=== PATIENT | female | born 1940 | race Caucasian/White ===

== ENCOUNTER 2023-06-03 16:01 | Outpatient (CLI) | payer MEDICARE, OTHER, SELFPAY ==
--- NOTE | ~2023-06-03 | XR_ITS ---
EXAMINATION: XR abdomen/kub 1V DATE: 06/03/2023 16:23 INDICATION: Acute right flank pain. TECHNIQUE: A supine view of the abdomen on 2 radiographs was obtained. COMPARISON: CT abdomen and pelvis 12/06/2017 FINDINGS: There are no dilated loops of bowel. There is a small volume of stool in the colon. Surgica l clips in the right upper quadrant are likely from cholecystectomy. There are phleboliths in the pel vis. There is a small right pleural effusion. A surgical clip overlies left hip. IMPRESSION: 1. Normal bowel gas pattern. 2. Small right pleural effusion. Reviewed, dictated and finalized at location E.
--- NOTE | ~2023-06-03 | CT_ITS ---
EXAMINATION: CT abdomen pelvis wo con DATE: 06/03/2023 16:28 INDICATION: Acute right flank pain TECHNIQUE: Computed tomography (CT) of the abdomen and pelvis was performed without intravenous contr ast. Automated exposure control and iterative reconstruction technique were employed. Exam dose: 364 .14 mGy-cm total exam DLP. COMPARISON: 06/03/2023 KUB 12/06/2017 CT abdomen pelvis FINDINGS: Mild chronic discoid atelectasis or scarring at the base of the left lower lobe. Peripheral 4 mm nodule, left lower lobe There is compressive atelectasis in the base of the right lower lobe due to mild right pleural effusi on. There is some prominent discoid atelectasis in the lower aspect of the middle lobe. Cardiomegaly. Coronary artery calcification. Status post cholecystectomy. The liver, spleen, pancreas, and adrenal glands are unremarkable on this limited noncontrast examination. Small nonobstructing upper pole left renal calculus is suggested. Left parapelvic cysts are suggested . No ureteral calculus or hydroureteronephrosis. The urinary bladder, uterus and adnexal areas are un remarkable. There is extensive abdominal aortic calcification but no aneurysm. No intraperitoneal or retroperiton eal or pelvic mass lesion or adenopathy or ascites is detected. Small sliding hiatal hernia. Normal appendix. No bowel obstruction, bowel wall thickening, pneumatosis or intraperitoneal free air . Small fat-containing umbilical hernia. No suspicious osteolytic or osteoblastic lesions are noted. IMPRESSION: No ureteral calculus or hydroureteronephrosis Mild right pleural effusion and right lower lobe compressive atelectasis, discoid atelectasis, right middle lobe 4 mm nonspecific peripheral left lower lobe pulmonary nodule Status post cholecystectomy Normal appendix Small sliding hiatal hernia Reviewed, dictated and finalized at Location A. Reviewed, dictated and finalized at location B. IMPRESSION: No ureteral calculus or hydroureteronephrosis Mild right pleural effusion and right lower lobe compressive atelectasis, disco id atelectasis, right middle lobe 4 mm nonspecific peripheral left lower lobe pulmonary nodule Status post cholecystectomy Normal appendix Small sliding hiatal hernia
== END 2023-06-03 16:02 | disposition home or self-care (01) ==
PROVIDERS: PCP Internal Medicine; Visit Provider Nurse Practitioner Adult Health
DX: R10.9 Unspecified abdominal pain (principal); K44.9 Diaphragmatic hernia without obstruction or gangrene; J90 Pleural effusion, not elsewhere classified; Z90.49 Acquired absence of other specified parts of digestive tract
CPT/HCPCS: 74018; 74176

== ENCOUNTER 2024-09-01 14:31 | Outpatient (CLI) | payer MEDICARE, OTHER, SELFPAY ==
[2024-09-03 15:52] LABS: H pylori, Urea Breath NOT DETECTED (NOT DETECTED)
== END 2024-09-01 14:32 | disposition home or self-care (01) ==
PROVIDERS: PCP Internal Medicine; Visit Provider Nurse Practitioner Family
DX: R10.12 Left upper quadrant pain (principal)
CPT/HCPCS: 83013

== ENCOUNTER 2024-09-29 00:57 | Day surgery (SDC) | payer MEDICARE, OTHER, SELFPAY ==
[2024-09-23 10:22] VITALS: BMI 22.0
--- OUTSIDE RECORDS SUMMARY | 2024-09-29 01:00 | XMS_ITS | Continuity of Care Document ---
Author Organization [facility] Address [address] [place] [id number] Phone Care Team Providers Care Stereotyper Name Role Phone Le Sincerelilibeth Unavailable Unavailable Procedures Procedure Date Visual Field Examination-Professional Au Visual Field Examination(s) Office/outpatient Visit, Est Optic Nerve Head Eval IPO Reduced 15% Eye Exam & Treatment Ophthalmoscopy, Subsequent Optic Nerve Topography Office/outpatient Visit, Est Optic Nerve Head Eval IPO Reduced 15% Office/outpatient Visit, Est Optic Nerve Head Eval IPO Reduced 15% Office/outpatient Visit, Est Optic Nerve Head Eval IPO Reduced 15% No Script Office/outpatient Visit, Est Optic Nerve Head Eval IPO Reduced 15% No Script Post-op Follow-up Visit Post-op Follow-up Visit Refraction Post-op Follow-up Visit Remove Cataract, Insert Lens PreOp Assessment Performed IOLMaster Office/outpatient Visit, Est Optic Nerve Head Eval IPO Reduced 15% Visual Field Examination-Professional De c-2008 Visual Field Examination(s) Eye Exam & Treatment Optic Nerve Head Eval Office/outpatient Visit, Est Optic Nerve Head Eval Visual Field Examination-Professional Oc Visual Field Examination(s) Office/outpatient Visit, Est Office/outpatient Visit, Est Advance Directives Directive Yes / No Effective Date File Name No Information Encounters Encounter Description Practice Location Reason(s) For Visit Diagnoses Date Provider Providers Copied on Encounter [facility], [address] [place] [address] [address], [place], [place], [id number], tel:[phone] [facility] [place] No Information 0 Le Lee. [facility] , [address], [place], [place], [facility], . tel:[phone] Referring Provider: Jesus Junior [facility] [address], [place], [facility]. tel:[phone] [facility], [address] [place] [address] [address], [place], [place], [id number], tel:[phone] [facility] [place] No Information 0 Le Lee. [facility] hospital[facility] [address], [address], [place], [facility], . tel:[phone] Referring Provider: [facility] [address], [place], [facility]. tel:[phone] Office/outpat ient Visit, Est [facility], [address] [place] [address] [address], [place], [place], [id number], tel:[phone] [facility] [place] No Information 0 Le Lee. [facility] hospital[facility] [address], [address], [place], [facility], . tel:[phone] [facility], [address], [place], [place], [address], [place] tel:[phone] [facility] [place][note 2] No Information Apr-2 2-201 0 Mandy Gastelum. [facility], [place], [facility], [place]. tel:[phone] Referring Provider: Андрей tirado, [address] [place] [address] [address], [place], [facility]. tel:[phone] [facility]pat [facility], [facility], [address] [place] [address] [address], [place], [place], [address], [place] tel:[phone] [facility] [place][note 2] No Information Mar-2 3-201 0 Kassy Chiang. [address] [place] [address], [place], [facility], [place]. tel:[phone] Office/outpat ient Visit, [facility], [address], [place], [place], [id number], [place] tel:[phone] [facility] [place][note 2] No Information Mar-0 8-201 0 Le Lee. [address] [place] [address] , [address], [place], [facility], [place]. tel:[phone] Office/outpat ient Visit, [facility], [address], [place], [place], [address], [place] tel:[phone] [facility] [place][note 2] No Information Nov-0 9-200 9 Le Lee. [address] [place] [address] , [address], [place], [facility], . tel:[phone] Office/outpat ient Visit, [facility], [address], [place], [place], [address], [place] tel:[phone] [facility] [place] [facility] No Information Jarrod-2 4-200 9 Suresh OD Rex. [address] , [address], [place], [facility], [place]. tel:[phone] [facility], [address], [place], [place], [address], [place] tel:[phone] [facility] [place] No Information Oct-2 5-200 9 Doisy Edward. [address] , [address], [place], [facility], [place]. tel:[phone] [facility], [address] [place] [address] [address], [place], [place], [address], [place] tel:[phone] [facility] [place] No Information b-1 8-200 9 Suresh OD Rex. [address] , [address], [place], [facility], [place]. tel:[phone] [facility], [address] [place] [address] [address], [place], [place], [id number], [place] tel:[phone] [facility] [place][note 2] No Information Feb-0 6-200 9 Doisy Edward. [address] , [address], [place], [facility], [place]. tel:[phone] [facility], [address], [place], [place], [address], [place] tel:[phone] [facility] No Information Feb-0 5-200 9 Doisy Edward. [address] , [address], [place], [facility], [place]. tel:[phone] Referring Provider: Nirav Valadez, [address] [place], [place], [facility]. tel:[phone] [facility], [address] [place] [address] [address], [place], [place], [id number], [place] tel:[phone] [facility] No Information 200 9 Le Lee. [facility] , [address], [place], [address], [place]. tel:[phone] Referring Provider: Jesus Junior, [facility] [address], [place], [facility]. tel:[phone] Office/outpat ient Visit, Est [facility], [address] [place] [address] [address], [place], [place], [address], [place] tel:[phone] [facility] No Information 200 9 Le Lee. [facility] , [address], [place], [facility], [place]. tel:[phone] [facility], [address] [place] [address] [address], [place], [place], [id number], [place] tel:[phone] [facility] [place] No Information 200 8 Le Lee. [facility] , [address], [place], [facility], [place]. tel:[phone] Referring Provider: [facility] [address], [place], [facility]. tel:[phone] [facility], [address] [place] [address] [address], [place], [place], [address], [place] tel:[phone] SEC [facility] No Information 200 8 Le Lee. [facility] , [address], [place], [address], [place]. tel:[phone] Referring Provider: [facility] [address], [place], [facility]. tel:[phone] [facility], [address] [place] [address] [address], [place], [place], [address], [place] tel:[phone] [facility] [place] [facility] No Information Jarrod-2 0-200 8 Le Lee. [facility] , [address], [place], [facility], [place]. tel:[phone] Office/outpat ient Visit, [facility], [address] [place] [address] [address], [place], [place], [id number], tel:[phone] [facility] [place] No Information 1 5-200 8 Doidenilson Lee. [address] [place], [place] [address]ate Center , [address], [place], [facility], [place]. tel:[phone] [facility], [address] [place] [address] [address], [place], [place], [address], tel:[phone] [facility] [place] No Information May-1 0-200 7 Le Lee. [address] [place], [place] [address]ate Center , [address], [place], [facility], [place]. tel:[phone] Referring Provider: Jesus Junior Critical [facility] [address], [place], [facility]. tel:[phone] [facility], [address] [place] [address] [address], [place], [place], [address], tel:[phone] [facility] [place] No Information May-0 3-200 7 Le Lee. [facility] [address], [address], [place], [facility], [place]. tel:[phone] Referring Provider: Jesus Junior Critical [facility] [address], [place], [facility]. tel:[phone] Office/outpat ient Visit, [facility], [address] [place] [address] [address], [place], [place], [address], tel:[phone] [facility] [place] No Information Jarrod-0 4-200 7 Le Lee. [facility] [address], [address], [place], [address], [place]. tel:[phone] Office/outpat ient Visit, [facility], [address], [place], [place], [address], [place] tel:[phone] [facility] No Information 5-200 7 Le Lee. [address] [facility] , [address], [place], [address], [place]. tel:[phone] Family History Family Member Type Diagnosis Age At Onset No Information Payers Payer name Insurance type Covered alliance party ID Authoriza tion(s) Medicare [facility] [id number] Social History Type Description Quantity Date Captured Comments Sex Female Smoking Status No Information Chief Complaint And Reason For Visit No Information Reason For Referral Reason For Referral No Information History Of Present Illness Encounter Date Complaint History Of Prese nt Illness No Information Functional Status Date Functional Assessmen t No Information Instructions Date Instruction Additional Infor mation No Information Assessments Type Assessment Date No Information Patient Care Teams Name Effective Dates (start - stop) Status Members No Information
--- OUTSIDE RECORDS SUMMARY | 2024-09-29 01:00 | XMS_ITS | Clinical Summary ---
Author Organization [facility] Medical [facility] Building B Address [address] [place] [address] Care Team Providers Care Esol Teacher Name Role Phone Jackson Blank MD Primary Care Provider Allergies Active Allergy Reactions Criticality Noted Date Comments Sulfa Hives,Swelling Medium 11/11/2023 Medications potassium chloride ER 10 mEq CR tablet Take 1 tablet/capsule (10 mEq total) by mouth 2 (two) times a day 3 Active atorvastatin (LIPITOR) 40 mg tablet Take 1 tablet (40 mg total) by mouth daily Active meclizine (ANTIVERT) 25 mg tablet Take 1 tablet (25 mg total) by mouth 2 (two) times a day 3 Active methenamine (HIPREX) 1 gram tablet Take 1 tablet (1 g total) by mouth 2 (two) times a day 4 Active montelukast (SINGULAIR) 10 mg tablet Take 1 tablet (10 mg total) by mouth nightly Active brinzolamide (AZOPT) 1 % ophthalmic suspension Administer 1 drop into both eyes 3 (three) times a day Active diazePAM (VALIUM) 5 mg tablet Take 1 tablet (5 mg total) by mouth every 12 (twelve) hours as needed for sleep Active lisinopril-hyd roCHLOROthiazi de (ZESTORETIC) 20-12.5 mg per tablet Take 1 tablet by mouth daily Active pantoprazole DR (PROTONIX) 40 mg EC tablet TAKE 1 TABLET BY MOUTH TWICE DAILY FOR 8 WEEKS 5 Active hydroCHLOROthi azide (MICROZIDE) 12.5 mg capsule Take 1 capsule (12.5 mg total) by mouth daily 3 09/14/19 25 Discontinu ed(Alterna te therapy) losartan (COZAAR) 50 mg tablet Take 1 tablet (50 mg total) by mouth 2 (two) times a day 09/14/19 25 Discontinu ed(Alterna te therapy) Active Problems Problem Noted Date Diagnosed Date Pleural effusion 12/25/2023 Assessment & Plan (05/26/2024 3:19 PM CDT): Thoracentesis was completed in October 2023 with 300ml removed Fluid revealed likely transudative effusion This presented after an upper respiratory illness Since she has begun to feel poorly again with fatigue, dry cough and mild dyspnea, we will re-check a chest X-ray and offer therapeutic thoracentesis if indicated. Assessment & Plan (12/25/2023 3:44 PM CDT): She is status post thoracentesis October 2023 Fluid revealed likely transudative effusion She has had no recurrence of symptoms and this presented after an upper respiratory illness We have discussed signs and symptoms that will require further evaluation but at this time I think it is reasonable to monitor her clinically SHAHID positive 12/25/2023 Assessment & Plan (05/26/2024 3:19 PM CDT): Other autoimmune serologies were negative ESR and CRP were mildly elevated We have discussed that SHAHID can be positive especially in females as they age She reports no sicca symptoms, no joint pains, no rashes or skin changes Pending imaging results, I would consider repeat AI serologies. Assessment & Plan (12/25/2023 3:46 PM CDT): Other autoimmune serologies were negative ESR and CRP were mildly elevated We have discussed that SHAHID can be positive especially in females as they age She reports no sicca symptoms, no joint pains, no rashes or skin changes Encounters Date Type Department Care Team Description 09/14/2024 11:25 AM PAYMENT REP Lab [address] Pleural effusion; Restrictive ventilatory defect 09/14/2024 11:00 AM PAYMENT REP Office Visit [facility] Pulmonary at [address] [place] [address] Rob Lisa MD Restrictive ventilatory defect (Primary Dx); Pleural effusion; Dyspnea on exertion 09/11/2024 1:54 PM PAYMENT REP - 09/11/2024 11:59 PM PAYMENT REP Hospital Encounter [facility] Respiratory [address] [place] [address] Dyspnea on exertion Discharge Disposition: Discharge to home or self care 09/04/2024 Orders Only [facility] Pulmonary at [address] [phone] Rob Lisa MD Dyspnea on exertion (Primary Dx) 09/04/2024 Telephone [facility] Pulmonary at [address] [phone] Yue Trujillo LPN chest x-ray 09/03/2024 3:59 PM PAYMENT REP - 09/03/2024 11:59 PM PAYMENT REP Hospital Encounter [facility] [address] [place] [address] Shortness of breath Discharge Disposition: Discharge to home or self care 09/03/2024 2:00 PM PAYMENT REP - 09/03/2024 11:59 PM PAYMENT REP Hospital Encounter [facility] Respiratory [address] [place] [address] Dyspnea on exertion Discharge Disposition: Discharge to home or self care 09/03/2024 2:00 PM PAYMENT REP - 09/03/2024 11:59 PM PAYMENT REP Hospital Encounter [facility] Cardiology [address] [place] [address] Dyspnea on exertion Discharge Disposition: Discharge to home or self care 09/03/2024 Orders Only [facility] Pulmonary at [address] [phone] Stuart French DO Shortness of breath (Primary Dx) 08/05/2024 10:55 AM PAYMENT REP Lab [address] Dyspnea on exertion 08/05/2024 10:15 AM PAYMENT REP Office Visit [facility] Pulmonary at [address] [phone] Rob Lisa MD Dyspnea on exertion (Primary Dx); Pleural effusion 07/14/2024 1:15 PM PAYMENT REP Ancillary Procedure [facility] Imaging at [address] [address] Dyspnea on exertion 07/13/2024 Orders Only [facility] Pulmonary at [address] [place] [phone] Rob Lisa MD Dyspnea on exertion (Primary Dx) 07/13/2024 Telephone [facility] Pulmonary at [address] [place] [phone] Asia Anderson LPN Shortness of Breath 06/29/2024 Telephone [facility] Pulmonary at [address] [place] [phone] Yue Trujillo LPN from Last 3 Months Surgical History Surgery Date Site/Laterality Comments CHOLECYSTECTOMY KNEE SURGERY Right US GUIDED THORACENTESIS 11/14/2023 N/A Medical History Medical History Date Comments High cholesterol SHAHID positive 12/25/2023 Pleural effusion Family History Medical History Relation Name Comments Colon cancer Father Heart disease Mother Relation Name Status Comments Father Mother Social History Tobacco Use Types Packs/Day Years Used Date Smoking Tobacco: Never Smokeless Tobacco: Never Tobacco Cessation:Counseling Given: Not Answered Personal Safety Answer Date Recorded Have you ever been in or are you currently in a harmful physical or emotional relationship or is someone making you feel afraid or unsafe? Denies 11/14/2023 Comments Unknown Sex and Gender Information Value Date Recorded Sex Assigned at Not on file Legal Sex Female 6:30 AM PAYMENT REP Gender Identity Not on file Sexual Orientation Not on file Obstetrics History Last Filed Vital Signs Vital Sign Reading Time Taken Comments Blood Pressure 182/70 09/14/2024 10:45 AM PAYMENT REP Pulse 90 09/14/2024 10:45 AM PAYMENT REP Temperature 35.4 C (95.7 F) 09/14/2024 10:45 AM PAYMENT REP Respiratory Rate 16 06/11/2024 12:58 PM CDT Oxygen Saturation 95% 09/14/2024 10:45 AM PAYMENT REP Inhaled Oxygen Concentration - - Weight 50.6 kg (111 lb 9.6 oz) 09/14/2024 10:45 AM PAYMENT REP Height 152.4 cm (5') 09/14/2024 10:45 AM PAYMENT REP Body Mass Index 21.8 09/14/2024 10:45 AM PAYMENT REP Plan of Treatment Health Maintenance Due Date Last Done Comments Depression Screening 1940 Osteoporosis Screening-Bone Density Scan 1940 DTaP/Tdap/Td Vaccine (1 - Tdap) 1950 Hepatitis B Screening 1957 Zoster Vaccine (1 of 2) 1989 Well Visit 65+ 2004 Pneumococcal vaccine 65+ (2 of 2 - PCV) 05/10/2015 05/10/2014, 05/28/2002 Covid-19 Vaccine (3 - 2023-2 5 season) 2024 11/08/2020, 10/11/2020 Influenza Vaccine (#1) 2024 , 06/13/2021, 05/21/2021, Additional history exists Fall Risk Assessment 11/13/2024 11/14/2023 Procedures Procedure Name Priority Date/Time Associated Diagnosis Comments CLINICAL PATHOLOGY REPORT Routine 09/14/2024 11:22 AM PAYMENT REP SHAHID QUALITATIVE WITH REFLEX TO SHAHID QUANTITATIVE Routine 09/14/2024 11:22 AM PAYMENT REP Restrictive ventilatory defect SONI ANTIBODY EVALUATION WITH REFLEX Routine 09/14/2024 11:22 AM PAYMENT REP Restrictive ventilatory defect CYCLIC CITRUL PEPTIDE ANTIBODY, IGG Routine 09/14/2024 11:22 AM PAYMENT REP Restrictive ventilatory defect RHEUMATOID FACTOR Routine 09/14/2024 11: 22 AM PAYMENT REP Restrictive ventilatory defect ERYTHROCYTE SEDIMENTATION RATE Routine 09/14/2024 11:22 AM PAYMENT REP Restrictive ventilatory defect CRP (ACUTE PHASE) Routine 09/14/2024 11: 22 AM PAYMENT REP Restrictive ventilatory defect PROTEIN ELECTROPHORESIS, WITH REFLEX, SERUM Routine 09/14/2024 11:22 AM PAYMENT REP Pleural effusion PRO B-TYPE NATRIURETIC PEPTIDE Routine 09/14/2024 11:22 AM PAYMENT REP Pleural effusion PULMONARY FUNCTION TEST (PFT) Routine 09/11/2024 3:25 PM PAYMENT REP Dyspnea on exertion PULMONARY FUNCTION TEST (PFT) Routine 09/03/2024 4:30 PM PAYMENT REP Dyspnea on exertion XR CHEST PA LATERAL 2 VIEWS Schedule Routine, Read Routine (OP Routine) 09/03/2024 4:07 PM PAYMENT REP Shortness of breath TRANSTHORACIC ECHO (TTE) COMPLETE W DOPPLER/CF WO CONTRAST Routine 09/03/2024 3:07 PM PAYMENT REP Dyspnea on exertion DIFFERENTIAL AUTO Routine 08/05/2024 10: 52 AM PAYMENT REP Dyspnea on exertion CBC WITH AUTO DIFFERENTIAL Routine 08/05/2024 10:52 AM PAYMENT REP Dyspnea on exertion TSH Routine 08/05/2024 10:52 AM PAYMENT REP Dyspnea on exertion XR CHEST PA LATERAL 2 VIEWS Schedule Routine, Read Routine (OP Routine) 07/14/2024 1:11 PM PAYMENT REP Dyspnea on exertion from Last 3 Months Results * (ABNORMAL) SHAHID ab ql w/rflx to SHAHID qn (09/14/2024 11:22 AM PAYMENT REP) SHAHID Positive 1:320 Comment: Interpretive Data Normal range for SHAHID Qualitative Antibody = Negative. 1. SHAHID is performed using indirect immunofluorescence against HEp-2 cells 2. SHAHID titers are performed on all positive qualitative results. 3. A significantly positive SHAHID result is defined as a positive nuclear fluorescence at a titer of 1:80 or greater. 4. 15% of normal people above age 65 have significantly positive SHAHID results. 5% or less of normal people age 65 or under have significantly positive SHAHID results. Current interpretive data was last revised on 2020. Testing performed by: [facility], [address] [place] [address] SHAHID, quant 1:320 titer LEOBARDO BROWN H (EH) Comment:Testing performed by : [facility], [address] [facility], [address] SHAHID, interp Homogeneous (A) LEOBARDO ANDERSON (EH) Comment:Testing performed by : [facility], [address] [facility], [address] Blood 09/14/2024 11:2 2 AM PAYMENT REP 09/14/2024 4:15 PM PAYMENT REP us Rob Lisa MD LAB BLOOD ORDERABLES Final Resul t LEOBARDO ANDERSON ([place]) [address] [place] [address] [place] [address] * Clinical pathology report (09/14/2024 11:22 AM PAYMENT REP) Miscellaneous 09/14/2024 11: 22 AM PAYMENT REP 09/15/2024 8:06 AM PAYMENT REP Narrative 09/17/2024 2:52 PM PAYMENT REP EPIC results best viewed via link to PDF [facility] Department of Pathology [address] [place] [id number] Final Report Note to Patients: This report may contain a detailed description of human tissue sent by a health care provider to the laboratory for pathologic evaluation. The content of this report is essential for diagnosis and may provide important critical findings. This information may be unfamiliar to patients to review without a medical professional present. It is advised that the patient review this report in the presence of a health care provider who can answer questions and explain the details. Patient Name: GABRIELA RICO Address: [address] [place] [address] Gender: F : 1940 (Age: 84) Service: Location: [facility] #: [id number] Patient Type: [facility] EP ANCILLARY Taken: 09/14/2024 Received: 09/15/2024 Accessioned: 09/15/2024 Physician(s): Rob Lisa M.D. [facility] Specimen(s) Received A: Blood (serum) Serum Protein ElectrophoresisReported:09/17/2024 Interpretation: Serum Protein Electrophoresis: Mild hypoalbuminemia. Comment: Serum Protein Electrophoresis: Electrophoresis shows a mild hypoalbuminemia. See Epic and/or separate report for protein fraction table. Domo Whalen MD PhDReport Electronically Reviewed and Signed Out By Domo Whalen MD PhD 09/17/2024 14:51:39 The performance characteristics of some immunohistochemical stains, fluorescence in-situ hybridization tests and immunophenotyping by flow cytometry cited in this report (if any) were determined by the Surgical Pathology Department at [facility] as part of an ongoing supplier quality engineer program and in compliance with federally mandated regulations drawn from the Clinical Laboratory Improvement Act of 1988 (CLIA '88). Some of these tests rely on the use of analyte specific reagents and are subject to specific labeling requirements by the US Food and Drug Administration. Such diagnostic tests may only be performed in a facility that is certified by the Department of Health and Human Services as a high complexity laboratory under CLIA '88. The FDA has determined that such clearance or approval is not necessary. This test is used for clinical purposes. It should not be regarded as investigational or for research. Nevertheless, federal rules concerning the medical use of analyte specific reagents require that the following disclaimer be attached to the report: This test was developed and its performance characteristics determined by the Surgical Pathology Department [facility]. It has not been cleared or approved by the U. S. Food and Drug Administration. REPORT IMAGES AND SCANNED DOCUMENTS, IF INCLUDED, ONLY VIEWABLE IN PDF VERSION OF REPORTe o Rob Lisa MD LAB PATHOLOGY ORDERABLES Final R esult * SONI ab eval w/reflex (09/14/2024 11:22 AM PAYMENT REP) SONI ab Negative Negative Comment: Interpretive Data Positive Screens will be reflexed to specific testing for Antibodies against the following antigens: Abena-1 Ab, PSYCHOLOGICAL AIDE Ab, Scl-70 Ab, Quevedo Ab, SS-A/Ro Ab, and SS- B/La Ab. Further testing for dsDNA, Centromere, or Ribosomal P antibodies is suggested in patient with a positive screen and negative specific antibodies. Current interpretive data was last revised on 2023. Testing performed by: [facility], 1 [facility], [place]., [address] Blood 09/14/2024 11:2 2 AM PAYMENT REP 09/14/2024 4:15 PM PAYMENT REP us Rob Lisa MD LAB BLOOD ORDERABLES Final Resul t LEOBARDO ANDERSON ([place]) [address] [facility] [place] [address] * Pro B-type natriuretic peptide (09/14/2024 11:22 AM PAYMENT REP) NT-proBNP 324 <=450 pg/mL Comment: Interpretive Comments: A. Dyspnea in Acute Care Setting All Ages: < 300 pg/ml, acute heart failure unlikely. < 50 yrs: 300 - 450 pg/ml, further investigation warranted. > 450 pg/ml, acute heart failure likely. 50 - 74 yrs: 300 - 900 pg/ml, further investigation warranted. > 900 pg/ml, acute heart failure likely . > or = 75 yrs: 450 - 1800 pg/ml, further investigation warranted. > 1800 pg/ml, acute heart failure likely. B. Non-acute Setting < 75 yrs < 125 pg/ml, rules out heart failure. > or = 125 pg/ml, further investigation warranted. > or = 75 yrs < 450 pg/ml, rules out heart failure. > or = 450 pg/ml, further investigation warranted. - Knowledge of each individual patient's NT-proBNP range may be more useful than using similar cut-points for every patient. Please note that marked elevations in NT-proBNP levels may be observed in state other than Left Ventricular Congestive Failure, including: acute coronary syndromes, right heart strain/failure (including pulmonary embolism and cor pulmonale), critical illness, renal failure, as well as advanced age. - References: 1. Kay ACEVEDO et.al. Eur Heart J. 2006:27:330-337. 2. Erick RW, Kelly AM. J. AM Alexx Cardiol: Cardiovasc Imag. 2009;2: 216- 225. Interpretive Data Last Revised Date: 2018. Blood 09/14/2024 11:2 2 AM PAYMENT REP 09/14/2024 1:31 PM PAYMENT REP Rob Lisa MD LAB BLOOD ORDERABLES Final Resul t LEOBARDO ANDERSON ([place]) [address] [facility] [place] [address] * Cyclic citrul peptide antibody, IgG (09/14/2024 11:22 AM PAYMENT REP) CCP Ab <0.5 <=2.9 units/mL Comment: Interpretive data Negative: <3 units/mL Positive: > or equal to 3 units/mL Current interpretive data was last revised on 2016. Testing performed by: [facility], [address] [place]., [address] Blood 09/14/2024 11:2 2 AM PAYMENT REP 09/14/2024 4:16 PM PAYMENT REP Rob Lisa MD LAB BLOOD ORDERABLES Final Resul t Performing Organization Address [facility]/ZIP Co de Phone Number LEOBARDO ANDERSON ([place]) [address] [facility] [place] [address] * (ABNORMAL) Erythrocyte sedimentation rate (09/14/2024 11:22 AM PAYMENT REP) Erythrocyte sedimentation rate 134(H) 1 - 30 mm/hr Blood 09/14/2024 11:2 2 AM PAYMENT REP 09/14/2024 1:31 PM PAYMENT REP Rob Lisa MD LAB BLOOD ORDERABLES Final Resul t LEOBARDO ANDERSON ([place]) [address] [facility] [place] [address] * Rheumatoid factor (09/14/2024 11:22 AM PAYMENT REP) Rheumatoid factor, quant 15 <=15 IUnits/mL Comment:Testing performed by : [facility], [address] [place] [address]., [id number] Blood 09/14/2024 11:2 2 AM PAYMENT REP 09/14/2024 4:33 PM PAYMENT REP Rob Lisa MD LAB BLOOD ORDERABLES Final Resul t LEOBARDO ANDERSON (EH) [address] [facility] [place] [address] * (ABNORMAL) CRP (acute phase) (09/14/2024 11:22 AM PAYMENT REP) [facility] CRP 135.6(H) <=10.0 mg/L Blood 09/14/2024 11:2 2 AM PAYMENT REP 09/14/2024 1:31 PM PAYMENT REP Rob Lisa MD LAB BLOOD ORDERABLES Final Resul t Performing Organization Address City/[facility] Co de Phone Number LEOBARDO ANDERSON (EH) [address] [facility] [place] [address] * (ABNORMAL) Protein electrophoresis with reflex, serum (09/14/2024 11:22 AM PAYMENT REP) Pathologist [facility] Protein, sr 7.2 6.2 - 8.2 g/dL Comment:Testing performed by : [facility], [address] [place] [address]., [id number] Albumin 2.8(L) 3.2 - 5.0 g/dL [facility] (EH) Comment:Testing performed by : [facility], [address] [place] [address]., [id number] Alpha-1 globulin 0.7(H) 0.2 - 0.4 g/dL [facility] (EH) Comment:Testing performed by : [facility], [address] [place] [address]., [address] Alpha-2 globulin 1.1(H) 0.5 - 1.0 g/dL [facility] (EH) Comment:Testing performed by : [facility], [address] [place] [address]., [id number] Beta-1 globulin 0.5 0.3 - 0.6 g/dL LEOBARDO ANDERSON (EH) Comment:Testing performed by : [facility], [address] [place] [address]., [id number] Beta-2 globulin 0.7(H) 0.2 - 0.6 g/dL LEOBARDO ANDERSON (EH) Comment:Testing performed by : [facility], [address] [place] [address]., [id number] Gamma globulin 1.4 0.5 - 1.7 g/dL LEOBARDO ANDERSON (EH) Comment:Testing performed by : [facility], [address] [place] [address]., [id number] SPEP interp See Cl Path Rpt LEOBARDO ANDERSON (EH) Comment:Testing performed by : [facility], [address] [place] [address], [id number] Blood 09/14/2024 11:2 2 AM PAYMENT REP 09/14/2024 4:33 PM PAYMENT REP us Rob Lisa MD LAB BLOOD ORDERABLES Final Resul t LEOBARDO MONICA ([place]) [address] [facility] Department [place] [address] * Pulmonary Function Test - (09/11/2024 3:25 PM PAYMENT REP) Anatomical Region Laterality Modality PFT 09/11/2024 2:05 PM PAYMENT REP Impressions 09/15/2024 5:05 PM PAYMENT REP 1. Severe restrictive ventilatory limitation 2. Severe diffusion impairment Electronically signed by Rob Lisa MD Pulmonary & Critical Care Narrative 09/15/2024 5:05 PM PAYMENT REP PULMONARY FUNCTION TESTS Gabriela Rico 84 y.o. 09/15/2024 INTERPRETATION Please see technologist's comments mentioned in attached results report. SPIROMETRY: Pre bronchodilator FEV1 is 49 % predicted, FVC is 43 % predicted, FEV1/FVC is 0.88 Bronchodilator response: No Inspection of the patient's flow-volume loops shows: Normal configuration of the inspiratory and expiratory limbs. LUNG VOLUMES: Lung volumes by body plethysmography: TLC is 43 % predicted, RV is 42 % predicted DLCO: Unadjusted for hemoglobin and carboxyhemoglobin DLCO is 38 % predicted Rob Lisa MD PFT ORDERABLES Final Result * Pulmonary Function Test -[facility]; Complete PFT with 6 Minute Walk (09/03/2024 4:30 PM PAYMENT REP) Anatomical Region Laterality Modality PFT Impressions 09/07/2024 8:42 AM PAYMENT REP 1. Total 6 minute walk distance is 350 feet. At this level exertion the patient did not have any exercise-induced hypoxemia requiring supplemental oxygen. While she did not require supplemental oxygen she did have significant desaturation to 89% from a resting oxygen saturation of 98%. Significant hypertension at rest and with activity was noted Rob Lisa MD Pulmonary and Critical Care Narrative 09/07/2024 8:42 AM PAYMENT REP SIX MINUTE WALK TEST Gabriela Rico 09/07/2024 Interpretation: The patient walked for 6 minutes on level ground and covered total distance of 350 feet. On the Ariadna scale at baseline, reported dyspnea was 0. At the end of the study, reported dyspnea on the Ariadna scale was 3. Oxygen saturation remained above 89% throughout the study. Rob Lisa MD PFT ORDERABLES Final Result * X-ray chest 2 views (09/03/2024 4:07 PM PAYMENT REP) Anatomical Region Laterality Modality Body, Chest N/A Computed Radiogr aphy 09/06/2024 5:41 AM PAYMENT REP Narrative 09/06/2024 5:52 AM PAYMENT REP EXAM DESCRIPTION: XR CHEST PA LATERAL 2 VIEWS REASON FOR STUDY: Shortness of breath SOB mostly with exertion x 1 month HX of fluid on Right side lung. HX of thoracentesis. HTN: controlled with meds. Non smoker TECHNIQUE: 2 radiographic view(s) of the chest. COMPARISON: CT 06/09/2024. Chest radiograph 07/14/2024 and 05/26/2024.. FINDINGS: LUNGS: Right paratracheal opacity is redemonstrated. This in part corresponds to prominent paratracheal vessels. There was likely a component of partial right upper lobe atelectasis on CT of 06/09/2024. Consider follow-up with chest CT. Unchanged small right pleural effusion. Right mid to lower lung opacities are similar to 07/14/2024.. No pneumothorax is seen. HEART/MEDIASTINUM: The heart size and cardiomediastinal contours are unchanged. There is thoracic aortic atherosclerosis. LINES/TUBES: Cholecystectomy clips are noted. BONES: No gross evidence of acute displaced fracture or aggressive bone lesion is seen. Visualized upper abdomen is grossly unremarkable. IMPRESSION: Unchanged small right pleural effusion. Right paratracheal opacity, in part corresponding to prominent paratracheal vessels. Enhancing medial right upper lobe tissue on CT of 06/09/2024, which may have represented a component of atelectasis. Chest CT follow-up may be helpful for further evaluation. Right mid to lower lung opacities are similar to 07/14/2024. THIS IS AN ELECTRONICALLY VERIFIED FINAL REPORT 09/06/2024 5:52 AM - Electronically signed by Gee García M.D. MZ: LACEY Report ID: [id number] Reading Location: [place] [address] Procedure Note Gee García MD - 09/06/2024 EXAM DESCRIPTION: XR CHEST PA LATERAL 2 VIEWS REASON FOR STUDY: Shortness of breath SOB mostly with exertion x 1 month HX of fluid on Right side lung. HXof thoracentesis. HTN: controlled with meds. Non smoker TECHNIQUE: 2 radiographic view(s) of the chest. COMPARISON: CT 06/09/2024. Chest radiograph 07/14/2024 and 05/26/2024.. FINDINGS: LUNGS: Right paratracheal opacity is redemonstrated. This in part corresponds to prominent paratracheal vessels. There was likely acomponent of partial right upper lobe atelectasis on CT of 06/09/2024. Consider follow-up with chest CT. Unchanged small right pleural effusion. Rightmid to lower lung opacities are similar to 07/14/2024.. No pneumothorax isseen. HEART/MEDIASTINUM: The heart size and cardiomediastinal contours are unchanged. There is thoracic aortic atherosclerosis. LINES/TUBES: Cholecystectomy clips are noted. BONES: No gross evidence of acute displaced fracture or aggressive bone lesion is seen. Visualized upper abdomen is grossly unremarkable. IMPRESSION: Unchanged small right pleural effusion. Right paratracheal opacity, in part corresponding to prominentparatracheal vessels. Enhancing medial right upper lobe tissue on CT of 06/09/2024,which may have represented a component of atelectasis. Chest CT follow-up maybe helpful for further evaluation. Right mid to lower lung opacities are similar to 07/14/2024. THIS IS AN ELECTRONICALLY VERIFIED FINAL REPORT 09/06/2024 5:52 AM - Electronically signed by Gee García M.D. MZ: MZ Report ID: [id number] Reading Location: [place] [address] us Stuart French DO IMG XR PROCEDURES Final R esult * TRANSTHORACIC ECHO (TTE) COMPLETE W DOPPLER/CF WO CONTRAST (09/03/2024 3:07 PM PAYMENT REP) LV EF 60 % CONS SCIMAGE Anatomical Region Laterality Modality Ultrasound 09/03/2024 2:32 PM PAYMENT REP Narrative 09/03/2024 4:47 PM PAYMENT REP [address] [address] Echocardiogram Report Patient Name: GABRIELA RICO L : 1940 Study Date: 09/03/2024 2:32:35 PM Gender: F Tech: ESTUARDO Location: Echo Lab 2 Ref Provider: ROB LISA Height(Cm): BSA: Weight(Kg): Quality: Adequate Order Provider: ROB LISA PROCEDURES: Echocardiographic Report: Transthoracic echocardiogram with complete 2D, M-Mode, and color Doppler examination. INDICATIONS: Dyspnea on exertion R06.09 Other forms of dyspnea. MEASUREMENTS: 2D/MM Value Range Doppler Value Range EF Teich MM 60.0 % [ 54.0 - 74.0 ] ESTIVEN Vmax 2.13 cm2 Estimated EF 60 to 65 % AV Mean PG 3 mmHg LVIDd MM 4.20 cm [ 3.80 - 5.20 ] AV Peak Angel 1.21 m/s [ 1.00 - 1.70 ] LVIDs MM 2.90 cm [ 2.20 - 3.50 ] AV VTI 21.88 cm LVPWd MM 1.30 cm [ 0.60 - 0.90 ] LVOT Diam 2.15 cm IVSd MM 1.20 cm [ 0.60 - 0.90 ] LVOT Peak Angel 0.71 m/s [ 0.70 - 1.10 ] LA Dimension MM 2.65 cm [ 2.70 - 3.80 ] LVOT VTI 12.48 cm AoR Diam MM 2.51 cm [ 2.70 - 3.70 ] MV E Peak Angel 0.74 m/s [ 0.60 - 1.30 ] MV A Peak Angel 0.90 m/s [ 1.00 - 1.20 ] MV Mean PG 2 mmHg MV PHT 38 msec [ 20 - 100 ] MVA 5.80 MV Decel Time 132 msec [ 104 - 258 ] PV Peak Angel 1.11 m/s [ 0.40 - 0.80 ] TR Peak Angel 1.78 m/s [ 1.00 - 2.80 ] TR Peak PG 13 mmHg RVSP 21.00 mmHg [ 10.00 - 36.00 ] E` 0.07 m/s E/E` 10.97 [ <= 10.00 ] PA Pressure 21.00 mmHg [ 10.00 - 36.00 ] 2D/MM Value Range Doppler Value Range - FINDINGS: Atrial Septum: Normal atrial septum. Left Ventricle: Mild concentric left ventricular hypertrophy. Normal global left ventricular systolic function. Diastolic dysfunction is present. Ejection Fraction is estimated to be 60 to 65 %. Left Atrium: There is mild enlargement of left atrium. Right Ventricle: Normal right ventricular size. Normal right ventricular systolic function. Right Atrium: The right atrium is normal in size. Aortic Valve: Aortic cusps appear mildly sclerotic. Trace aortic valve regurgitation. Mitral Valve: Normal structure of the mitral valve. Trivial regurgitation of the mitral valve. Pulmonic Valve: Normal structure of the pulmonic valve. Trivial regurgitation in the pulmonic valve. Tricuspid Valve: Normal structure of the tricuspid valve. Trivial regurgitation in the tricuspid valve. Pericardium: There is an anterior echo free space consistent with epicardial fat pad. Aorta: Normal aortic root. IVC: Normal size and normal respiratory collapse consistent with normal right atrial pressure (<5 mmHg). CONCLUSIONS: Mild concentric left ventricular hypertrophy. Normal global left ventricular systolic function. Diastolic dysfunction is present. Ejection Fraction is estimated to be 60 to 65 %. There is mild enlargement of left atrium. Normal structure of the mitral valve. Trivial regurgitation of the mitral valve. Aortic cusps appear mildly sclerotic. Trace aortic valve regurgitation. Normal structure of the tricuspid valve. Trivial regurgitation in the tricuspid valve. Technically difficult study with limited views. Electronically Signed By: Dr Gianluca Mcgee 09/03/2024 4:47:15 PM PAYMENT REP Procedure Note Gianluca Mcgee MD - 09/03/[address] [address] Echocardiogram Report Patient Name: GABRIELA RICO L : 1940 Study Date: 09/03/2024 2:32:35 PM Gender: F Tech: ESTUARDO Location: Echo Lab 2 Ref Provider: ROB LISA Height(Cm): BSA: Weight(Kg): Quality: Adequate Order Provider: ROB LISA PROCEDURES: Echocardiographic Report: Transthoracic echocardiogram with complete 2D, M-Mode, and color Dopplerexamination. INDICATIONS: Dyspnea on exertion R06.09 Other forms of dyspnea. MEASUREMENTS: 2D/MM Value Range Doppler ValueRange EF Teich MM 60.0 % [ 54.0 - 74.0 ] ESTIVEN Vmax 2.13cm2 Estimated EF 60 to 65 % AV Mean PG 3mmHg LVIDd MM 4.20 cm [ 3.80 - 5.20 ] AV Peak Angel 1.21m/s [ 1.00 - 1.70 ] LVIDs MM 2.90 cm [ 2.20 - 3.50 ] AV VTI 21.88cm LVPWd MM 1.30 cm [ 0.60 - 0.90 ] LVOT Diam 2.15cm IVSd MM 1.20 cm [ 0.60 - 0.90 ] LVOT Peak Angel 0.71m/s [ 0.70 - 1.10 ] LA Dimension MM 2.65 cm [ 2.70 - 3.80 ] LVOT VTI 12.48cm AoR Diam MM 2.51 cm [ 2.70 - 3.70 ] MV E Peak Angel 0.74m/s [ 0.60 - 1.30 ] MV A Peak Angel 0.90 m/s [ 1.00 - 1.20 ] MV Mean PG 2 mmHg MV PHT 38 msec [ 20 - 100 ] MVA 5.80 MV Decel Time 132 msec [ 104 - 258 ] PV Peak Angel 1.11 m/s [ 0.40 - 0.80 ] TR Peak Angel 1.78 m/s [ 1.00 - 2.80 ] TR Peak PG 13 mmHg RVSP 21.00 mmHg [ 10.00 - 36.00 ] E` 0.07 m/s E/E` 10.97 [ <= 10.00 ] PA Pressure 21.00 mmHg [ 10.00 - 36.00 ] 2D/MM Value Range Doppler ValueRange - FINDINGS: Atrial Septum: Normal atrial septum. Left Ventricle: Mild concentric left ventricular hypertrophy. Normal global leftventricular systolic function. Diastolic dysfunction is present. Ejection Fraction is estimatedto be 60 to 65 %. Left Atrium: There is mild enlargement of left atrium. Right Ventricle: Normal right ventricular size. Normal right ventricular systolicfunction. Right Atrium: The right atrium is normal in size. Aortic Valve: Aortic cusps appear mildly sclerotic. Trace aortic valve regurgitation. Mitral Valve: Normal structure of the mitral valve. Trivial regurgitation of the mitralvalve. Pulmonic Valve: Normal structure of the pulmonic valve. Trivial regurgitation in thepulmonic valve. Tricuspid Valve: Normal structure of the tricuspid valve. Trivial regurgitation in thetricuspid valve. Pericardium: There is an anterior echo free space consistent with epicardial fat pad. Aorta: Normal aortic root. IVC: Normal size and normal respiratory collapse consistent with normal rightatrial pressure (<5 mmHg). CONCLUSIONS: Mild concentric left ventricular hypertrophy. Normal global leftventricular systolic function. Diastolic dysfunction is present. Ejection Fraction is estimatedto be 60 to 65 %. There is mild enlargement of left atrium. Normal structure of the mitral valve. Trivial regurgitation of the mitralvalve. Aortic cusps appear mildly sclerotic. Trace aortic valve regurgitation. Normal structure of the tricuspid valve. Trivial regurgitation in thetricuspid valve. Technically difficult study with limited views. Electronically Signed By: Dr Gianluca Mcgee 09/03/2024 4:47:15 PM PAYMENT REP Rob Lisa MD CV ECHO PROCEDURES Final Result * (ABNORMAL) Differential, auto (08/05/2024 10:52 AM PAYMENT REP) Neutrophil abs 6.7(H) 1.5 - 6.5 K/cumm Imm gran abs 0.1 0.0 - 0.1 K/cumm [facility] ([facility]) Lymphocyte abs 1.1 0.8 - 3.3 K/cumm [facility] ([facility]) Monocyte abs 0.9(H) 0.2 - 0.8 K/cumm [facility] ([facility]) Eosinophil abs 0.1 0.0 - 0.5 K/cumm [facility] ([facility]) Basophil abs 0.0 0.0 - 0.1 K/cumm [facility] ([facility]) Neutrophil pct 75.7 % [facility] ([facility]) Comment: Interpretive Data Percent cell count reference ranges are not reported, since discordance with absolute values may lead to misinterpretation of CBC data. Current Interpretive Data was last revised on 2017. Imm gran pct 0.6 % [facility] ([facility]) Comment: Interpretive Data Percent cell count reference ranges are not reported, since discordance with absolute values may lead to misinterpretation of CBC data. Current Interpretive Data was last revised on 2017. Lymphocyte pct 12.0 % [facility] ([facility]) Comment: Interpretive Data Percent cell count reference ranges are not reported, since discordance with absolute values may lead to misinterpretation of CBC data. Current Interpretive Data was last revised on 2017. Monocyte pct 10.4 % [facility] ([facility]) Comment: Interpretive Data Percent cell count reference ranges are not reported, since discordance with absolute values may lead to misinterpretation of CBC data. Current Interpretive Data was last revised on 2017. Eosinophil pct 0.8 % [facility] ([facility]) Comment: Interpretive Data Percent cell count reference ranges are not reported, since discordance with absolute values may lead to misinterpretation of CBC data. Current Interpretive Data was last revised on 2017. Basophil pct 0.5 % [facility] ([facility]) Comment: Interpretive Data Percent cell count reference ranges are not reported, since discordance with absolute values may lead to misinterpretation of CBC data. Current Interpretive Data was last revised on 2017. Blood 08/05/2024 10:5 2 AM PAYMENT REP 08/05/2024 1:43 PM PAYMENT REP us Rob Lisa MD LAB BLOOD ORDERABLES Final Resul t [facility] ([facility]) [address] [facility] [place] [address] * (ABNORMAL) CBC with auto differential (08/05/2024 10:52 AM PAYMENT REP) WBC 8.9 3.8 - 9.9 K/cumm Hgb 11.0(L) 11.9 - 15.5 g/dL [facility] ([facility]) Hct 35.7 35.6 - 45.5 % [facility] ([facility]) Plt 436(H) 150 - 400 K/cumm [facility] ([facility]) MPV 9.0(L) 9.1 - 12.3 fL [facility] ([facility]) RBC 4.19 3.90 - 5.20 M/cumm [facility] ([facility] MCV 85.2 81.3 - 96.4 fL [facility] ([facility]) MCH 26.3(L) 27.1 - 33.3 pg [facility] ([facility]) MCHC 30.8(L) 32.3 - 35.7 g/dL [facility] ([facility]) RDW CV 14.5 11.1 - 14.9 % [facility] ([facility]) RDW SD 45.0 35.7 - 48.1 fL [facility] ([facility] NRBC abs 0.00 0.00 - 0.01 K/cumm [facility] ([facility] Blood 08/05/2024 10:5 2 AM PAYMENT REP 08/05/2024 1:43 PM PAYMENT REP Rob Lisa MD LAB BLOOD ORDERABLES Final Resul t Performing Organization Address City/[facility]/ZIP Co de Phone Number [facility] ([place]) [address] [facility] [place] [address] * TSH (08/05/2024 10:52 AM PAYMENT REP) Thyroid Stimulating Hormone 1.59 0.30 - 4.20 mcIUnit/mL Blood 08/05/2024 10:5 2 AM PAYMENT REP 08/05/2024 1:43 PM PAYMENT REP Rob Lisa MD LAB BLOOD ORDERABLES Final Resul t Performing Organization Address City/[facility] Co de Phone Number [facility] ([place]) [address] [facility] [place] [address] * X-ray chest 2 views (07/14/2024 1:11 PM PAYMENT REP) Anatomical Region Laterality Modality Body, Chest N/A Digital Radiogra phy 07/14/2024 1:26 PM PAYMENT REP Narrative 07/14/2024 1:28 PM PAYMENT REP EXAM DESCRIPTION: XR CHEST PA LATERAL 2 VIEWS REASON FOR STUDY: Pt complains of SOB and cough x 1 month. No asthma,copd,cancer,heart disease. No chest surgery. No smoking hx TECHNIQUE: Two views COMPARISON: 05/26/2024 FINDINGS: Heart size and vascularity appear normal. Aortic arch well-defined on the left. Right paratracheal soft tissue density persists. Please correlate with recent chest CT of 06/09/2024 demonstrating tortuosity of brachiocephalic vessels as well as a band like density in the upper lung field. Right-sided moderate effusion blunts the costophrenic angle with the adjacent atelectasis and or infiltrate similar to 05/26/2024 chest radiograph. No left-sided effusion. No pneumothorax. IMPRESSION: Moderate right-sided effusion with adjacent atelectasis and or infiltrate similar to 05/26/2024 chest radiograph. THIS IS AN ELECTRONICALLY VERIFIED FINAL REPORT 07/14/2024 1:28 PM - Electronically signed by Gianluca LUCAS T: Report ID: [id number] Reading Location: [place] [address] Procedure Note Gianluca Casey MD - 07/14/2024 EXAM DESCRIPTION: XR CHEST PA LATERAL 2 VIEWS REASON FOR STUDY: Pt complains of SOB and cough x 1 month. No asthma,copd,cancer,heartdisease. No chest surgery. No smoking hx TECHNIQUE: Two views COMPARISON: 05/26/2024 FINDINGS: Heart size and vascularity appear normal. Aortic arch well-defined on the left. Right paratracheal soft tissue density persists. Please correlate withrecent chest CT of 06/09/2024 demonstrating tortuosity of brachiocephalic vesselsas well as a band like density in the upper lung field. Right-sided moderate effusion blunts the costophrenic angle with theadjacent atelectasis and or infiltrate similar to 05/26/2024 chest radiograph. No left-sided effusion. No pneumothorax. IMPRESSION: Moderate right-sided effusion with adjacent atelectasis and or infiltrate similar to 05/26/2024 chest radiograph. THIS IS AN ELECTRONICALLY VERIFIED FINAL REPORT 07/14/2024 1:28 PM - Electronically signed by Gianluca LUCAS T: Report ID: [id number] Reading Location: [place] [address] Rob Lisa MD IMG XR PROCEDURES Final Result from Last 3 Months Insurance MEDICARE [facility] Advance Directives For more information, please contact: [phone] Documents on File Type Date Recorded Patient Ironer Expl anation ADVANCE DIRECTIVE 04/07/2013 12:00 AM JEN SKELTON WILL Care Teams Esol Teacher Relationship Specialty Start Date End Date Jackson Blank MD PCP - General Internal Medicine 11/08/23
--- OUTSIDE RECORDS SUMMARY | 2024-09-29 01:00 | XMS_ITS | Referral Summary ---
Author Organization [facility] Address [address] [place] [address] Care Team Providers Care Motion Picture Equipment Machinist Name Role Phone Jackson Blank MD Primary Care Provider [phone] Source Comments [facility],non-owned Affiliates and Associated Physician Practices is amultiple site organization consisting of ambulatory clinics and hospital sitesin [place], [place], [place] and [place]. This disclosure is being madepursuant to the Care Everywhere program and may not contain all information available regarding this patient. Last updated 18.[facility] Allergies Active Allergy Reactions Criticality Noted Date Comments Sulfa Drugs 01/07/2010 Medications * Be aware that medications may not be up to date on this document. Alwaysverify current medications with the patient. Medication Sig Dispensed Refills Start Date End Date Status hydrocodone-acetaminop hen (VICODIN) 5-500 MG tablet Take 1-2 Tabs by mouth 4 times daily as needed for Pain. 20 0 01/07/2010 Active ondansetron (disintegrating) (ZOFRAN ODT) 8 MG tablet Take 1 Tab by mouth every 4 hours as needed for Nausea/Vomiting. 20 0 01/07/2010 Active Active Problems Problem Noted Date Diagnosed Date Kidney stone 01/07/2010 Social History Tobacco Use Types Packs/Day Years Used Date Smoking Tobacco: Never Assessed Sex and Gender Information Value Date Recorded Sex Assigned at Not on file Gender Identity Not on file Sexual Orientation Not on file Last Filed Vital Signs Vital Sign Reading Time Taken Comments Blood Pressure 132/59 01/07/2010 8:00 PM CDT Pulse 81 01/07/2010 12:57 PM CDT Temperature 36.7 C (98 F) 01/07/2010 12:57 PM CDT Respiratory Rate 19 01/07/2010 12:57 PM CDT Oxygen Saturation 94% 01/07/2010 8:00 PM CDT Inhaled Oxygen Concentration - - Weight 59 kg (130 lb) 01/07/2010 12:57 PM CDT Height 152.4 cm (5') 01/07/2010 12:57 PM CDT Body Mass Index 25.39 01/07/2010 12:57 PM CDT Plan of Treatment Not on file Care Teams Motion Picture Equipment Machinist Relationship Specialty Start Date End Date Jackson Blank MD [address] [place] [address] PCP - General 01/07/10
--- OUTSIDE RECORDS SUMMARY | 2024-09-29 01:00 | XMS_ITS | Data Portability ---
Author Organization [place] [facility], Main Office Address [address] [place] [address] Care Team Providers Care Rigging Up Worker Name Role Phone JACKSON BLANK Primary Care Provider [phone] JACKSON BLANK Referring Provider Assessment Encounter Date Assessment Date Assessment LastModified by Organization Details LastModified Time 07/04/2023 07/04/2023 Agreeable to starting slow and going up on the statin we talked everything from seeing a specialist to injectable medicines to get her cholesterol down follow-up for [email or web address] Not available 07/08/2023 22:00:56 08/15/2023 08/15/2023 HPI: Patient returns. She is here wanting another cortisone injection into the left knee. Last shot was in December of this year. It worked well up until about a month ago. Shots have always worked well for her and she wished to have another 1 today. Physical exam: 83-year-old female very alert pleasant. She appears younger than his stated age. She walks very well without limp or assistance. She has a mild effusion in the left knee. Ycxx-dh-kjumlkmy pain with patellofemoral grind. Mild medial joint line tenderness. No lateral joint line tenderness. No swelling in either lower extremity. After ChloraPrep was used on skin 20 mg Kenalog and 3 cc of 0.5% ropivacaine was injected into the left knee. 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 She got give her good relief from time to time. She will call when she feels she needs additional injection. 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 This is in the left knee. We talked about treatment options today we talked about gel shots versus cortisone she wanted to proceed with cortisone therefore under sterile conditions I injected the patient's left knee joint in the office today with 4 cc 0.5% Marcaine and 20 mg of Kenalog. Patient tolerated the procedure well. I have advised her we can do this again in 3 months if necessary we will see how she does she voiced understanding and agrees with the above plan she will call for any further problems difficulties or questions. [email or web address] Not available 03/17/2024 16:09:35 Plan of Treatment Reminders Order Date Submit Date Provider Last Modified By Organization Details Last Modified Time Details Appointments None recorded. Lab None recorded. Referral speech therapy referral 2022 023 [facility], [address] [place], [address], 4 16:07:39 Procedures injection/a spiration joint/bursa (PROC) - in office procedure, administere d by provider 2022 023 In-Office Order, Internal Use Only DO Not Attach Compendium DO Not Attach Compendium, Do Not Delete/merge, [id number] 3 12:20:04 injection/a spiration joint/bursa (PROC) 2023 024 [email or web address] In-Office Order, Internal Use Only DO Not Attach Compendium DO Not Attach Compendium, Do Not Delete/merge, [id number] 4 15:35:35 Surgeries None recorded. Imaging XR, knee 2022 023 [email or web address] [facility], [facility], [place], [address], 3 17:17:14 Medication Orders Kenalog 10 mg/mL suspension for injection 2022 023 [id number] [facility] #[id number], [address], [place], [place], [id number], 4 12:57:36 ropivacaine (PF) 5 mg/mL (0.5 %) injection solution 2022 023 [email or web address] [facility] #[id number], [address], [place], [place], [id number], 3 17:17:14 Marcaine (PF) 0.5 % (5 mg/mL) injection solution 2023 024 [email or web address] [facility] #[id number], [address], [id number], 4 16:10:57 Kenalog 10 mg/mL suspension for injection 2023 024 [email or web address] [facility] #61193, [address] [place], [id number], 4 16:10:57 Medrol (Jesse) 4 mg tablets in a dose pack 2023 024 HARSHIL [facility] #35278, [address], [place], [place], [id number], 4 14:59:18 Patient TargetsNo targets recorded. 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 The infection is associated with numerous neurologic sequela Not available 08/15/2023 16:49:14 04/09/2024 [id number] The previous chest CT was normal. She has been to speech therapy. Not available 04/09/2024 14:58:32 Reason for Referral Referring Physician: Mohit schuster, Otolaryngology, Encounter Date: 08/15/2023 Results Created Date Observation Date Name Description Value Unit Range Abnormal Flag Note LastModifiedBy Organization Detail LastModifiedTime 06/12/2006/12/2023 CBC/C OMPLE TE BLD COUNT W/DIF F white blood cells 6.8 x10'3 /uL 4.2-10 .8 Not Available [facility] (Lab) [address] [place], [address], 06/12/2023 16:18:52 06/12/2006/12/2023 CBC/C OMPLE TE BLD COUNT W/DIF F red blood cells 4.69 x10'6 /uL 3.80-5 .20 Not Available [facility] (Lab) [address] [place], [address], 06/12/2023 16:18:52 06/12/2006/12/2023 CBC/C OMPLE TE BLD COUNT W/DIF F hemoglobin 14.6 g/dL 12.0-1 5.6 Not Available [facility] (Lab) [address] [place], [address], 06/12/2023 16:18:52 06/12/2006/12/2023 CBC/C OMPLE TE BLD COUNT W/DIF F hematocrit 45.0 % 35.7-4 5.7 Not Available [facility] (Lab) [address] [place], [address], 06/12/2023 16:18:52 06/12/2006/12/2023 CBC/C OMPLE TE BLD COUNT W/DIF F mean red cell volume 95.9 fL 82.0-9 9.0 Not Available [facility] (Lab) [address] [place], [address], 06/12/2023 16:18:52 06/12/2006/12/2023 CBC/C OMPLE TE BLD COUNT W/DIF F mean red cell hemoglobin 31.1 pg 27.0-3 3.0 Not Available [facility] (Lab) [address] [place], [address], 06/12/2023 16:18:52 06/12/2006/12/2023 CBC/C OMPLE TE BLD COUNT W/DIF F mean RBC HGB concentratio n 32.4 g/dL 31.0-3 6.0 Not Available [facility] (Lab) [address] [place], [address], 06/12/2023 16:18:52 06/12/2006/12/2023 CBC/C OMPLE TE BLD COUNT W/DIF F red cell distribution width 12.6 % 11.8-1 5.5 Not Available [facility] (Lab) [address] [place], [address], 06/12/2023 16:18:52 06/12/2006/12/2023 CBC/C OMPLE TE BLD COUNT W/DIF F platelets 285 x10'3 /uL 150-40 0 Not Available [facility] (Lab) [address] [place], [address], 06/12/2023 16:18:52 06/12/2006/12/2023 CBC/C OMPLE TE BLD COUNT W/DIF F mean platelet volume 10.5 fL 9.0-12 .4 Not Available [facility] (Lab) [address] [place], [address], 06/12/2023 16:18:52 06/12/2006/12/2023 CBC/C OMPLE TE BLD COUNT W/DIF F neutrophils 66.8 % 39.0-7 2.0 Not Available [facility] (Lab) [address] [place], [address], 06/12/2023 16:18:52 06/12/2006/12/2023 CBC/C OMPLE TE BLD COUNT W/DIF F lymphocytes 22.2 % 16.0-4 7.0 Not Available [facility] (Lab) [address] [place], [address], 06/12/2023 16:18:52 06/12/2006/12/2023 CBC/C OMPLE TE BLD COUNT W/DIF F monocytes 7.4 % 5.0-12 .0 Not Available [facility] (Lab) [address] [place], [address], 06/12/2023 16:18:52 06/12/2006/12/2023 CBC/C OMPLE TE BLD COUNT W/DIF F eosinophils 2.4 % 1.0-7. 0 Not Available [facility] (Lab) [address] [place], [address], 06/12/2023 16:18:52 06/12/2006/12/2023 CBC/C OMPLE TE BLD COUNT W/DIF F basophils 0.9 % 0.0-2. 0 Not Available [facility] (Lab) [address] [place], [address], 06/12/2023 16:18:52 06/12/2006/12/2023 CBC/C OMPLE TE BLD COUNT W/DIF F immature granulocytes 0.3 % 0.00-0 .50 Not Available [facility] (Lab) [address] [place], [address], 06/12/2023 16:18:52 06/12/2006/12/2023 CBC/C OMPLE TE BLD COUNT W/DIF F neutrophils, absolute count 4.54 x10'3 /uL 1.5-8. 0 Not Available [facility] (Lab) [address] [place], [address], 06/12/2023 16:18:52 06/12/20 23 06/12/2023 CBC/C OMPLE TE BLD COUNT W/DIF F lymphocytes, absolute count 1.51 x10'3 /uL 1.07-3 .43 Not Available [facility] (Lab) [address] [place], [address], 06/12/2023 16:18:52 06/12/2006/12/2023 CBC/C OMPLE TE BLD COUNT W/DIF F monocytes, absolute count 0.50 x10'3 /uL 0.29-0 .99 Not Available [facility] (Lab) [address] [place], [address], 06/12/2023 16:18:52 06/12/2006/12/2023 CBC/C OMPLE TE BLD COUNT W/DIF F eosinophils, absolute count 0.16 x10'3 /uL 0.02-0 .53 Not Available [facility] (Lab) [address] [place], [address], 06/12/2023 16:18:52 06/12/2006/12/2023 CBC/C OMPLE TE BLD COUNT W/DIF F basophils, absolute count 0.06 x10'3 /uL 0.01-0 .08 Not Available [facility] (Lab) [address] [place], [address], 06/12/2023 16:18:52 06/12/2006/12/2023 CBC/C OMPLE TE BLD COUNT W/DIF F immature granulocytes ,absolute 0.02 x10'3 /uL 0.00-0 .05 Not Available [facility] (Lab) [address] [place], [address], 06/12/2023 16:18:52 06/12/20 23 06/12/2023 CBC/C OMPLE TE BLD COUNT W/DIF F nucleated red blood cells 0.0 % -0 Not Available [facility] (Lab) [address] [place], [address], 06/12/2023 16:18:52 06/12/2006/12/2023 CBC/C OMPLE TE BLD COUNT W/DIF F NRBC# 0.00 x10'3 /uL Not Available [facility] (Lab) [address] [place], [address], 06/12/2023 16:18:52 06/12/2006/12/2023 COMPR EHENS MARU METAB OLIC PANEL sodium 137 mmol/ L 137-14 5 Not Available [facility] (Lab) [address] [place], [address], 06/12/2023 16:55:57 06/12/2006/12/2023 COMPR EHENS MARU METAB OLIC PANEL potassium 4.1 mmol/ L 3.5-5. 1 Not Available [facility] (Lab) [address] [place], [address], 06/12/2023 16:55:57 06/12/2006/12/2023 COMPR EHENS MARU METAB OLIC PANEL chloride 103 mmol/ L 98-107 Not Available [facility] (Lab) [address] [place], [address], 06/12/2023 16:55:57 06/12/2006/12/2023 COMPR EHENS MARU METAB OLIC PANEL carbon dioxide 28 mmol/ L 22-30 Not Available [facility] (Lab) [address] [place], [address], 06/12/2023 16:55:57 06/12/2006/12/2023 COMPR EHENS MARU METAB OLIC PANEL anion gap 10.1 mmol/ L 14-22 low Not Available [facility] (Lab) [address] [place], [address], 06/12/2023 16:55:57 06/12/2006/12/2023 COMPR EHENS MARU METAB OLIC PANEL glucose 95 mg/dL 70-99 Not Available [facility] (Lab) [address] [place], [address], 06/12/2023 16:55:57 06/12/2006/12/2023 COMPR EHENS MARU METAB OLIC PANEL BUN 13 mg/dL 8-19 Not Available [facility] (Lab) [address] [place], [address], 06/12/2023 16:55:57 06/12/2006/12/2023 COMPR EHENS MARU METAB OLIC PANEL creatinine 0.77 mg/dL 0.66-1 .25 Not Available [facility] (Lab) [address] [place], [address], 06/12/2023 16:55:57 06/12/2006/12/2023 COMPR EHENS MARU METAB OLIC PANEL GFR >60 Refer ence Range : [place] GFR Healt hy Adult : >60 mL/mi n/1.7 3 m2 Chron ic Kidne y Disea se: 15-60 mL/mi n/1.7 3 m2 Kidne y Failu re: <15/m L/min /1.73 m2 www.n iddk. nih.g ov The MDRD study equat ion has not been valid ated in child yarelis <18 years of age; pregn ant women ; the elder ly >85 years of age; or in some racia l or ethni c subgr oups, such as Hispa nics. Outsi de the valid ated gus eters , estim ated GFR is less accur ate, requi ring clini ricardo judgm ent on a case- by-ca se basis . Clini ricardo inter preta tion for other races and ages must be made by the clini noemi. The MDRD study equat ion has not been valid ated for the evalu ation of serum creat inine relat ed to nutri yohan l statu s or medic ation usage . For perso ns <18 years of age, a pedia tric GFR calcu lator is avail able on the [facility] websi te: [email or web address] :[email or web address] [email or web address] qi/gf r_cal culat or Not Available [facility] (Lab) [address] [place], [address], 06/12/2023 16:55:57 06/12/2006/12/2023 COMPR EHENS MARU METAB OLIC PANEL alkaline phosphatase 39 U/L 38-126 Not Available [facility] (Lab) [address] [place], [address], 06/12/2023 16:55:57 06/12/2006/12/2023 COMPR EHENS MARU METAB OLIC PANEL alanine aminotransfe rase 24 U/L 0-35 Not Available [facility] (Lab) [address] [place], [address], 06/12/2023 16:55:57 06/12/2006/12/2023 COMPR EHENS MARU METAB OLIC PANEL aspartate aminotransfe rase 35 U/L 15-37 Not Available [facility] (Lab) [address] [place], [address], 06/12/2023 16:55:57 06/12/2006/12/2023 COMPR EHENS MARU METAB OLIC PANEL bilirubin, total 0.50 mg/dL 0.20-1 .30 Not Available [facility] (Lab) [address] [place], [address], 06/12/2023 16:55:57 06/12/2006/12/2023 COMPR EHENS MARU METAB OLIC PANEL calcium 9.8 mg/dL 8.4-10 .2 Not Available [facility] (Lab) [address] [place], [address], 06/12/2023 16:55:57 06/12/2006/12/2023 COMPR EHENS MARU METAB OLIC PANEL total protein 7.5 g/dL 6.3-8. 2 Not Available [facility] (Lab) [address] [place], [address], 06/12/2023 16:55:57 06/12/20 23 06/12/2023 COMPR EHENS MARU METAB OLIC PANEL albumin 4.1 g/dL 3.0-4. 4 Not Available [facility] (Lab) [address] [place], [address], 06/12/2023 16:55:57 06/12/2006/12/2023 COMPR EHENS MARU METAB OLIC PANEL globulin 3.4 g/dL 2.6-4. 2 Not Available [facility] (Lab) [address] [place], [address], 06/12/2023 16:55:57 06/12/2006/12/2023 COMPR EHENS MARU METAB OLIC PANEL A/G ratio 1.2 ratio 1.0-2. 0 Not Available [facility] (Lab) [address] [place], [address], 06/12/2023 16:55:57 06/12/2006/12/2023 LIPID PANEL cholesterol 340 mg/dL 140-19 9 high NIH WARD NSUS RECOM MENDA TION FOR SAMMI STERO L: ADULT CHILD LOW RISK: <200 <170 BORDE RLINE : <200- 239 ----- HIGH RISK: >240 >200 Not Available [facility] (Lab) [address] [place], [address], 06/12/2023 16:57:08 06/12/2006/12/2023 LIPID PANEL triglyceride s 161 mg/dL 0-150 high NIH WARD NSUS REPOR T RECOM MENDA TION FOR TRIGL YCERI ALKSHMI: ADULT CHILD LOW RISK: <150 ----- BODER LINE: 150-1 99 ----- HIGH RISK: >200 ----- Not Available [facility] (Lab) [address] [place], [address], 06/12/2023 16:57:08 06/12/2006/12/2023 LIPID PANEL HDL cholesterol 89 mg/dL 40- Not Available [facility] (Lab) [address] [place], [address], 06/12/2023 16:57:08 06/12/2006/12/2023 LIPID PANEL LDL cholesterol, calculated 219 mg/dL 0-130 high NIH WARD NSUS REPOR T RECOM MENDA TIONS FOR LDL: ADULT CHILD LOW RISK <130 <110 (OPTI MAL LDL) <100 ----- TIMMYDE RLINE : 130-1 59 ----- HIGH RISK: >160 >130 A TRIGL YCERI DE RESUL T >400 INVAL IDATE S THE CALCU LATIO N FOR LDL FRACT IONAT ION - THE LDL RESUL T WILL NOT BE REPOR PIERRE. Not Available [facility] (Lab) [address] [place], [address], 06/12/2023 16:57:08 06/12/2006/12/2023 BNP/B -NATR IURET IC PEPTI DE BNP 104 pg/mL 4-125 Not Available [facility] (Lab) [address] [place], [address], 06/12/2023 17:25:06 06/03/2006/03/2023 XR, abdom en No observ ation record ed. [email or web address] [address], [address], 06/17/2023 15:48:12 06/03/2006/03/2023 CT, abdom en + pelvi s, w/o contr ast No observ ation record ed. [email or web address] [address], [address], 06/17/2023 15:48:38 06/25/20 23 06/25/2023 MAMMO , scree rosmery, digit al, bilat eral [facility] [address] [facility] [address], [place] [address] Patien t Name: DAKSHA MATA Access ion #: [id number] Sex: F : 1939 6 Dictat ed By: Luiza Maynard Attend ing Physic denis: LOBITO BLANK Orderi ng Physic denis: LOBITO BLANK Exam Date: 2022 14:04 PM Exam Name: MG SCRN BREAST CLAUDIA BILAT Admitt ing Diagno sis(es ): SCREEN ING MAMMOG JAYLIN WITH TOMOSY NTHESI S: REASON FOR EXAM: routin e mammog jaylin COMPAR TORIE: None TECHNI QUE: Bilate ral CC and MLO views obtain ed. Images were obtain ed using a Digita l Tomosy nthesi s Unit. Standa rd 2D and 3D Tomosy nthesi s images were review ed. FINDIN GS: BREAST COMPOS ITION: The bilate ral breast s are hetero geneou sly dense, which may obscur e small masses . In the right breast , no asymme trical parenc hymal patter n, obdulia ectura l distor tion, pleomo rphic microc alcifi cation s or masses . In the left breast , no asymme trical parenc hymal patter n, obdulia ectura l distor tion, pleomo rphic microc alcifi cation s or masses . There is a postsu rgical scar in the left breast . IMPRES ROSITA: No findin gs of malign amada. Recomm end annual mammog jaylin. BIRADS : 2 - Benign Electr onical ly Signed by: Luiza Maynard at 2022 15:42: 33 PM Page 1 [facility] (Imaging) [address], [place], [address], 08/14/2023 14:34:01 08/15/20 23 XR, knee No observ ation record ed. [email or web address] [facility] [address], [place], [address], 08/15/2023 13:47:11 10/17/19 24 10/17/2023 XR, chest , 2 view [facility] [address] [place] [address] [phone] Patien t Name: DAKSHA MATA Access ion #: [id number] Sex: F : 1939 6 Dictat ed By: Guero Finn Attend ing Physic denis: LOBITO BLANK Orderi Physic denis: LOBITO BLANK Exam Date: 2023 10:54 AM Exam Name: XR CHEST 2V Admitt ing Diagno sis(es ): XR CHEST 2V CLINIC AL HISTOR Y: pneum onia COMPAR TORIE: 4 TECHNI QUE: Fronta l and latera l view of the chest was obtain ed FINDIN GS: Lines and Tubes: None Lungs: Rt base consol idatio n. Pleura : Modera te rt effusi on.. No pneumo thorax . Cardio medias tinal contou rs: Unrema rkable Bones: No acute osseou s abnorm ality. IMPRES ROSITA: Rt base infilt rate and effusi on has improv ed Electr onical ly Signed by: Guero Finn at 2023 11:24: 44 AM Page 1 [email or web address] [facility] ([facility]) [address] [place], [address], 11/28/2023 14:00:26 03/09/20 24 03/09/2024 US, abdom en, compl ete [facility] [address] [place] [address] [phone] Patien t Name: DAKSHA MATA Access ion #: [id number] Sex: F : 1939 8 Dictat ed By: Luiza Maynard Attend ing Physic denis: LOBITO BLANK Orderi Physic denis: LOBITO BLANK Exam Date: 2023 09:32 AM Exam Name: US ABDOME N MULTIP LE ORGANS Admitt ing Diagno sis(es ): INDICA TION: Pain. TECHNI QUE: Multip le real-t tyrel sonogr aphic images of the abdome n were obtain ed. COMPAR TORIE: US ABDOME N MULTIP LE ORGANS on 2021 FINDIN GS: The liver is homoge nous in echoge nicity . The liver measur es 13 cm. No intrah epatic biliar y ductal dilata tion is noted. The gallbl adder is surgic ally absent . The right kidney measur es 8.8cm. There is a right parape lvic cyst measur ing 2.4 cm. No hydron ephros is. The left kidney measur es 9.2cm. No hydron ephros is. The spleen measur es 9.9cm, within normal limits . The echoge nicity is within normal limits . The pancre as is not well visual ized due to obscur ation from bowel gas. The visual ized portio ns of the IVC and aorta are grossl y unrema rkable . IMPRES ROSITA: 1. Status post cholec ystect francesca. Right parape lvic cyst measur ing 2.4 cm. Electr onical ly Signed by: Luiza Maynard at 2023 10:43: 03 AM Page 1 [email or web address] [facility] (Imaging) [address] [place], [address], 03/25/2024 09:45:34 06/09/20 24 06/09/2024 CT, chest + abdom en + pelvi s, w/ contr ast [facility] [address] [place] [address] [phone] Patien t Name: DAKSHA MATA Access ion #: [id number] Sex: F : 1939 2 Dictat ed By: Lobito linares Attend ing Physic denis: LOBITO BLANK Orderi ng Physic denis: LOBITO BLANK Exam Date: 2023 08:27 AM Exam Name: CT CHEST ABDOME N PELVIS W Admitt ing Diagno sis(es ): CLINIC AL INFORM ATION: 84 years old, Female ; pleura l effusi on. TECHNI QUE: Axial CT images of the chest, abdome n, and pelvis were obtain ed after the uneven tful admini strati on of 100 mL of isovue [address] Patien t also ingest ed oral contra st prior to the examin ation. Rosa l and sagitt al reform atted images were obtain ed, review ed, and stored . All CT scans at this medica l facili ty are perfor med using dose modula tion techni ques as approp riate to a perfor med exam includ ing the follow ing: Automa pierre exposu re contro l was utiliz ed; adjust ment of the MA and/or KV accord ing to patien t size; and use of iterat maru recons tructi on techni que. CTDIvo l = 32 x 1.5, 2 x 0.75 mGy DLP = 1072.1 3 mGy-cm COMPAR TORIE: CTA chest dated 2023. FINDIN GS: CT CHEST: Aorta: No aneury sm or dissec tion. Modera te calcif ied plaque . Cardia c: Mild cardio megaly . Dense rosa ry artery calcif icatio n. Medias tinum/ amanda: Mildly promin ent subcen timete r medias tinal lymph nodes. Lungs: Respir atory motion artifa ct limits evalua tion. Small right pleura l fluid collec tion, with some mild enhanc ement along portio ns of the collec tion. There are some nodula r areas of enhanc ement along the pleura l surfac e, measur ing up to 1 cm along the acid crane operator ior pleura l surfac e ( series 2, image 161). Right middle lobe pulmon cheko nodule measur es up to 6.5 mm in diamet er ( series 3, image 46), previo usly 6 mm. Right upper lobe pulmon cheko nodule measur es 6 mm ( image 38), previo usly 4.5 mm. 3.5 mm nodule in the Page 1 [facility] [address] [facility] [place] [address] Patien t Name: DAKSHA MATA Access ion #: [id number] Sex: F : 1939 2 Dictat ed By: Lobito linares Attend ing Physic denis: VICTORINA DANGELO Physic denis: LOBITO BLANK Exam Date: 2023 08:27 AM Exam Name: CT CHEST ABDOME N PELVIS W Admitt ing Diagno sis(es ): acid crane operator ior left lower lobe superi or segmen t ( image 46), new compar ed to the prior exam. A previo usly seen nodule in the left lower lobe measur ing up to 6 mm is not visual ized on the curren t exam. There are also scatte red areas of ground -glass opacit y. Pulmon cheko arteri es: No gross abnorm ality. Chest wall: No mass or other abnorm ality. Bones: No fractu re or suspic ious intrao sseous lesion s. CT ABDOME N/PELV IS: Liver: Unrema rkable . No abnorm al densit y or focal lesion . Biliar y: Cholec ystect francesca. Spleen : Unrema rkable . Pancre as: Unrema rkable . No inflam matory change s, ductal dilata tion, or mass identi fied. Adrena l glands : Unrema rkable . No mass. Kidney s: No hydron ephros is. Bilate ral renal cysts. Aorta: Modera te athero sclero tic calcif icatio n. No abdomi nal aortic aneury sm. Retrop eriton eum: No mass or lympha denopa thy. Bowel/ mesent flavia: No small bowel obstru ction. No free air or free fluid. Append ix is visual ized and appear s unrema rkable . Pelvic organs : Grossl y unrema rkable . Bladde r: Unrema rkable . No mass. Abdomi nal wall: No mass or hernia . Bones: No fractu re or focal intrao sseous lesion . IMPRES ROSITA: 1. Small right pleura l fluid collec tion with areas of enhanc ement and enhanc ing nodule s, suspec pierre malign ant effusi on. 2. Pulmon cheko nodule s as descri bed above, some are slight ly larger compar ed to the prior CTA chest. A nodule in the left lower lobe seen previo usly is not visual ized. Respir atory motion artifa ct limits evalua tion. Page 2 [facility] [address] [place] [address] Patien t Name: DAKSHA MATA Access ion #: [id number] Sex: F : 1939 2 Dictat ed By: Lobito linares Attend ing Physic denis: VICTORINA DANGELO [facility] Physic denis: LOBITO BLANK Exam Date: 2023 08:27 AM Exam Name: CT CHEST ABDOME N PELVIS W Admitt ing Diagno sis(es ): 3. Indete rminat e medias tinal lymph nodes, predom inantl y subcen timete r in short axis dimens ion. 4. Cardio megaly and rosa ry artery calcif icatio n . 5. Additi onal nonacu te findin gs as detail ed above. Electr onical ly Signed by: Lobito linares at 2023 07:38: 09 AM Page 3 [email or web address] [facility] (Imaging) [address] [place], [address], 06/09/2024 14:00:15 09/22/19 25 09/22/2024 CT, abdom en + pelvi s, w/ contr ast [facility] [address] [place] [address] [phone] Patien t Name: DAKSHA MATA Access ion #: [id number] Sex: F : 1939 0 Dictat ed By: Thierry sandoval Attend ing Physic denis: LOBITO BLANK Orderi ng Physic denis: LOBITO BLANK Exam Date: 2024 13:49 PM Exam Name: CT ABDOME N PELVIS W Admitt ing Diagno sis(es ): EXAM: CT ABDOME N PELVIS W HISTOR Y: abd pain 84-yea r-old female with abdomi nal pain, diarrh ea, weight loss, 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 COMPAR TORIE: CT CHEST ABDOME N PELVIS W on DOS: TECHNI QUE: Helica l CT images of the abdome n and pelvis were perfor med with 100 mL Isovue [address] Sagitt al and rosa l reform atted images were obtain ed. This CT exam was perfor med using 1 or more of the follow ing dose reduct ion techni ques: Automa pierre exposu re contro l, adjust ment of the mA and/or kv accord ing to patien t size, or the use of iterat maru recons tructi on techni ques. Radiat ion Dose Inform ation: CT Dose: CTDI volume is 8.6 mGy. Dose-l ength produc t is 438.5 mGy*cm FINDIN GS: CT abdome n: There is an 11 mm right middle lobe noncal cified pulmon cheko nodule (image 2, series 201). There is a 5 mm left lower lobe noncal cified pulmon cheko nodule (image 7, series 201). There is irregu lar hetero geneou s opacit y in the right lung base predom inatin g periph erally , increa sed versus prior chest CT. The heart is mildly enlarg ed. There are rosa ry artery calcif icatio ns. There is stable mild right hydron ephros is withou t hydrou reter or visual izatio n of obstru cting calcul i. There is a left renal inferi or pole parape lvic cyst. There is a left renal inferi or pole simple cortic al cyst. The liver, pancre as, and adrena l glands are unrema rkable . The gallbl adder is surgic ally absent . There are calcif ied granul omas in the spleen . No abdomi nal aortic Page 1 [facility] [address] [place] [address] [phone] Patien t Name: DAKSHA MATA Access ion #: [id number] Sex: F : 1939 0 Dictat ed By: Thierry sandoval Attend ing Physic denis: VICTORINA DANGELO [facility] Physic denis: LOBITO BLANK Exam Date: 2024 13:49 PM Exam Name: CT ABDOME N PELVIS W Admitt ing Diagno sis(es ): aneury sm or dissec tion. There are athero sclero tic calcif icatio ns of the abdomi nal aorta imaged branch es. CT pelvis : No abnorm al bowel dilata tion, free air, or free fluid. The append ix and urinar y bladde r are unrema rkable . There is atroph y of the bilate ral gluteu s minimu s muscle s. There is modera te to severe lumbar degene rative disc diseas e and facet arthro latha. There is modera te osteoa rthrit is of the bilate ral hips. IMPRES ROSITA: 1. Increa sed hetero geneou sly enhanc ing irregu lar pleura l-base d soft tissue in the right lower chest, possib ly due to malign amada such as mesoth elioma . Additi onally , there are noncal cified pulmon cheko nodule s in the bilate ral lung bases. The lungs are not fully imaged here. I have been given no histor y of specif ic cancer diagno sis for this patien t. Please correl ate with any known cancer histor y for this patien t. 2. Cardio megaly and rosa ry artery diseas e. 3. Postop erativ e change s of cholec ystect francesca. 4. No eviden ce of bowel obstru ction, acute append icitis , or other acute proces s in the abdome n or pelvis . Electr onical ly Signed by: Thierry sandoval at 2024 14:10: 50 PM Page 2 INTERFACE [facility] ([facility]) [address] [place], [address], 09/22/2024 15:13:10 Result Notes None recorded. Problems Name Problem SNOMED Code Status Onset Date Resolution Date Notes Provider Name and Address Organization Details Recorded Time Pain of left knee joint 6102244598767 07 Active 2022 Not Available [facility] 4 12:57:38 Hyperchole sterolemia 76004670 Active Not Available [facility] 4 12:57:37 Chronic hoarseness 5479834093065 Active 2021 Not Available [facility] 4 12:57:37 Acquired trigger finger 8272369 Active Not Available [facility] 4 12:57:37 Radiothera py follow-up 959682455 Active Not Available [facility] 4 12:57:38 Abdominal pain 66262252 Active 2021 Not Available [facility] 4 12:57:38 Pain 07625534 Active Not Available [facility] 4 12:57:38 Gastroesop hageal reflux disease 155548622 Active Not Available [facility] 4 12:57:38 Pure hyperchole sterolemia 666366543 Active Not Available [facility] 4 12:57:38 Shoulder joint pain 870600628 Active Not Available [facility] 4 12:57:38 Current tear of lateral cartilage AND/OR meniscus of knee Active Not Available [facility] 4 12:57:38 Knee pain Active Not Available [facility] 4 12:57:38 Pain in coccyx 38857566 Active Not Available [facility] 4 12:57:38 Acute pharyngiti s 143310179 Active 2021 Not Available [facility] 4 12:57:38 Osteoarthr itis 361525820 Active Not Available [facility] 4 12:57:38 Vertigo 216861122 Active Not Available [facility] 4 12:57:38 Acute urinary tract infection 490387070 Active 2021 Not Available [facility] 4 12:57:38 Pain of right knee joint 5757927451886 00 Active 2021 Not Available [facility] 4 12:57:38 Anxiety 49041885 Active 2018 Not Available [facility] 4 12:57:38 Dysuria 21906309 Active Not Available [facility] 4 12:57:38 Upper respirator y infection 58719581 Active 2021 Not Available [facility] 4 12:57:38 Hyperlipid emia 78890280 Active 2021 Not Available [facility] 4 12:57:38 Essential hypertensi on 61714187 Active Not Available [facility] 4 12:57:38 Allergic rhinitis 76313986 Active 2021 Not Available [facility] 4 12:57:38 Osteoporos is 91846006 Active Not Available [facility] 4 12:57:38 Brachial neuritis 00423724 Active Not Available [facility] 4 12:57:38 Posterior rhinorrhea 60888664 Active 2021 Not Available [facility] 4 12:57:38 Paralysis of right vocal cord 874862662 Active 2021 Not Available [facility] 4 12:57:38 Neck pain 65766099 Active 2021 Not Available [facility] 4 12:57:38 COVID-19 101059424 Active 2021 Not Available [facility] 4 12:57:38 Fatigue 70511490 Active Not Available [facility] 4 12:57:38 Chronic rhinitis 26940618 Active 2021 Not Available [facility] 4 12:57:38 Pain in limb 75659306 Active Not Available [facility] 4 12:57:38 Skin lesion 47029146 Active Not Available [facility] 4 12:57:38 Subcutaneo us nodule 26908183 Active Not Available [facility] 4 12:57:38 Sinusitis 77846344 Active 2022 Not Available [facility] 4 12:57:38 Sore throat 502648269 Active 2022 Not Available [facility] 4 12:57:38 Cough 46675312 Active 2022 Not Available [facility] 4 12:57:38 Pleural effusion 17931957 Active 2022 Not Available [facility] 4 12:57:38 Osteoarthr itis of left knee joint 2779534981079 09 Active 2022 Not Available [facility] 4 12:57:38 Dysphonia 55893139 Active 2022 Not Available [facility] 4 12:57:38 Dysphagia 09942655 Active 2022 Not Available [facility] 4 12:57:38 Notes:12-11-2017 States had e ye exam Sep 2017 Problem Notes None recorded. Procedures Surgical History Date Name Laterality Status Provider Name and Address Organization Details Recorded Time 04/28/20 19 arthroplasty of knee completed Not Available [facility] 10/17/2022 02:51:32 12/20/19 18 Most Recent Bone Density completed Not Available [facility] 10/17/2022 02:51:28 10/28/19 16 arthroscopy of knee completed Not Available [facility] 10/17/2022 02:51:32 11/25/19 15 Date of Last Colonoscopy completed Not Available [facility] 10/17/2022 02:51:28 07/02/20 14 Drain/inj joint/bursa w/o us completed Not Available [facility] 10/17/2022 02:51:32 07/02/20 14 Carpal tunnel surgery completed Not Available [facility] 10/17/2022 02:51:32 Cataract Surgery completed Not Available [facility] 10/17/2022 02:51:32 Imaging Results Imaging Date Name Status LastModified by Organiz ation Details LastModified Time 06/03/2023 XR, abdomen completed [email or web address] [facility] [address], [place], [address], 06/17/2023 15:48:12 06/03/2023 CT, abdomen + pelvis, w/o contrast completed [email or web address], [place], [address], 06/17/2023 15:48:38 06/25/2023 MAMMO, screening, digital, bilateral completed cyahl [facility] ([facility]) [address] [place], [address], 08/14/2023 14:34:01 08/15/2023 XR, knee completed [email or web address] [address], [place], [address], 08/15/2023 13:47:11 10/17/2023 XR, chest, 2 view completed [address] (Imaging) [address] [place], [address], 11/28/2023 14:00:26 03/09/2024 US, abdomen, complete completed [address] (Imaging) [address] [place], [address], 03/25/2024 09:45:34 06/09/2024 CT, chest + abdomen + pelvis, w/ contrast completed [address] (Imaging) [address] [place], [address], 06/09/2024 14:00:15 09/22/2024 CT, abdomen + pelvis, w/ contrast active INTERFACE [facility] [address] [place], [address], 09/22/2024 15:13:10 Procedure Notes None recorded. Medical Equipment None Reported. Allergies Allergen ID Allergen Name Allergen Category Reaction Reaction Severity Criticality Documentation Date Start Date Code Code System Note Provider Name and Address Organization Details Recorded Time 5133 Substance with sulfonami de structure and antibacte rial mechanism of action (substanc e) medicatio n angioedem a eye swelling Not available Not available Not available 10/17/2022 [id number] SNOMED Not Available [facility] 3 03:07:03 Medications Name Sig Start Date Stop Date Status Note LastModified by Organization Details LastModified Time losartan 50 mg tablet active Not Available Not Available Not Available cyclobenz aprine 10 mg tablet 04/28 completed Not Available Not Available Not Available amoxicill in 500 mg capsule TAKE 4 CAPSULES BY MOUTH 1 HOUR BEFORE DENTAL APPOINTM ENT 06/12 completed Not Available Not Available Not Available latanopro st 0.005 % eye drops INSTILL 1 DROP ONTO BOTH EYES QHS active Not Available Not Available No t Available atorvasta tin 40 mg tablet TK 1 T PO QD 04/28 completed Not Available Not Available Not Available atorvasta tin 80 mg tablet Take 1 tablet every day by oral route. 03/24 completed Not Available Not Available Not Available prednison e 10 mg tablet take [id number], [id number] 01/16 completed Not Available Not Available Not Available doxycycli ne hyclate 100 mg capsule TK 1 C PO BID FOR 7 DAYS active Not Available Not Available No t Available cefuroxim e axetil 250 mg tablet 04/10 completed Not Available Not Available Not Available atorvasta tin 20 mg tablet one daily active Not Available Not Available No t Available polyethyl cherry glycol 3350 17 gram oral powder packet MIX 1 PACKET WITH 8 OUNCES OF LIQUID AND RINK ONCE DAILY 04/28 completed Not Available Not Available Not Available atorvasta tin 10 mg tablet TAKE 1 TABLET BY MOUTH EVERY DAY active Not Available Not Available No t Available Pneumovax -23 25 mcg/0.5 mL injection solution active Not Available Not Available Not Available lisinopri l 20 mg-hydroc hlorothia zide 12.5 mg tablet TAKE 1 TABLET BY MOUTH EVERY DAY active Not Available Not Available No t Available azithromy ozzie 250 mg tablet TAKE 2 TABLETS BY MOUTH FOR 1 DAY THEN TAKE 1 TABLET BY MOUTH DAILY FOR 4 DAYS active Not Available Not Available No t Available ofloxacin 0.3 % eye drops 03/27 completed Not Available Not Available Not Available tizanidin e 4 mg tablet TAKE 1 TABLET BY MOUTH EVERY 6 HOURS active Not Available Not Available No t Available benzonata te 200 mg capsule 01/16 completed Not Available Not Available Not Available clarithro mycin 500 mg tablet 04/10 completed Not Available Not Available Not Available hydrocodo ne 5 mg-acetam inophen 325 mg tablet 12/11 completed Not Available Not Available Not Available brinzolam sourav 1 % eye drops,sidra pension SHAKE LIQUID AND INSTILL 1 DROP IN BOTH EYES TWICE DAILY active Not Available Not Available No t Available ondansetr on HCl 4 mg tablet TK 1 T PO QID 05/05 completed Not Available Not Available Not Available prednison e 20 mg tablet TAKE 2 TABLETS BY MOUTH EVERY DAY WITH FOOD FOR 5 DAYS active Not Available Not Available No t Available spironola ctone 100 mg tablet 04/28 completed Not Available Not Available Not Available potassium chloride ER 10 mEq tablet,ex tended release TAKE 1 TABLET BY MOUTH EVERY DAY active Not Available Not Available No t Available acetamino phen 300 mg-codein e 30 mg tablet 11/17 completed Not Available Not Available Not Available ciproflox acin 250 mg tablet TK 1 T PO BID. USE WHEN SYMPTOMS OF UTI 01/16 completed Not Available Not Available Not Available trimethop rim 100 mg tablet TAKE 1 TABLET BY MOUTH TWICE DAILY 06/12 completed Not Available Not Available Not Available ciproflox acin 500 mg tablet TAKE 1 TABLET BY MOUTH TWICE DAILY 06/12 completed Not Available Not Available Not Available tramadol 50 mg tablet TAKE 1 TABLET BY MOUTH THREE TIMES DAILY NEEDED active Not Available Not Available No t Available amoxicill in 500 mg tablet active Not Available Not Available Not Available pantopraz ole 20 mg tablet,de layed release TAKE 1 TABLET BY MOUTH EVERY DAY 06/12 completed Not Available Not Available Not Available ketorolac 0.5 % eye drops 03/27 completed Not Available Not Available Not Available oxycodone -acetamin ophen 5 mg-325 mg tablet TK 1 T PO Q 4 H PRN P active Not Available Not Available No t Available methenami ne hippurate 1 gram tablet TAKE 1 TABLET BY MOUTH TWICE DAILY active Not Available Not Available No t Available amoxicill in 875 mg tablet 12/11 completed Not Available Not Available Not Available prednisol one acetate 1 % eye drops,sidra pension 03/27 completed Not Available Not Available Not Available ciproflox acin 0.3 % eye drops 04/28 completed Not Available Not Available Not Available Kenalog 10 mg/mL suspensio n for injection Take 20 mg by injectio n route. 2023 active [facility]: [phone] 4-20 Not Available Not Available Not Available meclizine 25 mg tablet TAKE 1 TABLET BY MOUTH TWICE DAILY NEEDED active Not Available Not Available No t Available Betimol 0.5 % eye drops INT 1 GTT IN OS BID 11/10 completed Not Available Not Available Not Available erythromy ozzie 5 mg/gram (0.5 %) eye ointment active Not Available Not Available Not Available Alrex 0.2 % eye drops,sidra pension INSTILL 1 DROP INTO BOTH EYE 3 TIMES DAILY FOR 1 WEEK, THEN TWICE DAILY FOR 1 WEEK 01/10 completed Not Available Not Available Not Available hydrochlo rothiazid e 12.5 mg capsule TAKE 1 CAPSULE BY MOUTH EVERY DAY active Not Available Not Available No t Available aspirin 81 mg chewable tablet 04/28 completed Not Available Not Available Not Available monteluka st 10 mg tablet TAKE 1 TABLET BY MOUTH EVERY DAY active Not Available Not Available No t Available azelastin e 137 mcg (0.1 %) nasal spray Scheller 2 sprays twice a day by intranas al route. 08/15 completed Not Available Not Available Not Available cefuroxim e axetil 500 mg tablet TAKE 1 TABLET BY MOUTH EVERY 12 HOURS FOR 14 DAYS active Not Available Not Available No t Available methylpre dnisolone 4 mg tablets in a dose pack FOLLOW PACKAGE DIRECTIO NS active Not Available Not Available No t Available timolol maleate 0.5 % eye drops PLACE 1 DROP INTO RIGHT EYE TWICE DAILY active Not Available Not Available No t Available fluticaso ne propionat e 50 mcg/actua tion nasal spray,sidra pension 05/05 completed Not Available Not Available Not Available doxycycli ne hyclate 100 mg tablet Take 1 tablet twice a day by oral route for 10 days. 07/04 completed Not Available Not Available Not Available Hibiclens 4 % topical liquid SHOWER WITH BODY WASH NIGHT BEFORE AND MORNING OF SURGERY BEFORE COMING IN FOR SURGERY. TAKE EXTRA TIME TO THOROUGH LY WASH SURGICAL AREA. 05/28 completed Not Available Not Available Not Available naproxen 500 mg tablet 03/14 completed Not Available Not Available Not Available diazepam 5 mg tablet TAKE 1 TABLET BY MOUTH TWICE DAILY active Not Available Not Available No t Available amoxicill in 875 mg-potass ium clavulana te 125 mg tablet TAKE 1 TABLET BY MOUTH EVERY 12 HOURS FOR 10 DAYS active Not Available Not Available No t Available dorzolami de 2 % eye drops INSTILL 1 DROP INTO BOTH EYES BID. 11/10 completed Not Available Not Available Not Available oxycodone 5 mg tablet take 1-2 tablets po q 4-6hr prn pain active Not Available Not Available No t Available rosuvasta tin 20 mg tablet TAKE 1 TABLET BY MOUTH EVERY DAY 06/12 completed Not Available Not Available Not Available Marcaine (PF) 0.5 % (5 mg/mL) injection solution Take 20 mg by injectio n route. 2023 active Not Available Not Available Not Avai lable nitrofura ntoin monohydra te/macroc rystals 100 mg capsule TAKE 1 CAPSULE BY MOUTH TWICE DAILY active Not Available Not Available No t Available Lipitor 11/04 completed duplicat e Not Available Not Available Not Available Klor-Con 10mg BID 10/27 completed Not Available Not Available Not Available Alphagan P 0.1 % eye drops 04/28 completed Not Available Not Available Not Available nebivolol 5 mg tablet TAKE 1 TABLET BY MOUTH EVERY DAY active Not Available Not Available No t Available GaviLyte- N 420 gram oral solution 07/27 completed Not Available Not Available Not Available ropivacai ne (PF) 5 mg/mL (0.5 %) injection solution in office 2022 active Not Available Not Available Not Avai lable lotepredn ol etabonate 0.5 % eye gel drops INSTILL 1 DROP IN BOTH EYES EVERY DAY FOR 3 WEEKS active Not Available Not Available No t Available Eliquis 2.5 mg tablet 07/24 completed Not Available Not Available Not Available Fluvirin 5402-7471 45 mcg (15 mcg x 3)/0.5 mL intramusc ular suspensio n active Not Available Not Available Not Available Fluzone High-Dose (PF) 180 mcg/0.5 mL intramusc ular syringe active Not Available Not Available Not Available Fluzone High-Dose (PF) 180 mcg/0.5 mL intramusc ular syringe active Not Available Not Available Not Available Fluzone High-Dose 7283-7892 (PF) 180 mcg/0.5 mL intramusc ular syringe ADM 0.5ML IM UTD 08/10 completed Not Available Not Available Not Available Fluzone High-Dose 2801-7189 (PF) 180 mcg/0.5 mL intramusc ular syringe 08/07 completed Not Available Not Available Not Available Rhopressa 0.02 % eye drops INT 1 GTT IN OS HS active Not Available Not Available No t Available Fluzone High-Dose 1714-3586 (PF) 180 mcg/0.5 mL intramusc ular syringe 08/07 completed Not Available Not Available Not Available Rocklatan 0.02 %-0.005 % eye drops INSTILL 1 DROP IN BOTH EYES EVERY EVENING active Not Available Not Available No t Available aspirin 81 mg capsule Take by oral route. 04/27 completed Not Available Not Available Not Available Paxlovid 300 mg (150 mg x 2)-100 mg tablets in a dose pack TAKE 2 NIRMATRE LVIR TABLETS AND 1 RITONAVI R TABLET TOGETHER BY MOUTH TWICE DAILY FOR 5 DAYS 01/10 completed Not Available Not Available Not Available Vitals Date Recorded Body height Body mass index (BMI) Body weight Body temperature Heart rate Systolic blood pressure Diastolic blood pressure Provider Name and Address Organization Details Last Updated DateTime 3 149.86 cm 28.5 kg/m2 71042.5 2 g 97.3 [degF] 70 /min 120 mm[Hg] 84 mm[Hg] ROBERT Cohen [place] [employer] [facility] [employer] 3 10:32:34 Date Recorded Body height Body mass index (BMI) Body weight Provider Name and Address Organization Details Last Updated DateTime 08/15/2023 147.32 cm 29.3 kg/m2 16386.93 g ROBERT Pierre Caviar 08/15/2023 13:33:23 Date Recorded Body height Body mass index (BMI) Body weight Body temperature Provider Name and Address Organization Details Last Updated DateTime 08/15/2023 147.32 cm 29.6 kg/m2 29119.4 g 97.7 [degF] Libra Gutierrez RN [facility] [employer] 08/15/2023 16:39:22 Date Recorded Body height Body mass index (BMI) Body weight Provider Name and Address Organization Details Last Updated DateTime 03/17/2024 147.32 cm 25.1 kg/m2 93205.08 g Alannah Finn [place] [employer] [facility] 03/17/2024 15:33:22 Date Recorded Body height Body mass index (BMI) Body weight Body temperature Provider Name and Address Organization Details Last Updated DateTime 04/09/2024 147.32 cm 26.6 kg/m2 24115.95 g 98.6 [degF] DARIELA Oquendo [facility] [employer] [facility] 04/09/2024 14:44:00 Social History Question Answer Notes LastModified by Organization Details LastModified Time Tobacco Smoking Status Never Smoker Not Available [facility] 10/17/2022 02:47:20 Do You Have An Advance Directive? Yes Patient To Bring Copy For Chart. [id number] Information not available 10/17/2022 What Is Your Level Of Alcohol Consumption? None [id number] Information not available 10/17/2022 Do You Wear A Helmet When Biking? No Does Not Bike [email or web address].[id number] Information not available 10/17/2022 Are You Blind Or Do You Have Difficulty Seeing? Yes Patient Has Glaucoma. [id number] [id number] Information not available 10/17/2022 What Is Your Level Of Caffeine Consumption? Occasional [id number] Information not available 10/17/2022 How Much Tobacco Do You Chew? None [id number] Information not available 10/17/2022 In The 14 Days Before Symptom Onset, Have You Had Close Contact With A Laboratory-confi rmed COVID-19 While That Case Was Ill? No [id number] Information not available 10/17/2022 In The 14 Days Before Symptom Onset, Have You Had Close Contact With A Person Who Is Under Investigation For COVID-19 While That Person Was Ill? No [id number] Information not available 10/17/2022 Are You Currently Employed? No [email or web address] Information not available 06/12/2023 Are You Deaf Or Do You Have Serious Difficulty Hearing? No [id number] Information not available 10/17/2022 What Type Of Diet Are You Following? REGULAR [id number].[id number] [id number] Information not available 10/17/2022 Which Illicit Or Recreational Drugs Have You Used? None [id number] Information not available 10/17/2022 Do You Or Have You Ever Used E-cigarettes Or Vape? Never Used Electronic Cigarettes [email or web address].[id number] [id number] Information not available 10/17/2022 What Is Your Occupation? Retired [email or web address].0301 [id number] Information not available 10/17/2022 Have There Been Any Changes To Your Family Or Social Situation? No [email or web address].[id number] [id number] Information not available 10/17/2022 What Is The Fluoride Status Of Your Home? Unknown [email or web address].[id number] [id number] Information not available 10/17/2022 Are There Any Guns Present In Your Home? Yes [id number] [id number] Information not available 10/17/2022 Do You Use Insect Repellent Routinely? Yes [id number] [id number] Information not available 10/17/2022 Where Do You Live? 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 07/04/2023 [email or web address] Information not available 07/04/2023 Do You Have Any Pets? No MIGRATION.[id number] [id number] Information not available 10/17/2022 What Is Your Relationship Status? [email or web address].[id number] [id number] Information not available 10/17/2022 Do You Use Your Seat Belt Or Car Seat Routinely? Yes [email or web address] [id number] Information not available 10/17/2022 Do You Have Smoke And Carbon Monoxide Detectors In Your Home? Yes [email or web address].[id number] [id number] Information not available 10/17/2022 Are You Passively Exposed To Smoke? No [email or web address].0301 [id number] Information not available 10/17/2022 Do You Or Have You Ever Used Smokeless Tobacco? Never Used Smokeless Tobacco [id number].[id number] [id number] Information not available 10/17/2022 Are There Any Smokers In Your House? No MIGRATION.0301 [id number] Information not available 10/17/2022 How Much Tobacco Do You Smoke? No MIGRATION.0301 [id number] Information not available 10/17/2022 What Types Of Sporting Activities Do You Participate In? None MIGRATION.0301 937056 Information not available 10/17/2022 Do You Feel Stressed (tense, Restless, Nervous, Or Anxious, Or Unable To Sleep At Night)? [id number] MIGRATION.0301 [id number] Information not available 10/17/2022 Do You Use Any Illicit Or Recreational Drugs? No MIGRATION.0301 821823 Information not available 10/17/2022 Do You Use Sunscreen Routinely? Yes MIGRATION.0301 [id number] Information not available 10/17/2022 Has Tobacco Cessation Counseling Been Provided? No MIGRATION.0301 992791 Information not available 10/17/2022 Have You Recently Traveled Abroad? No MIGRATION.0301 900061 Information not available 10/17/2022 Do You Have Any Dietary Restrictions? No MIGRATION.0301 626472 Information not available 10/17/2022 Do You Or Have You Ever Used Any Other Forms Of Tobacco Or Nicotine? No MIGRATION.0301 396296 Information not available 10/17/2022 Sex: Female Functional Status Question Answer Note LastModified by Organizat ion Details LastModified Time Do you have difficulty walking or climbing stairs? No MIGRATION.[id number] 026 Information not available 10/17/2022 Do you have transportation difficulties? No MIGRATION.1223217 026 Information not available 10/17/2022 Are you able to walk? YESWOREST MIGRATION.[id number] 026 Information not available 10/17/2022 Do you have difficulty doing errands alone? No MIGRATION.3454753 026 Information not available 10/17/2022 Are you able to care for yourself? Yes MIGRATION.5020192 026 Information not available 10/17/2022 Do you have difficulty dressing or bathing? No MIGRATION.3252221 026 Information not available 10/17/2022 What is your exercise level? Moderate MIGRATION.9964140 026 Information not available 10/17/2022 Mental Status Question Answer Note LastModified by Organizat ion Details LastModified Time Do you have difficulty concentrating, remembering or making decisions? No MIGRATION.[id number] 6 Information not available 10/17/2022 Family History Relationship Description Onset Age of this Age Resolved Age Notes LastModified by Organization Details LastModified Time Father Malignant tumor of colon MIGRATION.514 [id number] Not available 10/17/2022 02:51:37 Mother Heart disease MIGRATION.261 [id number] Not available 10/17/2022 02:51:37 Mother Hypertensive disorder MIGRATION.070 [id number] Not available 10/17/2022 02:51:37 Medical History Condition Response NERVE DISEASE N BLINDNESS N RHEUMATIC FEVER N KIDNEY STONES N BLADDER PROBLEMS N OTHER # 1 Y POLIO N LUNG DISEASE/DISORDER N RADIATION / CHEMOTHERAPY N COPD N Other # 2 N BLOOD DISEASES N SURGERY N EAR OR HEARING PROBLEMS N MUMPS N BOWEL PROBLEMS N DEPRESSION (INCLUDING POST ) N STROKE/TIA N ULCERS N BENIGN PROSTATIC HYPERPLASIA N MEASLES N MYOCARDIAL INFARCTION N OBESITY N GERD/NAUSEA Y ANEURYSM N URINARY/BLADDER/KIDNEY PROBLEMS Y INPATIENT PSYCH CARE N CORONARY ARTERY DISEASE (CAD) N ADDICTION CONCERNS N Impotence N ENDOMETRIOSIS N USE OF BLOOD THINNERS N SKIN PROBLEMS N GASTROINTESTINAL DISORDER N PERIPHERAL VASCULAR DISEASE N MUSCLE,JOINT OR BONE PROBLEMS N GASTROINTESTINAL BLEEDING N BLOOD CLOTS N ASTHMA N CATARACTS N ERECTILE DYSFUNCTION N VARICOSITIES N GI PROBLEMS N Low Testosterone N INFERTILITY N AIDS/HIV N LIVER DISEASE N MALE HYPOGONADISM N HYPERTENSION Y Deficiency N ANXIETY DISORDER Y BLOOD TRANSFUSION N ANEMIA/BLOOD DISORDER N CHRONIC EAR INFECTIONS N BRONCHITIS N TUBERCULOSIS N GLAUCOMA N FOOT PROBLEM N DIVERTICULITIS N SLEEP APNEA N CHICKENPOX N INFECTIOUS DISEASE N PROSTATE N HEART ARRHYTHMIA N INSOMNIA N HIGH CHOLESTEROL / HYPERLIPIDEMIA Y EYE PROBLEMS N HYPERTHYROIDISM N NEUROLOGICAL PROBLEMS N EDEMA N CHRONIC PAIN SYNDROME N HYPOTHYROIDISM N CONSTIPATION N CAROTID BLOCKAGE N BACK / NECK PROBLEMS Y HAVE YOU BEEN HOSPITALIZED OR SEEN IN [facility] IN THE PAST YEAR ? N ATHEROSCLEROSIS N BREAST PROBLEMS N DIALYSIS N ECZEMA N OSTEOPOROSIS Y ARTHRITIS Y APPENDICITIS N DIABETES, TYPE N BAD TEETH N ENT N HEARTBURN / REFLUX Y AUTISM SPECTRUM DISORDER (ASD) N HEPATITIS / LIVER DISEASE N PULMONARY DISEASE N GOUT N SLEEP DISORDER N ALZHEIMER'S DISEASE N Brain Problems N DEMENTIA N HERPES N SEIZURES/EPILEPSY N HEADACHES/MIGRAINES N VASCULAR DISEASE N PACEMAKER N Blood Disorder N DIZZINESS N HEART DISEASE/HEART PROBLEMS N KIDNEY DISEASE N MULTIPLE SCLEROSIS N CANCER: SPECIFY N CARDIAC ARRHYTHMIA N ANESTHESIA COMPLICATIONS N ATRIAL FIBRILLATION N Gall Stones N PULMONARY EMBOLISM N AUTOIMMUNE DISEASE N Gynecological History Statement/Question Response Date of Last Pap Date of Last Mammogram 05/12/2021 Date of Last Colonoscopy 11/24/2014 Most Recent Bone Density 12/19/2017 Obstetrics History GPAL:G 3 P 3 0 0 0 Type Value Full Term 3 Total 3 Immunizations Vaccine Type Date Status Note Provider Nam e and Address Organization Details Recorded Time COVID-19, mRNA, LNP-S, PF, 100 mcg/0.5mL dose or 50 mcg/0.25mL dose 1 completed Not Available [facility] 09/27/2023 12:57:39 Influenza, split virus, trivalent, preservative 0 completed Not Available [facility] 09/27/2023 12:57:39 Influenza, high-dose, trivalent, PF 8 completed Not Available [facility] 09/27/2023 12:57:39 Influenza, high-dose, trivalent, PF 7 completed Not Available [facility] 09/27/2023 12:57:39 Influenza, high-dose, trivalent, PF 6 completed Not Available [facility] 09/27/2023 12:57:39 pneumococcal polysaccharide PPV23 4 completed Not Available [facility] 09/27/2023 12:57:39 Influenza, split virus, trivalent, preservative 1 completed Not Available [facility] 09/27/2023 12:57:39 COVID-19, mRNA, LNP-S, PF, 100 mcg/0.5mL dose or 50 mcg/0.25mL dose 1 completed Not Available [facility] 09/27/2023 12:57:39 Influenza, high-dose, trivalent, PF 9 completed Not Available [facility] 09/27/2023 12:57:39 Influenza, high-dose, trivalent, PF 5 completed Not Available [facility] 09/27/2023 12:57:39 Influenza, high-dose, trivalent, PF 4 completed Not Available [facility] 09/27/2023 12:57:39 Past Encounters Encounter ID Performer Location Encounter Start Date Encounter Closed Date Diagnosis/Indication Diagnosis SNOMED-CT Code Diagnosis ICD10 Code Diagnosis Note [id number] [facility] [place] [address] [facility] [address] [place] [address] 11/04/2020 00:00:00 11/04/2020 18:20:13 [id number] [facility] [place] [address] [place] [address] 11/10/2020 00:00:00 11/10/2020 12:31:40 [id number] [facility] [place] [address] [place] [address] 01/10/2021 00:00:00 01/10/2021 15:48:42 [id number] [facility] [place] [address] [facility] 15 [place] [address] 03/10/2021 00:00:00 03/12/2021 22:07:06 [id number] [facility] [place] [address] [place], [place] [address]., [address] [address] 06/30/2021 00:00:00 07/01/2021 10:48:35 [id number] [facility] [place] [address] [place], [place] [address] [address] [address] 10/27/2021 00:00:00 12/10/2021 18:04:47 [id number] _ATHENA_M IGRATION_ DEFAULT_1 _1 , 10/27/2021 00:00:00 10/27/2021 10:03:31 [id number] [facility] [place] [address] [place], [place] [address] [address] [address] 11/24/2021 00:00:00 12/09/2021 19:05:39 [id number] [facility] [place] [address] [place], [place] [address] [address] [address] 03/16/2022 00:00:00 03/16/2022 17:03:31 [id number] [facility] [place] [address] [place], [place] [address] [address] [address] 04/27/2022 00:00:00 04/27/2022 16:18:33 [id number] [facility] [place] [address] [address] 05/21/2022 00:00:00 05/22/2022 08:08:38 [id number] [facility] [address] [address] 06/14/2022 00:00:00 06/14/2022 11:49:15 [id number] [facility] [place] [address] [place] [address] 06/21/2022 00:00:00 06/21/2022 11:24:39 [id number] [facility] [address] [place] [address] , [address] [address] 07/06/2022 00:00:00 07/15/2022 11:15:18 [id number] [facility] [address] [place] [address] [address] 07/24/2022 00:00:00 07/24/2022 22:45:48 [id number] Jackson Blank MD [facility] [address] [place] [address] [address] 11/09/2022 09:51:56 11/09/2022 10:38:45 Chronic rhinitis 34050586 J31.0 Essential hypertension 57236027 I10 Hyperlipidemia 06943379 E78.5 [id number] DARRICK Torres [facility] [address] [address] 01/10/2023 10:46:01 01/10/2023 12:25:03 Pain of left knee joint 6792405916 01286 M25.562 [id number] Jackson Blank MD [facility] [address] [place] [address] [address] 03/15/2023 12:38:06 03/15/2023 14:13:10 Anxiety 11364392 F41.9 Hypercholesterolemia 136 44527 E78.00 Gastroesop hageal reflux disease 682149652 K21.9 Essential hypertension 09051456 I10 Vertigo 189408633 R42 [id number] Jackson Blank MD [facility] [address] [facility] 15 [place] [address] 06/12/2023 11:29:16 06/12/2023 12:51:30 Cough 24540754 R05.9 Pleural effusion 3611884 8 J90 Essential hypertension 22296273 I10 Anxiety 60140671 F41.9 Chronic rhinitis 1735419 6 J31.0 [id number] Jackson Blank MD [facility] [address] [facility] [address] [place] [address] 07/04/2023 10:25:34 07/04/2023 11:28:44 Anxiety 81861316 F41.9 Allergic rhinitis 356276 04 J30.9 Chronic hoarseness 95948 16965 105 R49.0 Essential hypertension 06714347 I10 Hypercholesterolemia 136 04989 E78.00 [id number] DARRICK Torres [facility] [address] [place] [address] 08/15/2023 11:44:27 08/15/2023 14:11:26 Osteoarthritis of left knee joint 8932969437 26290 M17.12 [id number] Mohit Grissom MD [facility] [place] [address] [place] [address] 08/15/2023 15:53:53 08/16/2023 11:30:30 Sore throat 571166349 J02.9 Paralysis of right vocal cord 546432392 J38.01 [id number] Mohit Grissom MD [facility] [place] [address] [place] [address] 04/09/2024 14:38:48 04/09/2024 15:54:59 Posterior rhinorrhea 25865202 R09.82 Paralysis of right vocal cord 715860323 J38.01 [id number] DARRICK Trujillo [facility] [place] [address] [place] [address] 03/17/2024 15:29:55 03/17/2024 16:02:59 Osteoarthritis of left knee joint 6248421444 34331 M17.12 Pain of le ft knee joint 9420130570 97188 M25.562 Health Concerns Section Related Observation LastModified by Organization Detai ls LastModified Time None Recorded Concern Status LastModified by Organization Details LastModified Time None Recorded Advance Directives Directive Y: Patient to bring copy for chart. Payers Encounter Date Sequence Insurance Name Policy Number Policy Rojas Covered Member ID Rojas Member ID Guarantor Name 07/04/2023 1 [place] Parisa L Carrillo [id number] Parisa L Carrillo 07/04/2023 2 [employer] (PPO) PLAN F Parisa L Carrillo [id number] Parisa L Carrillo 08/15/2023 1 [place] Parisa L Carrillo [id number] Parisa L Carrillo 08/15/2023 2 [employer] (PPO) PLAN F Parisa L Carrillo [id number] Parisa L Carrillo 08/15/2023 1 [place] Parisa L Carrillo [id number] Parisa L Carrillo 08/15/2023 2 [employer] (PPO) PLAN F Parisa L Carrillo [id number] Parisa L Carrillo 03/17/2024 1 [place] Parisa L Carrillo [id number] Parisa L Carrillo 03/17/2024 2 [employer] (PPO) PLAN F Parisa L Carrillo [id number] Parisa L Carrillo 04/09/2024 1 [place] Parisa L Carrillo [id number] Parisa L Carrillo 04/09/2024 2 [employer] (PPO) PLAN F Parisa L Carrillo [id number] Parisa L Carrillo Notes Date Note Type Note Provider Name and Address Organization Details Recorded Time 07/04/2023 text/html Cholesterol HighHypertension no chest pain or shortness of breathChronic rhinitis stableGERD stable Jackson Blank MD [address], [place], [address], [facility] 07/08/2023 22:01:59 08/15/2023 text/html this patient was 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 The patient feels very strongly that this occurred as a sequela of COVID. Her hoarseness began immediately during and after a COVID infection. her chest CT was negative Mohit Grissom MD [address], [place], [address], [facility] 08/15/2023 16:49:40 03/17/2024 text/html Patient returns with left knee pain. Most of the pain is anterior her previous x-rays show significant moderately severe patellofemoral osteoarthritis she has mild tibial femoral articulation osteoarthritis of the left knee. She has had a previous right total knee arthroplasty this is doing well her left knee continues to bother her she would rather get by with conservative measures it has been 7 months since her last cortisone injection in the left knee which gave her 3-4 months relief she has been putting up with it for awhile has decided to have another shot of cortisone in her left knee. Denies any new trauma or injury states her pain is about a 4 on a scale of 1-10 today some days it is worse than others. If she overdoes it it bothers her keeps her awake at night sometimes limits her daily activities she can not stand or walk for long periods has trouble squatting kneeling going up and down stairs because of her patellofemoral osteoarthritis. She denies any mechanical symptoms other than the crepitation no effusion or swelling. She comes in today for cortisone injection left knee.I reviewed her previous past medical history today in detail with the patient it is unchanged from her previous visit. DARRICK Trujillo [address], [place], [address], [facility] 03/17/2024 16:10:28 04/09/2024 text/html This patient has a known right vocal cord paralysis. She reports no change in her voice but she reports that she has a constant throat irritation. She uses cough drops for this. She did have a pleural effusion and pleurocentesis recently. Mohit Grissom MD [address] [facility], [facility] [address], [place], [address], [facility] [email or web address] [facility] 04/09/2024 14:59:35 OBGyn Episode No OBEpisode recorded.
--- OUTSIDE RECORDS SUMMARY | 2024-09-29 01:00 | XMS_ITS | Patient Health Summary ---
Author Organization [facility] Address [address] [place] [address] Care Team Providers Care Digital Media Analyst Name Role Phone Jackson Blank MD Primary Care Provider [phone] Note from [facility],non-owned Affiliates and Associated Physician Practices is amultiple site organization consisting of ambulatory clinics and hospital sitesin [place], [place], [place] and [place]. This disclosure is being madepursuant to the Care Everywhere program and may not contain all information available regarding this patient. Last updated 18.[facility] Allergies * Sulfa Drugs Medications * Be aware that medications may not be up to date on this document. Alwaysverify current medications with the patient. * hydrocodone-acetaminophen (VICODIN) 5-500 MG tablet(Started 01/07/2010) Take 1-2 Tabs by mouth 4 times daily as needed for Pain. * ondansetron (disintegrating) (ZOFRAN ODT) 8 MG tablet(Started 01/07/2010) Take 1 Tab by mouth every 4 hours as needed for Nausea/Vomiting. Active Problems Problem Noted Date Diagnosed Date [...] Mass Index 25.39 01/07/2010 12:57 PM CDT Procedures * URINALYSIS REFLEX MICROSCOPIC REFLEX CULTURE(Performed 01/07/2010) * CULTURE URINE(Performed 01/07/2010) * COMPREHENSIVE METABOLIC PANEL(Performed 01/07/2010) * CBC W AUTO DIFFERENTIAL(Performed 01/07/2010) * CT RENAL STONE(Performed 01/07/2010) Performed for Pyelonephritis Results * URINALYSIS ROUTINE W/REFLEX TO CULTURE (01/07/2010 6:39 PM CDT) Color UA YELLOW [facility] Character UA CLOUDY [facility] Specific Valier UA 1.014 1.005 - 1.0300 [facility] pH UA 5.5 4.6 - 8.0 pH Units [facility] Leukocyte UA LARGE Negative /ul [facility] Nitrite UA POSITIVE Negative [facility] Protein UA 30 Negative mg/dl [facility] Glucose UA NEGATIVE Normal mg/dl [facility] Ketone UA NEGATIVE Negative mg/dl [facility] Urobilinogen UA 0.2 Normal Torie Units [facility] Bilirubin UA NEGATIVE Negative mg/dl [facility] Blood UA LARGE Negative /ul [facility] WBC UA PACKED /HPF [facility] RBC UA 5-10 /HPF [facility] Epithelial Cell UA 20-50 /HPF [facility] Casts UA <2 /LPF [facility] Bacteria UA MANY [facility] Urine Culture Reflex to culture, /a [id number] [facility] URINE SPECIMEN COLLECTION, CATHETERIZED / Unknown 01/07/2010 6:39 PM CDT 01/07/2010 6:39 PM CDT Bryant Katz DO LAB - URINALYSIS O RDERABLES [facility] [address] [place] [address] * CULTURE URINE (01/07/2010 6:39 PM CDT) Result [facility] Comment: Final CULTURE ESCHERICHIA COLI >100,000 colonies/ml Ampicillin JUNITO Sensitive <=2 ug/ml Cefazolin JUNITO Sensitive <=8 ug/ml Ciprofloxacin JUNITO Sensitive <=0.5 ug/ml Gentamicin JUNITO Sensitive <=1 ug/ml Levofloxacin JUNITO Sensitive <=2 ug/ml Nitrofurantoin JUNITO Sensitive <=32 ug/ml Pip/Tazobactam JUNITO Sensitive <=8 ug/ml Trimeth/Sulfa JUNITO Sensitive <=2/38 ug/ml LACTOBACILLUS SPECIES >10,000 colonies/ml URINE SPECIMEN COLLECTION, CATHETERIZED / Unknown 01/07/2010 6:39 PM CDT 01/07/2010 7:00 PM CDT Narrative Resulting Agency Comment Performed By [facility];[address] [place] [address];[place] [address] Dp Generic Ed Physician LAB - MICROBIO LOGY ORDERABLES [facility] [address] [place] [address] * (ABNORMAL) CBC W AUTO DIFFERENTIAL (01/07/2010 6:10 PM CDT) WBC 14.7(H) 4.5 - 11.0 1000/mm3 [facility] RBC 4.64 4.2 - 5.4 10X6 [facility] Hemoglobin 14.4 12.0 - 16.0 gm/dl [facility] Hematocrit 42.7 36.0 - 48.0 % [facility] MCV 92.0 80.0 - 99.0 fl [facility] MCH 31.0 25.0 - 31.0 pg [facility] MCHC 33.7 32.0 - 36.0 gm/dl [facility] RDW 12.9 11.5 - 14.5 % [facility] Platelet Count 277 130.0 - 400.0 1000/mm3 [facility] Granulocytes % 77.0(H) 40.0 - 70.0 % [facility] Lymphocytes % 14.5(L) 22.0 - 40.0 % [facility] Monocytes % 7.8 2.0 - 10.0 % [facility] Eosinophils % 0.5 0.0 - 6.0 % [facility] Basophils % 0.2 0.0 - 3.0 % [facility] Granulocytes Absolute 11.30(H) 1.8 - 7.7 [facility] Lymphocytes Absolute 2.13 1.0 - 5.4 [facility] Monocytes Absolute 1.14(H) 0.1 - 1.1 [facility] Eosinophils Absolute 0.07 0.0 - 0.7 [facility] Basophils Absolute 0.03 0.0 - 0.2 [facility] Comment Manual Diff Not Indicated [facility] BLOOD SPECIMEN / Unknown 01/07/2010 6:10 PM CDT 01/07/2010 6:39 PM CDT David Bautista MD LAB - HEMATOLOGY O RDERABLES [facility] [address] [place] [address] * (ABNORMAL) COMPREHENSIVE METABOLIC PANEL (01/07/2010 6:10 PM CDT) BUN 13 7.0 - 17.0 mg/dl [facility] Sodium 143 137 - 145 mmol/L [facility] Potassium 3.1(L) 3.6 - 5.0 mmol/L [facility] Chloride 101 98.0 - 107.0 mmol/L [facility] Glucose 98 75 - 110 mg/dl [facility] Creatinine 0.8 0.52 - 1.05 mg/dl [facility] AST 30 14.0 - 36.0 U/L [facility] Alkaline Phosphatase 56 38.0 - 126.0 U/L [facility] Calcium 9.9 8.4 - 10.2 mg/dl [facility] Bilirubin Total 0.6 0.2 - 1.3 mg/dl [facility] Albumin 5.0 3.5 - 5.0 gm/dl [facility] Protein Total 8.5(H) 6.3 - 8.2 gm/dl [facility] CO2 32(H) 22.0 - 30.0 mEq/L [facility] ALT 11 9.0 - 52.0 U/L [facility] eGFR by MDRD 70.91 ml/min/1.7 3m2 [facility] BLOOD SPECIMEN / Unknown 01/07/2010 6:10 PM CDT 01/07/2010 6:39 PM CDT David Bautista MD LAB - CHEMISTRY OR DERABLES [facility] [address] [place] [address] * CT RENAL STONE (01/07/2010 2:25 PM CDT) Anatomical Region Laterality Modality Abdomen Computed Tomogra phy 01/07/2010 2:30 PM CDT Impressions 01/07/2010 2:37 PM CDT No obstruction or definite urinary stone seen at this time. Narrative 01/07/2010 2:37 PM CDT Examination: Noncontrast Abdomen and Pelvic CT Indication: Bilateral flank pain with nausea and abdominal bloating. Kidney stones in the past. Technique: Noncontrast CT images of the abdomen and pelvis were performed. The stone protocol without IV contrast and without oral contrast was requested for this examination. Findings: CT Abdomen: No measurable calculi can be identified in the kidneys. The left renal pelvis is enlarged but the ureter is normal in size. The liver, spleen and pancreas have a homogeneous CT density but cannot be fully evaluated on this limited protocol exam. No dilated bowel loops can be seen. There is no free fluid in the abdomen. CT Pelvis: The distal ureters are normal in size. Numerous calcifications are present in the pelvis especially on the left. Several calcifications are near the expected course of the distal ureter. In the absence of obstruction, this means these are more likely vascular calcifications rather than ureteral calculi but I cannot be absolutely certain. The bladder is filled with urine and is smooth in outline. No pelvic mass is present. This report was transcribed with a computerized speech recognition system. In an effort to expedite patient care, it has not been adjusted for typographical, grammatical or syntax problems by a trained medical office technologist. For questions about the report, please contact the Radiology Department. Procedure Note Jarrett Negro MD - 01/07/2010 Examination: Noncontrast Abdomen and Pelvic CT Indication: Bilateral flank pain with nausea and abdominal bloating. Kidney stones in the past. Technique: Noncontrast CT images of the abdomen and pelvis were performed. The stone protocol without IV contrast and without oral contrast was requested for this examination. Findings: CT Abdomen: No measurable calculi can be identified in the kidneys. The left renal pelvis is enlarged but the ureter is normal in size. The liver, spleen and pancreas have a homogeneous CT density but cannot be fully evaluated on this limited protocol exam. No dilated bowel loops can be seen. There is no free fluid in the abdomen. CT Pelvis: The distal ureters are normal in size. Numerous calcifications are present in the pelvis especially on the left. Several calcifications are near the expected course of the distal ureter. In the absence of obstruction, this means these are more likely vascular calcifications rather than ureteral calculi but I cannot be absolutely certain. The bladder is filled with urine and is smooth in outline. No pelvic mass is present. This report was transcribed with a computerized speech recognition system. In an effort to expedite patient care, it has not been adjusted for typographical, grammatical or syntax problems by a trained medical office technologist. For questions about the report, please contact the Radiology Department. IMPRESSION No obstruction or definite urinary stone seen at this time. David Bautista MD CT ORDERABLES Care Teams Digital Media Analyst Relationship Specialty Start Date End Date Jackson Blank MD [address] [place] [address] PCP - General 01/07/10
--- OUTSIDE RECORDS SUMMARY | 2024-09-29 01:00 | XMS_ITS | Clinical Summary ---
Author Organization [facility] Address [address] [place] [address] Care Team Providers Care Banquet Server On Call Name Role Phone Jackson Blank MD Primary Care Provider [phone] Source Comments [facility],non-owned Affiliates and Associated Physician Practices is amultiple site organization consisting of ambulatory clinics and hospital sitesin [place], [place], [place] and [place]. This disclosure is being madepursuant to the Care Everywhere program and may not contain all information available regarding this patient. Last updated 18.[facility] [employer] Allergies Active Allergy Reactions Criticality Noted Date [...] 01/07/2010 12:57 PM CDT Plan of Treatment Health Maintenance Due Date Last Done Comments BONE DENSITY TESTING 1940 DTAP/TDAP/TD VACCINES (1 - Tdap) 1958 PNEUMOCOCCAL VACCINE 50+ (1 of 1 - PCV) 1989 ZOSTER VACCINE (1 of 2) 1989 Respiratory Syncytial Virus (RSV) Vaccine Pt: or over 60 yrs (1 - 1-dose 75+ series) 2014 COVID-19 VACCINE ( - 2023-2 5 season) 2024 INFLUENZA VACCINE (#1) 2024 DEPRESSION SCREENING 08/19/2024 HEPATITIS B VACCINE Aged Out No longe r eligible based on patient's age to complete this topic HIB VACCINE Aged Out No longer eligi ble based on patient's age to complete this topic HPV VACCINE Aged Out No longer eligi ble based on patient's age to complete this topic MENINGOCOCCAL (Group B) VACCINE Aged Out No longer eligible based on patient's age to complete this topic MENINGOCOCCAL VACCINE Aged Out No jairo andreas eligible based on patient's age to complete this topic Care Teams Banquet Server On Call Relationship Specialty Start Date End Date Jackson Blank MD [address] [place] [address] PCP - General 01/07/10
--- OUTSIDE RECORDS SUMMARY | 2024-09-29 01:00 | XMS_ITS | Data Portability ---
Author Organization [facility] Nanda Escobedo Address [address] 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 We will go ahead and obtain some blood work and urinalysis. Restart her pantoprazole. I would like to see her back in about 3 months however depending upon the results of the testing and the workup from Pulmonary we may see her back sooner healthy lifestyle care instructions as well [email or web address] Not available 05/29/2024 16:51:00 07/03/2024 07/03/2024 nifedipine ER 30 mg daily follow up in 1 month. Needs a refill of her meclizine we will go ahead and take care of that as well may need upper and lower endoscopies. My worry though is that she does have some nodules in her lung and I am concerned that the effusion may be malignant but we will await Pulmonary final recommendations [email or web address] Not available 07/04/2024 14:06:20 08/07/2024 08/07/2024 we will obtain blood work. Gi referral for the abdominal pain she has lost about 17 lb since September of 2023. I did review the note from Pulmonary as well. 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 She has seen GI she is scheduled for an upper GI with small-bowel follow-through I believe and then possibly upper endoscopy after that I think we may need to just go to an upper endoscopy and I will contact them to discuss that. She will see me back in 1 month. She understands that if shortness of breath becomes severe or abdominal pain severe to go to the hospital [email or web address] Not available 09/16/2024 22:23:04 Plan of Treatment Reminders Order Date Submit Date Provider Last Modified By Organization Details Last Modified Time Details Appointments ANY 15 2024 01:45P Earlene Blank MD Not available Not available Not available Lab CBC w/ auto diff 2023 [facility] Stringer, [address], [place], [address], 05/30/2024 10:22:16 lipase, serum or plasma 2023 HARSH[facility] Stringer, [address], [address], [place], [address], 05/30/2024 10:22:13 urinalysi s, complete 2023 HARSH[facility] Stringer, [address], [address], [place], [address], 05/30/2024 10:22:15 CMP, serum or plasma 2023 HARSH[facility] Stringer, [address], [address], [place], [address], 05/30/2024 10:22:11 CBC w/ auto diff 2023 [facility], [address], [address], [place], [address], 08/09/2024 06:42:40 CMP, serum or plasma 2023 024 [place] [facility], [address], [address], [place], [address], 08/09/2024 06:42:37 T4, free, serum 2023 [place] [facility], [address], [address], [place], [address], 08/09/2024 06:42:43 TSH, ultra-sen sitive, serum 2023 [facility], [address], [address], [place], [address], 08/09/2024 06:42:39 T3, free, serum or plasma 2023 024 [facility], [address], [address], [place], [address], 08/09/2024 06:42:42 cortisol, serum or plasma 2023 024 [facility], [address], [address], [place], [address], 08/09/2024 06:42:38 Referral gastroent erologist referral - Pt needs office visit for abd. pain. 2023 024 [facility], [address], [address], [place], [address], 09/01/2024 17:11:51 Procedures lexiscan cardiolit e stress test (PROC) 2023 [facility] ([facility]), [address], [place], [address], 09/24/2024 14:38:38 Surgeries None recorded. Imaging CT, chest + abdomen + pelvis, w/ contrast 2023 [facility] ([facility]), [address], [place], [address], 06/09/2024 10:43:56 Medication Orders pantopraz ole 20 mg tablet,de layed release 2023 [id number], [address], [place], [place], [id number], 05/29/2024 15:56:13 losartan 50 mg tablet 2023 024 [facility] #[id number], [address], [place], [place], [id number], 06/19/2024 11:59:03 meclizine 25 mg tablet 2023 024 [facility] #[id number], [address], [place], [place], [id number], 07/03/2024 13:08:36 nifedipin e ER 30 mg tablet,ex tended release 2023 024 [facility] #[id number], [address], [place], [place], [id number], 07/03/2024 13:08:36 Patient TargetsNo targets recorded. 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 pain. Referring Physician: Nicolette Blank, Internal Medicine, Encounter Date: 08/07/2024 Results Created Date Observation Date Name Description Value Unit Range Abnormal Flag Note LastModifiedBy Organization Detail LastModifiedTime 05/29/20 24 05/30/2024 COMP. METAB OLIC PANEL (14) glucose 94 mg/dL 70-99 Not Available [facility] ([facility]) [address] [place], [address], 05/30/2024 10:22:11 05/29/20 24 05/30/2024 COMP. METAB OLIC PANEL (14) BUN 17 mg/dL 8-27 Not Available [facility] ([facility]) [address] [place], [address], 05/30/2024 10:22:11 05/29/20 24 05/30/2024 COMP. METAB OLIC PANEL (14) creatinine 0.64 mg/dL 0.57-1 .00 Not Available [facility] ([facility]) [address] [place], [address], 05/30/2024 10:22:11 05/29/20 24 05/30/2024 COMP. METAB OLIC PANEL (14) eGFR 87 mL/mi n/1.7 3 >59 Not Available [facility] ([facility]) [address] [place], [address], 05/30/2024 10:22:11 05/29/20 24 05/30/2024 COMP. METAB OLIC PANEL (14) BUN/creatini ne ratio 27 12-28 Not Available [facility] ([facility]) [address] [place], [address], 05/30/2024 10:22:11 05/29/20 24 05/30/2024 COMP. METAB OLIC PANEL (14) sodium 141 mmol/ L 134-14 4 Not Available [facility] ([facility]) [address] [place], [address], 05/30/2024 10:22:11 05/29/20 24 05/30/2024 COMP. METAB OLIC PANEL (14) potassium 4.5 mmol/ L 3.5-5. 2 Not Available [facility] ([facility]) [address] [facility], [place], [address], 05/30/2024 10:22:11 05/29/20 24 05/30/2024 COMP. METAB OLIC PANEL (14) chloride 102 mmol/ L 96-106 Not Available [facility] ([facility]) [address] [facility], [place], [address], 05/30/2024 10:22:11 05/29/2005/30/2024 COMP. METAB OLIC PANEL (14) carbon dioxide, total 23 mmol/ L 20-29 Not Available [facility] ([facility]) [address] [facility], [place], [address], 05/30/2024 10:22:11 05/29/20 24 05/30/2024 COMP. METAB OLIC PANEL (14) calcium 9.6 mg/dL 8.7-10 .3 Not Available [facility] ([facility]) [address] [facility], [place], [address], 05/30/2024 10:22:11 05/29/20 24 05/30/2024 COMP. METAB OLIC PANEL (14) protein, total 7.2 g/dL 6.0-8. 5 Not Available [facility] ([facility]) [address] [facility], [place], [address], 05/30/2024 10:22:11 05/29/20 24 05/30/2024 COMP. METAB OLIC PANEL (14) albumin 3.8 g/dL 3.7-4. 7 Not Available [facility] ([facility]) [address] [facility], [place], [address], 05/30/2024 10:22:11 05/29/20 24 05/30/2024 COMP. METAB OLIC PANEL (14) globulin, total 3.4 g/dL 1.5-4. 5 Not Available [facility] ([facility]) [address] [place], [address], 05/30/2024 10:22:11 05/29/20 24 05/30/2024 COMP. METAB OLIC PANEL (14) bilirubin, total 0.4 mg/dL 0.0-1. 2 Not Available [facility] ([facility]) [address] [place], [address], 05/30/2024 10:22:11 05/29/20 24 05/30/2024 COMP. METAB OLIC PANEL (14) alkaline phosphatase 44 IU/L 44-121 Not Available [facility] ([facility]) [address] [place], [address], 05/30/2024 10:22:11 05/29/20 24 05/30/2024 COMP. METAB OLIC PANEL (14) AST (SGOT) 19 IU/L 0-40 Not Available [facility] ([facility]) [address] [place], [address], 05/30/2024 10:22:11 05/29/20 24 05/30/2024 COMP. METAB OLIC PANEL (14) ALT (SGPT) 10 IU/L 0-32 Not Available [facility] ([facility]) [address] [place], [address], 05/30/2024 10:22:11 05/29/20 24 05/30/2024 MICRO SCOPI C EXAMI NATIO N WBC >30 /hpf 0-5 abnormal Not Available [facility] ([facility]) [address] [place], [address], 05/30/2024 10:22:13 05/29/20 24 05/30/2024 MICRO SCOPI C EXAMI NATIO N RBC 0-2 /hpf 0-2 Not Available [facility] ([facility]) [address] [facility], [place], [address], 05/30/2024 10:22:13 05/29/2005/30/2024 MICRO SCOPI C EXAMI NATIO N epithelial cells (non renal) >10 /hpf 0-10 abnormal Not Available [facility] ([facility]) [address] [facility], [place], [address], 05/30/2024 10:22:13 05/29/2005/30/2024 MICRO SCOPI C EXAMI NATIO N casts None seen /lpf nonese en Not Available [facility] ([facility]) [address] [facility], [place], [address], 05/30/2024 10:22:13 05/29/2005/30/2024 MICRO SCOPI C EXAMI NATIO N crystals Presen t n/a abnormal Not Available [facility] ([facility]) [address] [facility], [place], [address], 05/30/2024 10:22:13 05/29/2005/30/2024 MICRO SCOPI C EXAMI NATIO N crystal type Calciu m Oxalat e Not Available [facility] ([facility]) [address] [facility], [place], [address], 05/30/2024 10:22:13 05/29/2005/30/2024 MICRO SCOPI C EXAMI NATIO N bacteria None seen nonese en/few Not Available [facility] ([facility]) [address] [facility], [place], [address], 05/30/2024 10:22:13 05/29/2005/30/2024 LIPAS E lipase 17 U/L 14-85 Not Available [facility] ([facility]) [address] [facility], [place], [address], 05/30/2024 10:22:13 05/29/2005/30/2024 URINA LYSIS , COMPL ETE specific gravity 1.016 1.005- 1.030 Not Available [facility] ([facility]) [address] [place], [address], 05/30/2024 10:22:14 05/29/2005/30/2024 URINA LYSIS , COMPL ETE pH 6.0 5.0-7. 5 Not Available [facility] ([facility]) [address] [facility], [place], [address], 05/30/2024 10:22:14 05/29/2005/30/2024 URINA LYSIS , COMPL ETE urine-color YELLOW yellow Not Available [facility] ([facility]) [address] [facility], [place], [address], 05/30/2024 10:22:14 05/29/2005/30/2024 URINA LYSIS , COMPL ETE appearance CLOUDY clear abnormal Not Available [facility] ([facility]) [address] [place], [address], 05/30/2024 10:22:14 05/29/2005/30/2024 URINA LYSIS , COMPL ETE WBC esterase 3+ negati ve abnormal Not Available [facility] ([facility]) [address] [place], [address], 05/30/2024 10:22:14 05/29/2005/30/2024 URINA LYSIS , COMPL ETE protein TRACE negati ve/tra ce Not Available [facility] ([facility]) [address] [place], [address], 05/30/2024 10:22:14 05/29/2005/30/2024 URINA LYSIS , COMPL ETE glucose NEGATI VE negati ve Not Available [facility] ([facility]) [address] [place], [address], 05/30/2024 10:22:14 05/29/20 24 05/30/2024 URINA LYSIS , COMPL ETE ketones NEGATI VE negati ve Not Available [facility] ([facility]) [address] [place], [address], 05/30/2024 10:22:14 05/29/2005/30/2024 URINA LYSIS , COMPL ETE occult blood NEGATI VE negati ve Not Available [facility] ([facility]) [address] [place], [address], 05/30/2024 10:22:14 05/29/2005/30/2024 URINA LYSIS , COMPL ETE bilirubin NEGATI VE negati ve Not Available [facility] ([facility]) [address] [place], [address], 05/30/2024 10:22:14 05/29/2005/30/2024 URINA LYSIS , COMPL ETE urobilinogen ,semi-qn 0.2 mg/dL 0.2-1. 0 Not Available [facility] ([facility]) [address] [place], [address], 05/30/2024 10:22:14 05/29/20 24 05/30/2024 URINA LYSIS , COMPL ETE nitrite, urine NEGATI VE negati ve Not Available [facility] ([facility]) [address] [place], [address], 05/30/2024 10:22:14 05/29/2005/30/2024 URINA LYSIS , COMPL ETE microscopic examination SEE BELOW: Micro scopi c was indic ated and was perfo rmed. Not Available [facility] ([facility]) [address] [place], [address], 05/30/2024 10:22:14 05/29/20 24 05/30/2024 CBC WITH DIFFE RENTI AL/PL ATELE T WBC 7.6 x10e3 /uL 3.4-10 .8 Not Available [facility] ([facility]) [address] [facility], [place], [address], 05/30/2024 10:22:16 05/29/20 24 05/30/2024 CBC WITH DIFFE RENTI AL/PL ATELE T RBC 4.33 x10e6 /uL 3.77-5 .28 Not Available [facility] ([facility]) [address] [facility], [place], [address], 05/30/2024 10:22:16 05/29/2005/30/2024 CBC WITH DIFFE RENTI AL/PL ATELE T hemoglobin 12.2 g/dL 11.1-1 5.9 Not Available [facility] ([facility]) [address] [facility], [place], [address], 05/30/2024 10:22:16 05/29/20 24 05/30/2024 CBC WITH DIFFE RENTI AL/PL ATELE T hematocrit 38.1 % 34.0-4 6.6 Not Available [facility] ([facility]) [address] [place], [address], 05/30/2024 10:22:16 05/29/20 24 05/30/2024 CBC WITH DIFFE RENTI AL/PL ATELE T MCV 88 fL 79-97 Not Available [facility] ([facility]) [address] [place], [address], 05/30/2024 10:22:16 05/29/2005/30/2024 CBC WITH DIFFE RENTI AL/PL ATELE T MCH 28.2 pg 26.6-3 3.0 Not Available [facility] ([facility]) [address] [place], [address], 05/30/2024 10:22:16 05/29/20 24 05/30/2024 CBC WITH DIFFE RENTI AL/PL ATELE T MCHC 32.0 g/dL 31.5-3 5.7 Not Available [facility] ([facility]) [address] [facility], [place], [address], 05/30/2024 10:22:16 05/29/20 24 05/30/2024 CBC WITH DIFFE RENTI AL/PL ATELE T RDW 13.0 % 11.7-1 5.4 Not Available [facility] ([facility]) [address] [facility], [place], [address], 05/30/2024 10:22:16 05/29/20 24 05/30/2024 CBC WITH DIFFE RENTI AL/PL ATELE T platelets 399 x10e3 /uL 150-45 0 Not Available [facility] ([facility]) [address] [facility], [place], [address], 05/30/2024 10:22:16 05/29/20 24 05/30/2024 CBC WITH DIFFE RENTI AL/PL ATELE T neutrophils 72 % notest ab. Not Available [facility] ([facility]) [address] [facility], [place], [address], 05/30/2024 10:22:16 05/29/20 24 05/30/2024 CBC WITH DIFFE RENTI AL/PL ATELE T lymphs 15 % notest ab. Not Available [facility] ([facility]) [address] [facility], [place], [address], 05/30/2024 10:22:16 05/29/20 24 05/30/2024 CBC WITH DIFFE RENTI AL/PL ATELE T monocytes 11 % notest ab. Not Available [facility] ([facility]) [address] [facility], [place], [address], 05/30/2024 10:22:16 05/29/20 24 05/30/2024 CBC WITH DIFFE RENTI AL/PL ATELE T eos 1 % notest ab. Not Available [facility] ([facility]) [address] [facility], [place], [address], 05/30/2024 10:22:16 05/29/2005/30/2024 CBC WITH DIFFE RENTI AL/PL ATELE T basos 1 % notest ab. Not Available [facility] ([facility]) [address] [facility], [place], [address], 05/30/2024 10:22:16 05/29/20 24 05/30/2024 CBC WITH DIFFE RENTI AL/PL ATELE T neutrophils (absolute) 5.4 x10e3 /uL 1.4-7. 0 Not Available [facility] ([facility]) [address] [facility], [place], [address], 05/30/2024 10:22:16 05/29/20 24 05/30/2024 CBC WITH DIFFE RENTI AL/PL ATELE T lymphs (absolute) 1.2 x10e3 /uL 0.7-3. 1 Not Available [facility] ([facility]) [address] [facility], [place], [address], 05/30/2024 10:22:16 05/29/20 24 05/30/2024 CBC WITH DIFFE RENTI AL/PL ATELE T monocytes(ab solute) 0.8 x10e3 /uL 0.1-0. 9 Not Available [facility] ([facility]) [address] [facility], [place], [address], 05/30/2024 10:22:16 05/29/20 24 05/30/2024 CBC WITH DIFFE RENTI AL/PL ATELE T eos (absolute) 0.1 x10e3 /uL 0.0-0. 4 Not Available [facility] ([facility]) [address] [facility], [place], [address], 05/30/2024 10:22:16 05/29/20 24 05/30/2024 CBC WITH DIFFE RENTI AL/PL ATELE T baso (absolute) 0.1 x10e3 /uL 0.0-0. 2 Not Available [facility] ([facility]) [address] [facility], [place], [address], 05/30/2024 10:22:16 05/29/20 24 05/30/2024 CBC WITH DIFFE RENTI AL/PL ATELE T immature granulocytes 0 % notest ab. Not Available [facility] ([facility]) [address] [facility], [place], [address], 05/30/2024 10:22:16 05/29/20 24 05/30/2024 CBC WITH DIFFE RENTI AL/PL ATELE T immature grans (abs) 0.0 x10e3 /uL 0.0-0. 1 Not Available [facility] ([facility]) [address] [facility], [place], [address], 05/30/2024 10:22:16 08/07/20 24 08/08/2024 COMP. METAB OLIC PANEL (14) glucose 103 mg/dL 70-99 above high normal Not Available [facility] ([facility]) [address] [facility] [place], [address], 08/09/2024 06:42:37 08/07/20 24 08/08/2024 COMP. METAB OLIC PANEL (14) BUN 8 mg/dL 8-27 Not Available [facility] ([facility]) [address] [place], [address], 08/09/2024 06:42:37 08/07/20 24 08/08/2024 COMP. METAB OLIC PANEL (14) creatinine 0.61 mg/dL 0.57-1 .00 Not Available [facility] ([facility]) [address] [place], [address], 08/09/2024 06:42:37 08/07/20 24 08/08/2024 COMP. METAB OLIC PANEL (14) eGFR 88 mL/mi n/1.7 3 >59 Not Available [facility] ([facility]) [address] [facility], [place], [address], 08/09/2024 06:42:37 08/07/20 24 08/08/2024 COMP. METAB OLIC PANEL (14) BUN/creatini ne ratio 13 12-28 Not Available [facility] ([facility]) [address] [facility], [place], [address], 08/09/2024 06:42:37 08/07/20 24 08/08/2024 COMP. METAB OLIC PANEL (14) sodium 139 mmol/ L 134-14 4 Not Available [facility] ([facility]) [address] [facility], [place], [address], 08/09/2024 06:42:37 08/07/20 24 08/08/2024 COMP. METAB OLIC PANEL (14) potassium 4.5 mmol/ L 3.5-5. 2 Not Available [facility] ([facility]) [address] [facility], [place], [address], 08/09/2024 06:42:37 08/07/20 24 08/08/2024 COMP. METAB OLIC PANEL (14) chloride 100 mmol/ L 96-106 Not Available [facility] ([facility]) [address] [facility], [place], [address], 08/09/2024 06:42:37 08/07/20 24 08/08/2024 COMP. METAB OLIC PANEL (14) carbon dioxide, total 24 mmol/ L 20-29 Not Available [facility] ([facility]) [address] [facility], [place], [address], 08/09/2024 06:42:37 08/07/20 24 08/08/2024 COMP. METAB OLIC PANEL (14) calcium 9.6 mg/dL 8.7-10 .3 Not Available [facility] ([facility]) [address] [facility], [place], [address], 08/09/2024 06:42:37 08/07/20 24 08/08/2024 COMP. METAB OLIC PANEL (14) protein, total 7.4 g/dL 6.0-8. 5 Not Available [facility] ([facility]) [address] [facility], [place], [address], 08/09/2024 06:42:37 08/07/20 24 08/08/2024 COMP. METAB OLIC PANEL (14) bilirubin, total 0.3 mg/dL 0.0-1. 2 Not Available [facility] ([facility]) [address] [facility], [place], [address], 08/09/2024 06:42:37 08/07/20 24 08/08/2024 COMP. METAB OLIC PANEL (14) alkaline phosphatase 53 IU/L 44-121 Not Available [facility] ([facility]) [address] [facility], [place], [address], 08/09/2024 06:42:37 08/07/20 24 08/08/2024 COMP. METAB OLIC PANEL (14) AST (SGOT) 21 IU/L 0-40 Not Available [facility] ([facility]) [address] [facility], [place], [address], 08/09/2024 06:42:37 08/07/20 24 08/08/2024 COMP. METAB OLIC PANEL (14) ALT (SGPT) 12 IU/L 0-32 Not Available [facility] ([facility]) [address] [facility], [place], [address], 08/09/2024 06:42:37 08/07/20 24 08/09/2024 COMP. METAB OLIC PANEL (14) albumin 3.7 g/dL 3.7-4. 7 Not Available [facility] ([facility]) [address] [facility], [place], [address], 08/09/2024 06:42:37 08/07/20 24 08/09/2024 COMP. METAB OLIC PANEL (14) globulin, total 3.7 g/dL 1.5-4. 5 Not Available [facility] ([facility]) [address] [place], [address], 08/09/2024 06:42:37 08/07/20 24 08/08/2024 CORTI RIGO cortisol 19.5 ug/dL 6.2-19 .4 above high normal Pleas e Note: The refer ence inter maximiliano and nael ing for this test is for an AM colle ction . If this is a PM colle ction pleas e use: Corti rigo PM: 2.3-1 1.9 Not Available [facility] ([facility]) [address] [place], [address], 08/09/2024 06:42:38 08/07/20 24 08/08/2024 TSH TSH 1.550 uIU/m L 0.450- 4.500 Not Available [facility] ([facility]) [address] [place], [address], 08/09/2024 06:42:39 08/07/20 24 08/08/2024 CBC WITH DIFFE RENTI AL/PL ATELE T WBC 9.4 x10e3 /uL 3.4-10 .8 Not Available [facility] ([facility]) [address] [place], [address], 08/09/2024 06:42:40 08/07/20 24 08/08/2024 CBC WITH DIFFE RENTI AL/PL ATELE T RBC 4.40 x10e6 /uL 3.77-5 .28 Not Available [facility] ([facility]) [address] [place], [address], 08/09/2024 06:42:40 08/07/20 24 08/08/2024 CBC WITH DIFFE RENTI AL/PL ATELE T hemoglobin 11.7 g/dL 11.1-1 5.9 Not Available [facility] ([facility]) [address] [facility], [place], [address], 08/09/2024 06:42:40 08/07/20 24 08/08/2024 CBC WITH DIFFE RENTI AL/PL ATELE T hematocrit 36.7 % 34.0-4 6.6 Not Available [facility] ([facility]) [address] [facility], [place], [address], 08/09/2024 06:42:40 08/07/20 24 08/08/2024 CBC WITH DIFFE RENTI AL/PL ATELE T MCV 83 fL 79-97 Not Available [facility] ([facility]) [address] [facility], [place], [address], 08/09/2024 06:42:40 08/07/20 24 08/08/2024 CBC WITH DIFFE RENTI AL/PL ATELE T MCH 26.6 pg 26.6-3 3.0 Not Available [facility] ([facility]) [address] [facility], [place], [address], 08/09/2024 06:42:40 08/07/20 24 08/08/2024 CBC WITH DIFFE RENTI AL/PL ATELE T MCHC 31.9 g/dL 31.5-3 5.7 Not Available [facility] ([facility]) [address] [facility], [place], [address], 08/09/2024 06:42:40 08/07/20 24 08/08/2024 CBC WITH DIFFE RENTI AL/PL ATELE T RDW 13.3 % 11.7-1 5.4 Not Available [facility] ([facility]) [address] [place], [address], 08/09/2024 06:42:40 08/07/20 24 08/08/2024 CBC WITH DIFFE RENTI AL/PL ATELE T platelets 508 x10e3 /uL 150-45 0 above high normal Not Available [facility] ([facility]) [address] [facility], [place], [address], 08/09/2024 06:42:40 08/07/20 24 08/08/2024 CBC WITH DIFFE RENTI AL/PL ATELE T neutrophils 74 % notest ab. Not Available [facility] ([facility]) [address] [facility], [place], [address], 08/09/2024 06:42:40 08/07/20 24 08/08/2024 CBC WITH DIFFE RENTI AL/PL ATELE T lymphs 12 % notest ab. Not Available [facility] ([facility]) [address] [facility], [place], [address], 08/09/2024 06:42:40 08/07/20 24 08/08/2024 CBC WITH DIFFE RENTI AL/PL ATELE T monocytes 11 % notest ab. Not Available [facility] ([facility]) [address] [facility], [place], [address], 08/09/2024 06:42:40 08/07/20 24 08/08/2024 CBC WITH DIFFE RENTI AL/PL ATELE T eos 1 % notest ab. Not Available [facility] ([facility]) [address] [facility], [place], [address], 08/09/2024 06:42:40 08/07/20 24 08/08/2024 CBC WITH DIFFE RENTI AL/PL ATELE T basos 1 % notest ab. Not Available [facility] ([facility]) [address] [facility], [place], [address], 08/09/2024 06:42:40 08/07/20 24 08/08/2024 CBC WITH DIFFE RENTI AL/PL ATELE T neutrophils (absolute) 7.2 x10e3 /uL 1.4-7. 0 above high normal Not Available [facility] ([facility]) [address] [facility], [place], [address], 08/09/2024 06:42:40 08/07/20 24 08/08/2024 CBC WITH DIFFE RENTI AL/PL ATELE T lymphs (absolute) 1.1 x10e3 /uL 0.7-3. 1 Not Available [facility] ([facility]) [address] [facility], [place], [address], 08/09/2024 06:42:40 08/07/20 24 08/08/2024 CBC WITH DIFFE RENTI AL/PL ATELE T monocytes(ab solute) 1.0 x10e3 /uL 0.1-0. 9 above high normal Not Available [facility] ([facility]) [address] [place], [address], 08/09/2024 06:42:40 08/07/20 24 08/08/2024 CBC WITH DIFFE RENTI AL/PL ATELE T eos (absolute) 0.1 x10e3 /uL 0.0-0. 4 Not Available [facility] ([facility]) [address] [facility], [place], [address], 08/09/2024 06:42:40 08/07/20 24 08/08/2024 CBC WITH DIFFE RENTI AL/PL ATELE T baso (absolute) 0.1 x10e3 /uL 0.0-0. 2 Not Available [facility] ([facility]) [address] [facility], [place], [address], 08/09/2024 06:42:40 08/07/20 24 08/08/2024 CBC WITH DIFFE RENTI AL/PL ATELE T immature granulocytes 1 % notest ab. Not Available [facility] ([facility]) [address] [facility], [place], [address], 08/09/2024 06:42:40 08/07/20 24 08/08/2024 CBC WITH DIFFE RENTI AL/PL ATELE T immature grans (abs) 0.1 x10e3 /uL 0.0-0. 1 Not Available [facility] ([facility]) [address] [place], [address], 08/09/2024 06:42:40 08/07/20 24 08/08/2024 TRIIO DOTHY ANGEL E (T3), FREE triiodothyro nine (T3), free 2.6 pg/mL 2.0-4. 4 Not Available [facility] ([facility]) [address] [facility], [place], [address], 08/09/2024 06:42:41 08/07/20 24 08/08/2024 T4,FR EE(DI RECT) T4,free(dire ct) 1.21 NG/dL 0.82-1 .77 Not Available [facility] ([facility]) [address] [place], [address], 08/09/2024 06:42:42 06/09/20 24 06/09/2024 CT, chest + abdom en + pelvi s, w/ contr ast No observ ation record ed. [facility] [address] [place], [address], 06/11/2024 10:36:49 09/22/19 25 09/22/2024 CT, abdom en + pelvi s, w/ contr ast No observ ation record ed. [facility] [address] [place], [address], 09/25/2024 16:41:32 Result Notes None recorded. Problems Name Problem SNOMED Code Status Onset Date Resolution Date Notes Provider Name and Address Organization Details Recorded Time Fatigue 89875642 Active 2023 Nicolette Blank MD Attn: Milton ibarra,[address] [facility], [place], [address], [facility] 14:27:20 Essential hypertension 59840485 Active 2023 Nicolette Blank MD Attn: Milton ibarra,[address] [facility], [place], [address], [place] - [facility] 4 14:27:23 Pneumonia 521680132 Active 2023 Nicolette Blank MD Attn: Princetate ibarra,[address] [facility], [place], [address], [place] [facility] 4 14:27:25 Chronic pain 60586218 Active 2023 Nicolette Blank MD Attn: Milton stacey,[address] [facility], [place], [address], [place] [facility] 4 14:27:27 Anxiety 13303632 Active 2023 Nicolette Blank MD Attn: Milton stacey,[address] [place], [address], [place] [facility] 4 14:27:28 Gastroesophage al reflux disease without esophagitis 823663453 Active 2023 Nicolette Blank MD Attn: Milton stacey,[address] [place], [address], [place] [facility] 4 14:27:29 Osteoporosis 39959606 Active 2023 Nicolette Blank MD Attn: Milton stacey,[address] [place], [address], [place] [facility] 4 14:27:30 History of polyp of colon 379389642 Active 2023 Nicolette Blank MD Attn: Milton ibarra,[address] [place], [address], [place] [facility] 4 14:27:33 Spinal stenosis in cervical region 54236712 Active 2023 Nicolette Blank MD Attn: Milton ibarra,[address] [facility], [place], [address], [place] [facility] 4 14:27:34 Pleural effusion 90621738 Active 2023 Jay Rosenbaum MA null, [place] - [facility] 4 12:43:02 Abdominal pain 10451977 Active 2023 Jay Rosenbaum MA null, [facility] 12:44:36 Dyspnea on exertion 50301094 Active 2023 Jay Rosenbaum MA meenu, [place] - [facility] 12:37:50 Problem Notes None recorded. Procedures Surgical History Date Name Laterality Status Provider Name and Address Organization Details Recorded Time 08/19/19 total knee replacement completed Marily Klaus [place] - [facility] 12/11/2023 14:07:06 Cholecystectomy completed Marily Enrique [place] - [facility] 12/11/2023 14:06:43 Imaging Results Imaging Date Name Status [facility] Details LastModified Time 06/09/2024 CT, chest + abdomen + pelvis, w/ contrast completed [facility] [address] [place], [address], 06/11/2024 10:36:49 09/22/2024 CT, abdomen + pelvis, w/ contrast completed [facility] [address] [place], [address], 09/25/2024 16:41:32 Procedure Notes None recorded. Medical Equipment None Reported. Allergies Allergen ID Allergen Name Allergen Category Reaction Reaction Severity Criticality Documentation Date Start Date Code Code System Note Provider Name and Address Organization Details Recorded Time [id number] Substance with sulfonami de structure and antibacte rial mechanism of action (substanc e) medicatio n hives Not available Not available 10/15/2023 21454 8003 SNOMED Not Available Not Available Not Available Medications Name Sig Start Date Stop Date Status Note LastModified by Organization Details LastModified Time losartan 50 mg tablet TAKE 1 TABLET BY MOUTH TWICE DAILY 2024 active Not Available Not Available Not Avai lable amoxicilli n 500 mg capsule TAKE 4 CAPSULES BY MOUTH 1 HOUR BEFORE DENTAL APPOINTME NT 10/15 completed Not Available Not Available Not Available atorvastat in 40 mg tablet Take 1 tablet every day by oral route. 11/28 completed Not Available Not Available Not Available atorvastat in 10 mg tablet TAKE 1 TABLET BY MOUTH EVERY DAY 10/15 completed Not Available Not Available Not Available lisinopril 20 mg-hydroch lorothiazi de 12.5 mg tablet TAKE 1 TABLET BY MOUTH EVERY DAY 04/08 completed cough Not Available Not Available Not Available azithromyc in 250 mg tablet TAKE 2 TABLETS BY MOUTH FOR 1 DAY THEN TAKE 1 TABLET BY MOUTH DAILY FOR 4 DAYS 05/29 completed Not Available Not Available Not Available tizanidine 4 mg tablet TAKE 1 TABLET BY MOUTH EVERY 6 HOURS active Not Available Not Available No t Available brinzolami de 1 % eye drops,susp ension SHAKE LIQUID AND INSTILL 1 DROP IN BOTH EYES TWICE DAILY active Not Available Not Available No t Available prednisone 20 mg tablet TAKE 2 TABLETS BY MOUTH EVERY DAY WITH FOOD FOR 5 DAYS 05/29 completed Not Available Not Available Not Available potassium chloride ER 10 mEq tablet,ext ended release TAKE 1 TABLET BY MOUTH EVERY DAY active Not Available Not Available No t Available nifedipine ER 30 mg tablet,ext ended release TAKE 1 TABLET BY MOUTH EVERY DAY active Not Available Not Available No t Available ciprofloxa ozzie 500 mg tablet TAKE 1 TABLET BY MOUTH TWICE DAILY 10/15 completed Not Available Not Available Not Available tramadol 50 mg tablet TAKE 1 TABLET BY MOUTH THREE TIMES DAILY NEEDED 11/28 completed Not Available Not Available Not Available amoxicilli n 500 mg tablet TAKE 4 TABLETS BY MOUTH 1 HOUR PRIOR TO DENTAL APPOINTME NT 07/03 completed Not Available Not Available Not Available pantoprazo le 20 mg tablet,del ayed release TAKE 1 TABLET BY MOUTH EVERY DAY active Not Available Not Available No t Available ketorolac 0.5 % eye drops INSTILL 1 DROP INTO THE LEFT EYE THREE TIMES DAILY X 2 WEEKS 05/29 completed Not Available Not Available Not Available methenamin e hippurate 1 gram tablet TAKE 1 TABLET BY MOUTH TWICE DAILY active Not Available Not Available No t Available meclizine 25 mg tablet take 1 tablet by mouth twice daily as needed active Not Available Not Available No t Available pantoprazo le 40 mg tablet,del ayed release TAKE 1 TABLET BY MOUTH TWICE DAILY FOR 8 WEEKS active Not Available Not Available No t Available hydrochlor othiazide 12.5 mg capsule TAKE 1 CAPSULE BY MOUTH EVERY DAY 02/27 completed Not Available Not Available Not Available montelukas t 10 mg tablet TAKE 1 TABLET BY MOUTH EVERY DAY active Not Available Not Available No t Available cefuroxime axetil 500 mg tablet TAKE 1 TABLET BY MOUTH EVERY 12 HOURS FOR 14 DAYS 11/28 completed Not Available Not Available Not Available methylpred nisolone 4 mg tablets in a dose pack FOLLOW PACKAGE DIRECTION S 05/29 completed Not Available Not Available Not Available timolol maleate 0.5 % eye drops PLACE 1 DROP INTO RIGHT EYE TWICE DAILY active Not Available Not Available No t Available lisinopril 40 mg tablet Take 1 tablet every day by oral route. 02/27 completed Not Available Not Available Not Available doxycyclin e hyclate 100 mg tablet TAKE 1 TABLET BY MOUTH TWICE DAILY FOR 10 DAYS 10/15 completed Not Available Not Available Not Available diazepam 5 mg tablet TAKE 1 TABLET BY MOUTH TWICE DAILY active Not Available Not Available No t Available amoxicilli n 875 mg-potassi um clavulanat e 125 mg tablet TAKE 1 TABLET BY MOUTH EVERY 12 HOURS FOR 10 DAYS 10/15 completed Not Available Not Available Not Available nitrofuran toin monohydrat e/macrocry stals 100 mg capsule TAKE 1 CAPSULE BY MOUTH TWICE DAILY active Not Available Not Available No t Available nebivolol 5 mg tablet TAKE 1 TABLET BY MOUTH EVERY DAY 06/18 completed Not Available Not Available Not Available Rocklatan 0.02 %-0.005 % eye drops INSTILL 1 DROP IN BOTH EYES EVERY EVENING active Not Available Not Available No t Available Vitals Date Recorded Body height Body mass index (BMI) Body weight Heart rate Oxygen saturation Oxygen saturation in Arterial blood by Pulse oximetry Systolic blood pressure Diastolic blood pressure Provider Name and Address Organization Details Last Updated DateTime 4 152.4 cm 24.2 kg/m2 34577.8 1 g 86 /min 94 % 94 % 140 mm[Hg] 98 mm[Hg] [facility] - [facility] 4 11:41:38 Date Recorded Body height Heart rate Oxygen saturation Oxygen saturation in Arterial blood by Pulse oximetry Systolic blood pressure Diastolic blood pressure Provider Name and Address Organization Details Last Updated DateTime 4 152.4 cm 86 /min 100 % 100 % 162 mm[Hg] 90 mm[Hg] [place] - [facility] 4 11:52:01 Date Recorded Body height Body mass index (BMI) Body weight Heart rate Oxygen saturation Oxygen saturation in Arterial blood by Pulse oximetry Systolic blood pressure Diastolic blood pressure Provider Name and Address Organization Details Last Updated DateTime 4 152.4 cm 23.8 kg/m2 68772.2 7 g 83 /min 95 % 95 % 150 mm[Hg] 90 mm[Hg] Albaro Ortega MA [facility] 4 10:54:07 Date Recorded Body height Body mass index (BMI) Body weight Heart rate Oxygen saturation Oxygen saturation in Arterial blood by Pulse oximetry Systolic blood pressure Diastolic blood pressure Provider Name and Address Organization Details Last Updated DateTime 4 152.4 cm 23 kg/m2 03506.8 2 g 70 /min 93 % 93 % 142 mm[Hg] 68 mm[Hg] Adeline Dunbar MA [facility] 4 11:41:34 Date Recorded Body height Body mass index (BMI) Body weight Heart rate Oxygen saturation Oxygen saturation in Arterial blood by Pulse oximetry Systolic blood pressure Diastolic blood pressure Provider Name and Address Organization Details Last Updated DateTime 5 152.4 cm 21.7 kg/m2 87627.7 5 g 98 /min 93 % 93 % 142 mm[Hg] 70 mm[Hg] Adeline Dunbar MA [facility] 5 16:20:08 Social History Question Answer Notes LastModified by Organizat ion Details LastModified Time Tobacco Smoking Status Never Smoker Adeline Dunbar MA [facility] 11/29/2023 11:45:44 Do You Have An Advance Directive? Yes Information n ot available 12/11/2023 What Is Your Level Of Alcohol Consumption? None Information not available 10/15/2023 Are You Blind Or Do You Have Difficulty Seeing? No Information n ot available 10/15/2023 What Is Your Level Of Caffeine Consumption? Moderate Information not available 10/15/2023 In The 14 Days Before Symptom Onset, Have You Had Close Contact With A Laboratory-confirm ed COVID-19 While That Case Was Ill? No Information n ot available 05/29/2024 In The 14 Days Before Symptom Onset, Have You Had Close Contact With A Person Who Is Under Investigation For COVID-19 While That Person Was Ill? No Information not available 05/29/2024 Have You Been To An Area Known To Be High Risk For COVID-19? No Information not available 05/29/2024 Are You Currently Employed? No Information not available 12/11/2023 Are You Deaf Or Do You Have Serious Difficulty Hearing? No Information not available 10/15/2023 What Type Of Diet Are You Following? REGULAR Information n ot available 10/15/2023 In The Past 7 Days, How Many Days Did You Exercise? 7 Information not available 12/11/2023 How Intense Was Your Typical Exercise? Light (stretching Or Slow Walking) Information not available 12/11/2023 In The Past 7 Days, How Much Pain Have You Amity? Some Information not available 12/11/2023 In General, Would You Say You Health Is: Good Information not available 12/11/2023 How Would You Describe The Condition Of Your Mouth And Teeth- Including False Teeth Or Dentures? Good Information n ot available 12/11/2023 Each Night, How Many Hours Of Sleep Do You Get? 8 Information no t available 12/11/2023 Has Anyone Ever Told You That You Snore? No Information not available 12/11/2023 In The Past 7 Days, How Often Have You Amity Sleepy In The Daytime? Never Information not available 12/11/2023 # Alcohol Drinks Per Week 0 Information not available 12/11/2023 What Was The Date Of Your Most Recent Tobacco Screening? 09/16/2024 [email or web address] Information not available 09/16/2024 What Is Your Relationship Status? Information not available 10/15/2023 Do You Use Your Seat Belt Or Car Seat Routinely? Yes Information not available 10/15/2023 Do You Have Smoke And Carbon Monoxide Detectors In Your Home? Yes Information not available 10/15/2023 Do You Feel Stressed (tense, Restless, Nervous, Or Anxious, Or Unable To Sleep At Night)? [id number] Information not available 12/11/2023 Do You Use Any Illicit Or Recreational Drugs? No Information not available 10/15/2023 Do You Use Sunscreen Routinely? Yes Information not available 10/15/2023 Has Tobacco Cessation Counseling Been Provided? No Information not available 10/15/2023 Do You Or Have You Ever Used Any Other Forms Of Tobacco Or Nicotine? No Information not available 10/15/2023 Sex: Female Functional Status Question Answer Note LastModified by Organization D etails LastModified Time Are you able to care for yourself? Yes Information not available 10/15/2023 What is your exercise level? Moderate walk Information not available 12/11/2023 Mental Status None recorded. Family History Relationship Description Onset Age of this Age Resolved Age Notes LastModified by Organization Details LastModified Time Mother Heart disease Not available 2023 14:03:28 Father Malignant tumor of colon Not available 2023 14:03:39 Father Malignant tumor of lung Not available 2023 14:03:46 Medical History Condition Response Coronary Artery Disease N Other N Atrial Fibrillation N High Blood Pressure Y Thyroid Problems N Kidney or Bladder Problems Y Depression N COPD N Blood Clots N GI Problems Y Skin Problems N Anemia N Heart Attack ([place]) N Diabetes N Anxiety Disorder N Muscle, Joint, or Bone Problems N Seizures/Epilepsy N Acid Reflux (GERD) Y Cancer N Stroke N Allergies Y Asthma N High Cholesterol Y Hepatitis N Liver Disease N Headaches N Osteoporosis N Heart Failure N Gynecological History Statement/Question Response If Post Menopausal, Age at Menopause 54 Current Control Method Menopause Obstetrics History GPAL:G 0 P 0 0 0 0 Immunizations Vaccine Type Date Status Note Provider Nam e and Address Organization Details Recorded Time Influenza, adjuvanted, quadrivalent, PF 2 completed Marily Enrique null, [place] - [facility] 12/10/2023 10:16:40 Influenza, adjuvanted, quadrivalent, PF 1 completed Mar[place] En[place] [facility] 12/10/2023 10:16:40 COVID-19, mRNA, LNP-S, PF, 100 mcg/0.5mL dose or 50 mcg/0.25mL dose 1 completed Mar[place] En[place], [place] [facility] 12/10/2023 10:16:40 COVID-19, mRNA, LNP-S, PF, 100 mcg/0.5mL dose or 50 mcg/0.25mL dose 1 completed Marily [place] null, [place] - [facility] 12/10/2023 10:16:40 COVID-19, mRNA, LNP-S, PF, 100 mcg/0.5mL dose or 50 mcg/0.25mL dose 1 completed Marily [place] null, [place] - [facility] 12/10/2023 10:16:40 COVID-19, mRNA, LNP-S, PF, 100 mcg/0.5mL dose or 50 mcg/0.25mL dose 1 completed Marily [place], [place] [facility] 12/10/2023 10:16:40 pneumococcal polysaccharide PPV23 4 completed Marily [place] [facility] 12/10/2023 10:16:40 Influenza, high-dose, trivalent, PF 4 completed Marily [place] [facility] 12/10/2023 10:16:40 Influenza, high-dose, trivalent, PF 8 completed Marily [place] [facility] 12/10/2023 10:16:40 Influenza, high-dose, trivalent, PF 9 completed Marily [place] [facility] 12/10/2023 10:16:40 Influenza, high-dose, trivalent, PF 6 completed Marily [place] [facility] 12/10/2023 10:16:40 Influenza, high-dose, trivalent, PF 6 completed Marily [place] [facility] 12/10/2023 10:16:41 Influenza, high-dose, trivalent, PF 5 completed Marily [place] [facility] 12/10/2023 10:16:41 Influenza, high-dose, trivalent, PF 7 completed Marily [place] [facility] 12/10/2023 10:16:41 Influenza, split virus, trivalent, preservative 0 completed Marily [place], [place] [facility] 12/10/2023 10:16:41 Influenza, split virus, trivalent, preservative 1 completed Marily corrigan [place] - [facility] 12/10/2023 10:16:41 Past Encounters Encounter ID Performer Location Encounter Start Date Encounter Closed Date Diagnosis/Indication Diagnosis SNOMED-CT Code Diagnosis ICD10 Code Diagnosis Note [id number] MD Lane Fry (Adult Med) [address] [place] [address] 10/15/2023 11:53:51 10/15/2023 13:12:16 Fatigue 04886636 R53.83 Essential hypertension 73899401 I10 Pneumonia 816903411 J18. 9 Chronic pain 78779156 G8 9.29 Anxiety 90809431 F41.9 Gastroesop hageal reflux disease without esophagitis 371367322 K21.9 Osteoporosis 46066858 M8 1.0 History of polyp of colon 828255735 Z86.010 Spinal zana nosis in cervical region 60230194 M48.[id number] Fry (Adult Med) [address] [place] [address] 10/30/2023 14:32:29 10/30/2023 17:15:47 Dyspnea on exertion 51941750 R06.[id number] Fry (Adult Med) [address] [place] [address] 11/29/2023 11:22:00 11/29/2023 12:53:28 Pleural effusion 19078651 J90 [id number] MD Lane Fry (Adult Med) [address] [place] [address] 0 12/11/2023 13:34:33 12/11/2023 14:43:15 Adult health examination 174952590 Z00.00 Health Risk Assessment collected and reviewed [id number] MD Lane Fry (Adult Med) [address] [place] [phone] 02/28/2024 11:26:37 02/28/2024 12:56:02 Overweight 871046391 E66.3 Abdominal pain 71585921 R10.9 Essential hypertension 15738091 I10 Gastroesop hageal reflux disease without esophagitis 546259890 K21.9 Anxiety 63259807 F41.[id number] Fry (Adult Med) [address] [place] [address] 0 05/29/2024 11:26:08 05/29/2024 12:49:14 Overweight 530694915 E66.3 Abdominal pain 29464999 R10.9 Pleural effusion 1769240 8 J90 Anxiety 86223049 F41.9 Essential hypertension 61072710 I10 Gastroesop hageal reflux disease without esophagitis 016834373 K21.9 [id number] MORAIMA Durand (Adult Med) [address] [place] [address] 0 06/19/2024 11:21:37 06/19/2024 12:10:33 Essential hypertension 87384315 I10 [id number] Fry (Adult Med) [address] [place] [address] 0 07/03/2024 10:41:31 07/03/2024 11:11:12 Nausea 384978980 R11.0 Essential hypertension 64868441 I10 [id number] MD [facility] Fry (Adult Med) [address] [place] [phone] 0 08/07/2024 11:15:59 08/07/2024 12:36:26 Body mass index 20-24 - normal 504249496 Z68.23 Dyspnea on exertion 6084 5006 R06.09 Fatigue 38285066 R53.83 Abdominal pain 07523880 R10.[id number] Fry (Adult Med) [address] [place] [address] 0 09/16/2024 15:44:58 09/16/2024 17:14:33 Body mass index 20-24 - normal 616134852 Z68.21 Abdominal pain 93797949 R10.9 Dyspnea on exertion 6084 5006 R06.09 Health Concerns Section Related Observation LastModified by Organization Detai ls LastModified Time None Recorded Concern Status LastModified by Organization Details LastModified Time None Recorded Advance Directives Directive Y: Payers Encounter Date Sequence Insurance Name Policy Number Policy Rojas Covered Member ID Rojas Member ID Guarantor Name 05/29/2024 1 [place] Parisa L Carrillo [id number] Parisa Carrillo 05/29/2024 2 [employer] [place] (MEDICARE SUPPLEMENT) Parisa L Carrillo [id number] Parisa Carrillo 06/19/2024 1 [place] Parisa L Carrillo [id number] Parisa Carrillo 06/19/2024 2 [employer] [place] (MEDICARE SUPPLEMENT) Parisa L Carrillo [id number] Parisa Carrillo 07/03/2024 1 [place] Parisa L Carrillo [id number] Parisa Carrillo 07/03/2024 2 [employer] [place] (MEDICARE SUPPLEMENT) Parisa L Carrillo [id number] Parisa Carrillo 08/07/2024 1 [place] Parisa L Carrillo [id number] Parisa Carrillo 08/07/2024 2 [employer] [place] (MEDICARE SUPPLEMENT) Parisa L Carrillo [id number] Parisa Carrillo 09/16/2024 1 [place] Parisa L Carrillo [id number] Parisa Carrillo 09/16/2024 2 [employer] [place] (MEDICARE SUPPLEMENT) Parisa L Carrillo [id number] Parisa Carrillo Notes Date Note Type Note Provider Name and Address Organization Details Recorded Time 05/29/2024 text/html hypertension no headache or dizziness. Anxiety up and down no SI or HI. She has had some epigastric and suprapubic abdominal pain does not wake her up at night but it becomes moderate to severe at times she does taking some Pepto-Bismol and some pantoprazole with some relief. No blood in her stool she has not had any hematemesis. Pain does not radiate no clear-cut exacerbating or alleviating factors. No hematuria or pyuria. She says she feels a little bit like she did when her fluid was coming back with her lungs and she saw Pulmonary this week and they are getting a chest x-ray Nicolette Blank MD Attn: Accounting, [address] [facility], [place], [address], [facility] 05/29/2024 16:51:21 07/03/2024 text/html hypertension sti ll running a little bit high she does not feel good she gets the epigastric and bowel discomfort from time to time but she can not be specific about. She is seeing Pulmonary had some fluid taken off of her lung Nicolette Blank MD Attn: Accounting, 1 [facility], [place], [address], [facility] 07/04/2024 14:06:48 08/07/2024 text/html continues to hav e some nonspecific abdominal discomfort dyspnea on exertion and just fatigue blood pressure is better than what it has been running in the outpatient setting we had increased her losartan to 50 mg daily when her systolics were near [id number] Nicolette Blank MD Attn: Accounting, 1 [facility], [place], [address], [facility] 08/23/2024 17:28:40 09/16/2024 text/html weak losing weig ht short of breath early satiety having a very hard time eating just because she takes a few bites and she is full Nicolette Blank MD Attn: Accounting, 1 [place], [address], [facility] 09/16/2024 22:23:21 OBGyn Episode No OBEpisode recorded.
--- OUTSIDE RECORDS SUMMARY | 2024-09-29 01:00 | XMS_ITS | CONTINUITY OF CARE DOCUMENT ---
Author Name ashele ashlee Address Unknown Organization [facility] Address [address] [facility] [facility] [address] [place] [address] Phone [phone] Care Team Providers Care Internal Combustion Engineer Name Role Phone Mariano Hogan MD Unavailable [phone] NICOLETTE PRAJAPATI MD Unavailable [phone] NICOLETTE PRAJAPATI MD Unavailable [phone] PROBLEMS Condition Status Date Provider Notes Hypertension active Carol Cooper VITAL SIGNS Date Observation Value Provider weight E&M 148 [lb_av] Savanah Salcedo l height E&M 59 [in_i] Savanah selby INSURANCE PROVIDERS Payer name Policy type / Coverage type [employer] party ID [employer] Sc[employer] [id number] [place] MED[place] Medicare [id number] HISTORY OF PROCEDURES Procedure Date Procedure Name Provider Procedure Notes S tatus Stress EKG Mariano Hogan MD complete d
--- OUTSIDE RECORDS SUMMARY | 2024-09-29 01:00 | XMS_ITS | Referral Summary ---
Author Organization [facility] Building [facility] Address [address] [place] [address] Care Team Providers Care Supervisor Instrument Repair Name Role Phone Jackson Blank MD Primary Care Provider [phone] Encounters Date Type Department Care Team Description 09/14/2024 11:25 AM MANAGER EMPLOYMENT Lab [address] Pleural effusion; Restrictive ventilatory defect 09/14/2024 11:00 AM MANAGER EMPLOYMENT Office Visit [facility] Pulmonary at [address] [place] [phone] Rob Lisa MD Restrictive ventilatory defect (Primary Dx); Pleural effusion; Dyspnea on exertion 09/11/2024 1:54 PM MANAGER EMPLOYMENT - 09/11/2024 11:59 PM MANAGER EMPLOYMENT Hospital Encounter [facility] [address] [place] [address] Dyspnea on exertion Discharge Disposition: Discharge to home or self care 09/04/2024 Orders Only [facility] Pulmonary at [address] [address] Rob Lisa MD Dyspnea on exertion (Primary Dx) 09/04/2024 Telephone [facility] Pulmonary at [address] [phone] Yue Trujillo LPN chest x-ray 09/03/2024 3:59 PM MANAGER EMPLOYMENT - 09/03/2024 11:59 PM MANAGER EMPLOYMENT Hospital Encounter [facility] [address] [place] [address] Shortness of breath Discharge Disposition: Discharge to home or self care 09/03/2024 Orders Only [facility] Pulmonary at [address] [phone] Stuart French DO Shortness of breath (Primary Dx) 09/03/2024 2:00 PM MANAGER EMPLOYMENT - 09/03/2024 11:59 PM MANAGER EMPLOYMENT Hospital Encounter [facility] [address] [place] [address] Dyspnea on exertion Discharge Disposition: Discharge to home or self care 09/03/2024 2:00 PM MANAGER EMPLOYMENT - 09/03/2024 11:59 PM MANAGER EMPLOYMENT Hospital Encounter [facility] [address] [place] [address] Dyspnea on exertion Discharge Disposition: Discharge to home or self care 08/05/2024 10:55 AM MANAGER EMPLOYMENT Lab [address] Dyspnea on exertion 08/05/2024 10:15 AM MANAGER EMPLOYMENT Office Visit [facility] Pulmonary at [address] [address] Rob Lisa MD Dyspnea on exertion (Primary Dx); Pleural effusion 07/14/2024 1:15 PM MANAGER EMPLOYMENT Ancillary Procedure [facility] Imaging at [address] [phone] Dyspnea on exertion 07/13/2024 Orders Only [facility] Pulmonary at [address] [address] Rob Lisa MD Dyspnea on exertion (Primary Dx) 07/13/2024 Telephone [facility] Pulmonary at [address] [phone] Asia Anderson LPN Shortness of Breath 06/29/2024 Telephone [facility] Pulmonary at [address] [phone] Yue Trujillo LPN from Last 3 Months Allergies Active Allergy Reactions Criticality Noted Date [...] joint pains, no rashes or skin changes Social History Tobacco Use Types Packs/Day Years [...] on file Legal Sex Female 6:30 AM MANAGER EMPLOYMENT Gender Identity Not on file Sexual Orientation Not on file Last Filed Vital Signs Vital Sign Reading Time Taken Comments Blood Pressure 182/70 09/14/2024 10:45 AM MANAGER EMPLOYMENT Pulse 90 09/14/2024 10:45 AM MANAGER EMPLOYMENT Temperature 35.4 C (95.7 F) 09/14/2024 10:45 AM MANAGER EMPLOYMENT Respiratory Rate 16 06/11/2024 12:58 PM CDT Oxygen Saturation 95% 09/14/2024 10:45 AM MANAGER EMPLOYMENT Inhaled Oxygen Concentration - - Weight 50.6 kg (111 lb 9.6 oz) 09/14/2024 10:45 AM MANAGER EMPLOYMENT Height 152.4 cm (5') 09/14/2024 10:45 AM MANAGER EMPLOYMENT Body Mass Index 21.8 09/14/2024 10:45 AM MANAGER EMPLOYMENT Plan of Treatment Not on file Procedures Procedure Name Priority Date/Time Associated Diagnosis Comments CLINICAL PATHOLOGY REPORT Routine 09/14/2024 11:22 AM MANAGER EMPLOYMENT SHAHID QUALITATIVE WITH REFLEX TO SHAHID QUANTITATIVE Routine 09/14/2024 11:22 AM MANAGER EMPLOYMENT Restrictive ventilatory defect SONI ANTIBODY EVALUATION WITH REFLEX Routine 09/14/2024 11:22 AM MANAGER EMPLOYMENT Restrictive ventilatory defect CYCLIC CITRUL PEPTIDE ANTIBODY, IGG Routine 09/14/2024 11:22 AM MANAGER EMPLOYMENT Restrictive ventilatory defect RHEUMATOID FACTOR Routine 09/14/2024 11: 22 AM MANAGER EMPLOYMENT Restrictive ventilatory defect ERYTHROCYTE SEDIMENTATION RATE Routine 09/14/2024 11:22 AM MANAGER EMPLOYMENT Restrictive ventilatory defect CRP (ACUTE PHASE) Routine 09/14/2024 11: 22 AM MANAGER EMPLOYMENT Restrictive ventilatory defect PROTEIN ELECTROPHORESIS, WITH REFLEX, SERUM Routine 09/14/2024 11:22 AM MANAGER EMPLOYMENT Pleural effusion PRO B-TYPE NATRIURETIC PEPTIDE Routine 09/14/2024 11:22 AM MANAGER EMPLOYMENT Pleural effusion PULMONARY FUNCTION TEST (PFT) Routine 09/11/2024 3:25 PM MANAGER EMPLOYMENT Dyspnea on exertion PULMONARY FUNCTION TEST (PFT) Routine 09/03/2024 4:30 PM MANAGER EMPLOYMENT Dyspnea on exertion XR CHEST PA LATERAL 2 VIEWS Schedule Routine, Read Routine (OP Routine) 09/03/2024 4:07 PM MANAGER EMPLOYMENT Shortness of breath TRANSTHORACIC ECHO (TTE) COMPLETE W DOPPLER/CF WO CONTRAST Routine 09/03/2024 3:07 PM MANAGER EMPLOYMENT Dyspnea on exertion DIFFERENTIAL AUTO Routine 08/05/2024 10: 52 AM MANAGER EMPLOYMENT Dyspnea on exertion CBC WITH AUTO DIFFERENTIAL Routine 08/05/2024 10:52 AM MANAGER EMPLOYMENT Dyspnea on exertion TSH Routine 08/05/2024 10:52 AM MANAGER EMPLOYMENT Dyspnea on exertion XR CHEST PA LATERAL 2 VIEWS Schedule Routine, Read Routine (OP Routine) 07/14/2024 1:11 PM MANAGER EMPLOYMENT Dyspnea on exertion from Last 3 Months Results * (ABNORMAL) SHAHID ab ql w/rflx to SHAHID qn (09/14/2024 11:22 AM MANAGER EMPLOYMENT) SHAHID Positive 1:320 Comment: Interpretive Data Normal [...] last revised on 2020. Testing performed by: [facility], [address] [place]., [address] SHAHID, quant 1:320 titer LEOBARDO Escobedo (EH) Comment:Testing performed by : [facility], [address] [place]., [address] SHAHID, interp Homogeneous (A) LEOBARDO ANDERSON (EH) Comment:Testing performed by : [facility], [address] [place]., [address] Blood 09/14/2024 11:2 2 AM MANAGER EMPLOYMENT 09/14/2024 4:15 PM MANAGER EMPLOYMENT us Rob Lisa MD LAB BLOOD ORDERABLES Final Resul t LEOBARDO ANDERSON (EH) 1 [facility] Department of Laboratories [place], [place] [id number] * Clinical pathology report (09/14/2024 11:22 AM MANAGER EMPLOYMENT) Miscellaneous 09/14/2024 11: 22 AM MANAGER EMPLOYMENT 09/15/2024 8:06 AM MANAGER EMPLOYMENT Narrative 09/17/2024 2:52 PM MANAGER EMPLOYMENT EPIC results best viewed via link to PDF [facility] Department of Pathology [address] [place] [id number] Final Report Note to Patients: This report [...] the details. Patient Name: GABRIELA RICO Address: [address] [place] [address] Gender: F : 1940 (Age: 84) Service: Location: Hospital #: [id number] Patient Type: [facility] ANCILLARY Taken: 09/14/2024 Received: 09/15/2024 Accessioned: 09/15/2024 Physician(s): Rob Lisa M.D. [facility] Specimen(s) Received A: Blood (serum) Serum [...] determined by the Surgical Pathology Department at [facility] as part of an ongoing quality director program and in compliance with federally mandated [...] characteristics determined by the Surgical Pathology Department [facility]. It has not been cleared or approved by the U. S. Food and Drug Administration. REPORT IMAGES AND SCANNED DOCUMENTS, IF INCLUDED, ONLY VIEWABLE IN PDF VERSION OF REPORTe o Rob Lisa MD LAB PATHOLOGY ORDERABLES Final R esult * SONI ab eval w/reflex (09/14/2024 11:22 AM MANAGER EMPLOYMENT) SONI ab Negative Negative Comment: Interpretive Data Positive Screens will be reflexed to specific testing for Antibodies against the following antigens: Abena-1 Ab, PACKING HOUSE SUPERVISOR Ab, Scl-70 Ab, Quevedo Ab, SS-A/Ro Ab, and SS- B/La Ab. Further testing for dsDNA, Centromere, or Ribosomal P antibodies is suggested in patient with a positive screen and negative specific antibodies. Current interpretive data was last revised on 2023. Testing performed by: [facility], 1 [facility], [place]., [address] Blood 09/14/2024 11:2 2 AM MANAGER EMPLOYMENT 09/14/2024 4:15 PM MANAGER EMPLOYMENT Rob Lisa MD LAB BLOOD ORDERABLES Final Resul t [facility] [place] [facility] Department [place] [address] * Pro B-type natriuretic peptide (09/14/2024 11:22 AM MANAGER EMPLOYMENT) NT-proBNP 324 <=450 pg/mL Comment: Interpretive Comments: [...] Date: 2018. Blood 09/14/2024 11:2 2 AM MANAGER EMPLOYMENT 09/14/2024 1:31 PM MANAGER EMPLOYMENT us Rob Lisa MD LAB BLOOD ORDERABLES Final Resul t [facility] [place]) 9 [facility] Department [place] [address] * Cyclic citrul peptide antibody, IgG (09/14/2024 11:22 AM MANAGER EMPLOYMENT) CCP Ab <0.5 <=2.9 units/mL Comment: Interpretive data Negative: <3 units/mL Positive: > or equal to 3 units/mL Current interpretive data was last revised on 2016. Testing performed by: [facility], 1 [facility], [place]., [address] Blood 09/14/2024 11:2 2 AM MANAGER EMPLOYMENT 09/14/2024 4:16 PM MANAGER EMPLOYMENT us Rob Lisa MD LAB BLOOD ORDERABLES Final Resul t LEOBARDO ANDERSON ([place]) 1 [facility] [place] [address] * (ABNORMAL) Erythrocyte sedimentation rate (09/14/2024 11:22 AM MANAGER EMPLOYMENT) Erythrocyte sedimentation rate 134(H) 1 - 30 mm/hr Blood 09/14/2024 11:2 2 AM MANAGER EMPLOYMENT 09/14/2024 1:31 PM MANAGER EMPLOYMENT us Rob Lisa MD LAB BLOOD ORDERABLES Final Resul t Performing Organization Address [facility] Co de Phone Number LEOBARDO ANDERSON ([place]) 1 [facility] Department of [place] [address] * Rheumatoid factor (09/14/2024 11:22 AM MANAGER EMPLOYMENT) Rheumatoid factor, quant 15 <=15 IUnits/mL Comment:Testing performed by : [facility], [address] [place] [address]., [address] Blood 09/14/2024 11:2 2 AM MANAGER EMPLOYMENT 09/14/2024 4:33 PM MANAGER EMPLOYMENT us Rob Lisa MD LAB BLOOD ORDERABLES Final Resul t Performing Organization Address [facility]/ZIP Co de Phone Number LEOBARDO ANDERSON ([place]) 1 [facility] Department [place] [address] * (ABNORMAL) CRP (acute phase) (09/14/2024 11:22 AM MANAGER EMPLOYMENT) CRP 135.6(H) <=10.0 mg/L Blood 09/14/2024 11:2 2 AM MANAGER EMPLOYMENT 09/14/2024 1:31 PM MANAGER EMPLOYMENT us Rob Lisa MD LAB BLOOD ORDERABLES Final Resul t [facility] ([facility]) [address] Department [place] [address] * (ABNORMAL) Protein electrophoresis with reflex, serum (09/14/2024 11:22 AM MANAGER EMPLOYMENT) Protein, sr 7.2 6.2 - 8.2 g/dL Comment:Testing performed by : [facility], [address] [place] [address]., [address] Albumin 2.8(L) 3.2 - 5.0 g/dL [facility] ([facility]) Comment:Testing performed by : [facility], [address] [place] [address]., [address] Alpha-1 globulin 0.7(H) 0.2 - 0.4 g/dL [facility] ([facility]) Comment:Testing performed by : [facility], [address] [place] [address], [address] Alpha-2 globulin 1.1(H) 0.5 - 1.0 g/dL [facility] Comment:Testing performed by : [facility], [address] [place] [address]., [address] Beta-1 globulin 0.5 0.3 - 0.6 g/dL [facility] Comment:Testing performed by : [facility], [address] [place] [address]., [address] Beta-2 globulin 0.7(H) 0.2 - 0.6 g/dL [facility] Comment:Testing performed by : [address], [address] Gamma globulin 1.4 0.5 - 1.7 g/dL [facility] ([facility]) Comment:Testing performed by : [facility], [address] [place] [address], [address] SPEP interp See Cl Path Rpt [facility] ([facility]) Comment:Testing performed by : [address], [address] Blood 09/14/2024 11:2 2 AM MANAGER EMPLOYMENT 09/14/2024 4:33 PM MANAGER EMPLOYMENT us Rob Lisa MD LAB BLOOD ORDERABLES Final Resul t [facility] [place]) 1 [facility] Department [place] [address] * Pulmonary Function Test - (09/11/2024 3:25 PM MANAGER EMPLOYMENT) Anatomical Region Laterality Modality PFT 09/11/2024 2:05 PM MANAGER EMPLOYMENT Impressions 09/15/2024 5:05 PM MANAGER EMPLOYMENT 1. Severe restrictive ventilatory limitation 2. Severe diffusion impairment Electronically signed by Rob Lisa MD Pulmonary & Critical Care Narrative 09/15/2024 5:05 PM MANAGER EMPLOYMENT PULMONARY FUNCTION TESTS Gabriela Rico 84 y.o. [...] and carboxyhemoglobin DLCO is 38 % predicted us Rob Lisa MD PFT ORDERABLES Final Result * Pulmonary Function Test -[facility]; Complete PFT with 6 Minute Walk (09/03/2024 4:30 PM MANAGER EMPLOYMENT) Anatomical Region Laterality Modality PFT Impressions 09/07/2024 8:42 AM MANAGER EMPLOYMENT 1. Total 6 minute walk distance is [...] and Critical Care Narrative 09/07/2024 8:42 AM MANAGER EMPLOYMENT SIX MINUTE WALK TEST Gabriela Suero Gerardo 09/07/2024 Interpretation: The patient walked for 6 [...] X-ray chest 2 views (09/03/2024 4:07 PM MANAGER EMPLOYMENT) Anatomical Region Laterality Modality Body, Chest N/A Computed Radiogr aphy 09/06/2024 5:41 AM MANAGER EMPLOYMENT Narrative 09/06/2024 5:52 AM MANAGER EMPLOYMENT EXAM DESCRIPTION: XR CHEST PA LATERAL 2 [...] Gee García M.D. MZ: LACEY Report ID: [id number] Reading Location: [id number] Procedure Note Gee García MD - 09/06/2024 [...] Gee García M.D. MZ: LACEY Report ID: [id number] Reading Location: [place] [address] Stuart French DO IMG XR PROCEDURES Final R esult * TRANSTHORACIC ECHO (TTE) COMPLETE W DOPPLER/CF WO CONTRAST (09/03/2024 3:07 PM MANAGER EMPLOYMENT) LV EF 60 % CONS SCIMAGE Anatomical Region Laterality Modality Ultrasound 09/03/2024 2:32 PM MANAGER EMPLOYMENT Narrative 09/03/2024 4:47 PM MANAGER EMPLOYMENT [address] [place] [address] Echocardiogram Report Patient Name: GABRIELA RICO L [...] By: Dr Gianluca Mcgee 09/03/2024 4:47:15 PM MANAGER EMPLOYMENT Procedure Note Gianluca Mcgee MD - 09/03/[address] [place] [address] Echocardiogram Report Patient Name: GABRIELA RICO L : 1940 Study Date: 09/03/2024 2:32:35 PM Gender: F Tech: Location: Echo Lab 2 Ref Provider: ROB [...] By: Dr Gianluca Mcgee 09/03/2024 4:47:15 PM MANAGER EMPLOYMENT us Rob Lisa MD CV ECHO PROCEDURES Final Result * (ABNORMAL) Differential, auto (08/05/2024 10:52 AM MANAGER EMPLOYMENT) Neutrophil abs 6.7(H) 1.5 - 6.5 K/cumm [...] on 2017. Blood 08/05/2024 10:5 2 AM MANAGER EMPLOYMENT 08/05/2024 1:43 PM MANAGER EMPLOYMENT Rob Lisa MD LAB BLOOD ORDERABLES Final Resul t Performing Organization Address City/[facility] Co de Phone Number [facility] ([facility]) 1 [facility] Thumb Reading [place] [address] * (ABNORMAL) CBC with auto differential (08/05/2024 10:52 AM MANAGER EMPLOYMENT) WBC 8.9 3.8 - 9.9 K/cumm Hgb 11.0(L) 11.9 - 15.5 g/dL [facility] ([facility]) Hct 35.7 35.6 - 45.5 % [facility] ([facility]) Plt 436(H) 150 - 400 K/cumm [facility] ([facility]) MPV 9.0(L) 9.1 - 12.3 fL [facility] ([facility]) RBC 4.19 3.90 - 5.20 M/cumm [facility] ([facility]) MCV 85.2 81.3 - 96.4 fL [facility] ([facility]) MCH 26.3(L) 27.1 - 33.3 pg [facility] ([facility]) MCHC 30.8(L) 32.3 - 35.7 g/dL [facility] ([facility]) RDW CV 14.5 11.1 - 14.9 % [facility] ([facility]) RDW SD 45.0 35.7 - 48.1 fL [facility] ([facility]) NRBC abs 0.00 0.00 - 0.01 K/cumm [facility] ([facility]) Blood 08/05/2024 10:5 2 AM MANAGER EMPLOYMENT 08/05/2024 1:43 PM MANAGER EMPLOYMENT Rob Lisa MD LAB BLOOD ORDERABLES Final Resul t Performing Organization Address [facility] Co de Phone Number [facility]) 1 [facility] [place] [address] * TSH (08/05/2024 10:52 AM MANAGER EMPLOYMENT) Thyroid Stimulating Hormone 1.59 0.30 - 4.20 mcIUnit/mL Blood 08/05/2024 10:5 2 AM MANAGER EMPLOYMENT 08/05/2024 1:43 PM MANAGER EMPLOYMENT us Rob Lisa MD LAB BLOOD ORDERABLES Final Resul t LEOBARDO ANDERSON ([place]) 1 [facility] Department [place] [address] * X-ray chest 2 views (07/14/2024 1:11 PM MANAGER EMPLOYMENT) Anatomical Region Laterality Modality Body, Chest N/A Digital Radiogra phy 07/14/2024 1:26 PM MANAGER EMPLOYMENT Narrative 07/14/2024 1:28 PM MANAGER EMPLOYMENT EXAM DESCRIPTION: XR CHEST PA LATERAL 2 [...] signed by Gianluca LUCAS T: Report ID: [id number] Reading Location: [id number] Procedure Note Gianluca Casey MD - 11/26/2024 EXAM DESCRIPTION: XR CHEST PA LATERAL 2 [...] 1:28 PM - Electronically signed by Gianluca Casey M.D. T: Report ID: [id number] Reading Location: [place] [address] Rob Lisa MD IMG XR PROCEDURES Final Result from Last 3 Months Insurance MEDICARE [facility] Advance Directives For more information, please contact: [phone] Documents on File Type Date Recorded Patient Accounts Receivable Executive Expl anation ADVANCE DIRECTIVE 04/07/2013 12:00 AM JEN SKELTON [facility] Care Teams Supervisor Instrument Repair Relationship Specialty Start Date End Date Jackson Blank MD PCP - General Internal Medicine 11/08/23
--- OUTSIDE RECORDS SUMMARY | 2024-09-29 01:01 | XMS_ITS | Encounter Summary ---
Author Organization [facility] Address [address] [place] [address] Care Team Providers Care Engineer Steam Name Role Phone Abhay Jackson Ramirez DO Primary Care Provider [phone] Encounter Details Date Type Department Care Team (Late st Contact Info) Description 02/14/2009 Outpatient Historical [facility] Andreina Rodriguez MD [address] [facility] [address] [place] [address] Esophageal Reflux Social History Tobacco Use Types Packs/Day Years Used Date Smoking Tobacco: Never Assessed Comments Unknown Sex and Gender Information Value Date Recorded Sex Assigned at Not on file Legal Sex Female 4:55 AM MELTER ASSISTANT Gender Identity Not on file Sexual Orientation Not on file documented as of this encounter Plan of Treatment Not on file documented as of this encounter Procedures Procedure Name Priority Date/Time Associated Diagnosis Comments PATHOLOGY Routine 02/14/2009 5:00 PM CDT documented in this encounter Results * PATHOLOGY (02/14/2009 5:00 PM CDT) FINAL REPORT [address] [address] Patient: GABRIELA CARRILLO : 1940 Procedure Date: 02/14/2009 Accession Date: 02/15/2009 Case No: [id number] Ordering Dr: ANDREINA RODRIGUEZ Case types AW, BW, FW, NW and SH are performed by [facility] [place], [place], [place] SURGICAL PATHOLOGY & NON-GYNECOLOGIC CYTOPATHOLOGY REPORT DIAGNOSIS SMALL INTESTINE, PROXIMAL DUODENUM, BIOPSY: - NO SIGNIFICANT HISTOPATHOLOGIC ABNORMALITIES. DISTAL ESOPHAGUS, BIOPSY: - MILD REACTIVE CHANGES. LARGE INTESTINE, CECUM, BIOPSY: - FRAGMENTS OF TUBULAR ADENOMA. LARGE INTESTINE, ASCENDING COLON, BIOPSY: - FRAGMENTS OF TUBULAR ADENOMA. LARGE INTESTINE, DESCENDING COLON, BIOPSY: - FRAGMENTS OF TUBULAR ADENOMA. - FRAGMENTS OF HYPERPLASTIC POLYP. Specimen Description: (1) Small bowel biopsy proximal duodenum; (2) distal esophageal biopsy; (3) cecal polyp; (4) ascending colon polyps; (5) descending colon polyps. Operative Procedure: Esophagogastroduodenoscopy and colonoscopy. Patient Information/History/Diagnosi s: (1) Small bowel Bx. Rule out sprue (chronic diarrhea and/or Fe-deficiency anemia); (2) Endoscopic findings c/w Alcazar's Esophagus. Bx from this area above GE junction. Is there dysplasia? (3), (4), (5) Colon polyp(s). Adenomatous vs. hyperplastic vs. other. Gross: The specimen is received in five parts, all labeled Gabriela Carrillo. Received in the first container labeled proximal duodenum is a single piece of chavez tissue measuring 0.3 cm in greatest dimension. It is labeled A1. Received in the second container labeled distal esophagus is a single piece of translucent hudson tissue measuring 0.3 cm in greatest dimension. It is labeled B1. Received in the third container labeled cecum polyp are three pieces of hudson tissue, each measuring 0.1 cm in greatest dimension. All are labeled C1. Received in the fourth container labeled ascending colon polyps are five pieces of chavez tissue. The largest measures 0.3 cm in greatest dimension. The others measure 0.2 cm in greatest dimension. All are labeled D1. Received in the fifth container labeled descending colon polyps are eight pieces of hudson to yellow material ranging from 0.4 to 0.1 cm in greatest dimension. All are labeled E1. [facility] 02.15.2009 09:51 am Microscopic: The slides are labeled [id number] and Gabriela Carrillo. The small bowel biopsy consists of fragments of duodenal mucosa with Keyla's glands distorting the mucosa. A few villi demonstrate normal villous architecture. There is no significant inflammation or lymphocytosis. The distal esophageal biopsy consists of a fragment of squamous epithelium showing mild reactive changes without inflammation. Glandular epithelium is not present. The cecal biopsy consists of colonic mucosal fragments showing tubular adenoma. The ascending colon biopsy consists of colonic mucosal fragments showing tubular adenoma. The descending colon biopsy includes colonic mucosal fragments showing hyperplastic polyp and tubular adenoma. STARR/MADELEINE 02.16.2009 11:52 am Staging Form: No. ELECTRONIC SIGNATURE FOR MANGO COUGHLIN M.D.- 02/16/09 04:00 pm INTERFACE SYSTEM 02/14/2009 5:00 PM CDT us Andreina Rodriguez MD PATHOLOGY/CYTOLOGY ORDERAB LES Final Result INTERFACE SYSTEM Refer to clinic/hospital department documented in this encounter Visit Diagnoses Diagnosis Esophageal reflux documented in this encounter Care Teams Engineer Steam Relationship Specialty Start Date End Date Jackson Blank DO [address] [place] [address] PCP - General 08/03/15 documented as of this encounter
--- OUTSIDE RECORDS SUMMARY | 2024-09-29 01:01 | XMS_ITS | Clinical Summary ---
Author Organization [facility] Administrative Offices Address [address] [place] [address] Care Team Providers Care Maintenance Apprentice Name Role Phone AbhayJackson Primary Care Provider [phone] Allergies Active Allergy Reactions Criticality Noted Date Comments Sulfa (Sulfonamide Antibiotics) Swelling Low 03/2010 Medications atorvastatin (LIPITOR) 40 mg Oral tablet Take 40 mg by mouth Daily LATE. Active nebivolol (BYSTOLIC) 5 mg Oral Tab Take 5 mg by mouth daily. 1 Active hydrochlorothia zide (HYDRODIURIL) 12.5 mg Oral tablet Take 12.5 mg by mouth daily. Active alendronate (FOSAMAX) 70 mg Oral tablet Take 70 mg by mouth every 7 days. empty stomach before other meds,with 8oz of water, stay upright 30 min Active esomeprazole (NEXIUM) 40 mg Oral CpDR Take 40 mg by mouth daily before breakfast. Active albuterol (VENTOLIN) 90 mcg/Actuation Inhalation Aero Take 2 Puffs by inhalation every 6 hours as needed for Other (See Comment). Active Immunizations Immunization Administration Dates Next Due Influenza Vaccine Tri Split 4+ Im 05/28/2002 Pneumococcal Polysaccharide Vacc 23-maximiliano IM SCHIP 05/28/2002 Family History Medical History Relation Name Comments Colon Cancer Father Relation Name Status Comments Father Mother Social History Tobacco Use Types Packs/Day Years Used Date Smoking Tobacco: Never Smokeless Tobacco: Never Alcohol Use Standard Drinks/Week Comments No 0 (1 standard drink = 0.6 oz pur e alcohol) Comments Unknown Sex and Gender Information Value Date Recorded Sex Assigned at Not on file Legal Sex Female 4:55 AM AUXILIARY PLANT OPERATOR Gender Identity Not on file Sexual Orientation Not on file Last Filed Vital Signs Vital Sign Reading Time Taken Comments Blood Pressure 145/66 08/23/2010 9:12 AM AUXILIARY PLANT OPERATOR Pulse 71 08/23/2010 9:12 AM AUXILIARY PLANT OPERATOR Temperature 36.2 C (97.2 F) 08/23/2010 9:00 AM AUXILIARY PLANT OPERATOR Respiratory Rate 16 08/23/2010 9:12 AM AUXILIARY PLANT OPERATOR Oxygen Saturation 100% 08/23/2010 9:12 AM AUXILIARY PLANT OPERATOR Inhaled Oxygen Concentration - - Weight 57.2 kg (126 lb) 08/23/2010 7:13 AM AUXILIARY PLANT OPERATOR Height 152.4 cm (5') 08/23/2010 7:13 AM AUXILIARY PLANT OPERATOR Body Mass Index 24.61 08/23/2010 7:13 AM AUXILIARY PLANT OPERATOR Plan of Treatment Health Maintenance Due Date Last Done Comments DTAP/TDAP/TD VACCINES (1 - Tdap) 1958 ZOSTER VACCINE (1 of 2) 1989 PNEUMOCOCCAL VACCINE 65+ YEA RS (2 of 2 - PCV) 05/28/2003 05/28/2002 OSTEOPOROSIS SCREENING 2004 RSV VACCINE (60+ or ) (1 - 1-dose 75+ series) 2014 INFLUENZA VACCINE (#1) 2024 05/28/2002 COLORECTAL SCREENING Discontinued 08/23/2010, 09/27/19 10 Colorectal Cancer Screening Discontinued FIT-DNA Q 3 years Discontinued FIT/FOBT Q 1 year Discontinued Flex Sig/CT Colonography Q 5 years Discontinued Insurance MEDICARE PART A AND B [facility] [place] [id number] Advance Directives For more information, please contact: [phone] * Full Code (Latest Code Status on File) Date Activated Date Inactivated Comments 08/23/2010 7:22 AM 08/24/2010 2:32 AM * Full Code Date Activated Date Inactivated Comments 09/27/2009 9:35 AM 09/28/2009 2:01 AM Care Teams Maintenance Apprentice Relationship Specialty Start Date End Date Jackson Blank DO [address] [place] [address] PCP - General 08/03/15
--- OUTSIDE RECORDS SUMMARY | 2024-09-29 01:01 | XMS_ITS | Encounter Summary ---
Author Organization [employer] Address 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 Gender Identity Not on file Sexual Orientation Not on file documented as of this encounter Plan of Treatment Not on file documented as of this encounter Procedures Procedure Name Priority Date/Time Associated Diagnosis Comments PATHOLOGY Routine 01/22/2008 2:14 PM CDT CBC WITH DIFFERENTIAL Stat 01/22/2008 10:22 AM CDT HEPATIC FUNCTION PANEL Stat 01/22/2008 10:22 AM CDT HEMOGLOBIN AND HEMATOCRIT Routine 01/16/2008 2:15 PM CDT T3 FREE Routine 01/16/2008 2:15 PM CDT TSH Routine 01/16/2008 2:15 PM CDT T4 FREE Routine 01/16/2008 2:15 PM CDT BASIC METABOLIC PANEL Routine 01/16/2008 2:15 PM CDT documented in this encounter Results * PATHOLOGY (01/22/2008 2:14 PM CDT) FINAL REPORT [facility] [address] [place], [place] [address] Patient: GABRIELA CARRILLO : 1940 Procedure Date: 01/22/2008 Accession Date: 01/22/2008 Case No: [id number] Ordering Dr: LUCILA TURNER Case types AW, BW, FW, NW and SH are performed by [facility] - [place], [place], [place] SURGICAL PATHOLOGY & NON-GYNECOLOGIC CYTOPATHOLOGY REPORT DIAGNOSIS GALLBLADDER, CHOLECYSTECTOMY: - LITHIASIS. - CHRONIC CHOLECYSTITIS. Specimen Description: Gallbladder. Operative Procedure: Endoscopic cholecystectomy. Patient Information/Histor y/Diagnosis: Abdominal pain and nausea. Gross: Received in a single container and labeled aGbriela Carrillo., gallbladder is an intact gallbladder measuring 6.1 x 3.2 x 3.0 cm. The cystic duct is clamped and measures 0.2 cm in diameter. The serosa is chavez- green, smooth and glistening. The mucosa is chavez and velvety with multiple black, irregular, choleliths identified in the lumen. The choleliths range from 0.1 up to 0.5 cm in greatest dimension and aggregate to 1.3 x 1.0 x 0.3 cm. The wall is pliable and averages 0.1 cm in thickness. Lymph nodes are not identified around the cystic duct. Architect Naval sections, including the cystic duct margin are submitted in cassette A1. LWL/SKW 01.22.2008 05:02 pm Microscopic: The slide is labeled Gabriela Carrillo, [id number]. The gallbladder shows low-grade chronic cholecystitis. TIA/TMZ 01.23.2008 04:08 pm Staging Form: NO ELECTRONIC SIGNATURE FOR GUDELIA ALVARADO M.D.- 01/23/08 05:30 pm INTERFACE SYSTEM 01/22/2008 2:14 PM CDT Lucila Turner MD PATHOLOGY/CYTOLOGY ORDERABLES Final Result Performing Organization Address City/[facility] Co de Phone Number INTERFACE SYSTEM Refer to clinic/hospital department * (ABNORMAL) HEPATIC FUNCTION PANEL (01/22/2008 10:22 AM CDT) ALT 19 0 - 31 U/L [facility] BILIRUBIN TOTAL 0.3 0.2 - 1.0 mg/dL [facility] ALKALINE PHOSPHATASE 33(L) 35 - 104 U/L [facility] BILIRUBIN DIRECT 0.1 0.0 - 0.3 mg/dL [facility] TOTAL PROTEIN 7.9 6.3 - 8.6 g/dL [facility] AST 25 12 - 32 U/L [facility] ALBUMIN 4.8 3.4 - 4.8 g/dL [facility] Blood specimen (specimen) 01/22/2008 10:22 AM CDT 01/22/2008 10:37 AM CDT Narrative [facility] - 01/22/2008 11:16 AM CDT RM 33 us Lucila Turner MD CHEMISTRY ORDERABLES Final Res ult Performing Organization Address City/[facility] Co de Phone Number [facility] CLIA# [id number] [address] [place] [address] * CBC WITH DIFFERENTIAL (01/22/2008 10:22 AM CDT) MCV 93.4 82.0 - 99.0 fL [facility] PLATELETS 248 140 - 350 K/uL [facility] HEMOGLOBIN 14.1 11.8 - 14.8 g/dL [facility] RDW 12.5 11.5 - 14.5 % [facility] WBC 7.1 4.0 - 9.8 K/uL [facility] MCH 30.9 27.2 - 32.6 pg [facility] MPV 9.5 9.3 - 12.4 fL [facility] HEMATOCRIT 42.7 35.5 - 44.0 % [facility] RDW-STDEV 42.0 37.1 - 48.7 fL [facility] RBC 4.57 3.90 - 4.90 M/uL [facility] MCHC 33.0 31.5 - 35.5 % [facility] NEUTROPHILS 67 45 - 70 % [facility] NEUTROPHIL ABSOLUTE 4.72 1.90 - 7.00 K/uL [facility] EOSINOPHILS 1 0 - 7 % [facility] EOSINOPHIL ABSOLUTE 0.06 0.00 - 0.70 K/uL [facility] LYMPHOCYTES 26 16 - 45 % [facility] LYMPHOCYTE ABSOLUTE 1.84 0.70 - 4.50 K/uL [facility] BASOPHILS 0 0 - 2 % [facility] BASOPHILS ABSOLUTE 0.03 0.00 - 0.20 K/uL [facility] MONOCYTES 6 3 - 13 % [facility] MONOCYTE ABSOLUTE 0.41 0.10 - 1.30 K/uL [facility] Blood specimen (specimen) 01/22/2008 10:22 AM CDT 01/22/2008 10:37 AM CDT us Lucila Turner MD HEMATOLOGY ORDERABLES Edited INTERFACE SYSTEM Refer to clinic/hospital department [facility] CLIA# [id number] [address] [place], [place] [address] * TSH (01/16/2008 2:15 PM CDT) TSH 0.65 0.27 - 4.20 uU/mL [facility] Blood specimen (specimen) 01/16/2008 2:15 PM CDT 01/16/2008 3:37 PM CDT Result [facility] Lucila Turner MD CHEMISTRY ORDERABLES Final Res ult Performing Organization Address City/[facility] Co de Phone Number [facility] CLIA# [id number] [address] [place] [address] * T4 FREE (01/16/2008 2:15 PM CDT) [facility] T4 FREE 1.2 0.9 - 1.7 ng/dL [facility] Blood specimen (specimen) 01/16/2008 2:15 PM CDT 01/16/2008 3:37 PM CDT Result [facility] Lucila Turner MD CHEMISTRY ORDERABLES Final Res ult Performing Organization Address [facility] Co de Phone Number [facility] CLIA# [id number] [address] [place] [address] * T3 FREE (01/16/2008 2:15 PM CDT) T3 FREE 3.3 2.5 - 4.4 pg/mL [facility] Blood specimen (specimen) 01/16/2008 2:15 PM CDT 01/16/2008 3:37 PM CDT Result [facility] Lucila Turner MD CHEMISTRY ORDERABLES Final Res ult Performing Organization Address [facility] de Phone Number [facility] CLIA# [id number] [address] [place] [address] * HEMOGLOBIN AND HEMATOCRIT (01/16/2008 2:15 PM CDT) HEMOGLOBIN 13.4 11.8 - 14.8 g/dL [facility] HEMATOCRIT 40.7 35.5 - 44.0 % [facility] Blood specimen (specimen) 01/16/2008 2:15 PM CDT 01/16/2008 3:37 PM CDT Lucila Turner MD HEMATOLOGY ORDERABLES Final Re sult [facility] CLIA# [id number] [address] [facility] [facility] [address] [facility] [place] [address] * (ABNORMAL) BASIC METABOLIC PANEL (01/16/2008 2:15 PM CDT) CREATININE 0.66 0.51 - 0.95 mg/dL [facility] POTASSIUM 3.5 3.5 - 4.9 mmol/L [facility] BUN 14 6 - 20 mg/dL [facility] CHLORIDE 100 96 - 108 mmol/L [facility] GLUCOSE 131(H) 65 - 99 mg/dL [facility] SODIUM 142 135 - 145 mmol/L [facility] CALCIUM 9.3 8.4 - 10.2 mg/dL [facility] CO2 28 22 - 30 mmol/L [facility] GFR, >60 >=60 mL/min/1. 7 sq meter [facility] GFR >60 >=60 mL/min/1. 7 sq meter [facility] Comment: Modification of Diet in Renal Disease (MDRD) study formula. Estimated GFR rate interpretative information for both Americans and non- Americans is available on the [facility] Intranet at: [email or web address] Select: Lab Policies and Procedures Select: Reference Ranges - GFR Blood specimen (specimen) 01/16/2008 2:15 PM CDT 01/16/2008 3:37 PM CDT us Lucila Turner MD CHEMISTRY ORDERABLES Edited [facility] CLIA# [id number] [address] [place] [address] documented in this encounter Visit Diagnoses Diagnosis Calculus of gallbladder without mention of cholecystitis or obstruction documented in this encounter Care Teams Bi Specialist Relationship Specialty Start Date End Date Jackson Blank DO [address] [place] [address] PCP - General 08/03/15 documented as of this encounter
--- OUTSIDE RECORDS SUMMARY | 2024-09-29 01:01 | XMS_ITS | Encounter Summary ---
Author Organization [employer] Address 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
--- NOTE | 2024-09-29 10:15 | P.PNAN_ITS ---
Anes - Initial Pre Proc Eval Procedure: Operation Date: 09/29/24 11:30 Proposed Procedures p Esophagogastroduodenoscopy & Colonoscopy - Hubert Dias MD Date/Time: 09/29/24 10:15 Surgeon: Hubert Dias MD Pre Op Diagnosis: abnormal weight loss, early satiety, abd pain Patient Data Age: 84 Gender: F Height: 1.5 m Weight: 49.5 kg Allergies Allergy/AdvReac Type Severity Reaction Status Date / Time Sulfa (Sulfonamide Allergy Unknown Unknown Verified 09/23/24 10:20 Antibiotics) Home Medications ?Medication ?Instructions ?Recorded ?Confirmed ?Type lisinopril 2.5 mg tablet 2.5 mg PO BID 09/01/24 09/23/24 History pantoprazole 40 mg tablet,delayed 40 mg PO BID 8 weeks #112 tabs 09/01/24 09/23/24 Rx release ondansetron HCl 4 mg tablet 4 mg PO Q6H PRN nausea and 09/28/24 Rx vomiting #4 tabs Patient hx anesthesia problems: none Family hx anesthesia problems: none Results Review: All pre-operative results and documents have been reviewed as part of the pre- operative evaluation. [facility] Past Medical History Medical History Early satiety Weight loss Abdominal pain Gastropathy Hiatal hernia Esophagitis Colon polyps Left upper quadrant pain Chronic pain Anxiety Family History Family History Father Carcinoma of colon Mother Heart disease Social History Social History Smoking status: Never smoker Alcohol intake: never Substance use: never Substance use type: does not use Living arrangements: with family Spiritual care concerns: No Anes - Eval Final PreProcedure Day of Procedure 09/29/24 10:15 Patient weight: normal Heart: regular rate and rhythm Lungs: clear to auscultation Neurological: alert and oriented Last oral intake: >/= 8 hours ASA classification: III Emergent: no Anesthetic plan: proceed Anesthesia type and monitoring: general GIVS and standard monitoring Results Review: All pre-operative results and documents have been reviewed as part of the pre- operative evaluation. Informed Consent: The patient's anesthetic plan and its attendant risks and benefits were discussed with the patient/family/POA. Questions were solicited and answers provided to the satisfaction of the patient/family/POA.
[2024-09-29 10:34] VITALS: BP 168/65; PULSE 118; RESP 18; TEMP 36.1; O2SAT 96
[2024-09-29] MEDS: LACTATED RINGERS 1,000 ML 150 ML IV CONT (10:46)
--- NOTE | 2024-09-29 11:06 | WPDANESEPPF ---
Anes - Initial Pre Proc Eval Procedure: Operation Date: 09/29/24 11:30 Proposed Procedures p Esophagogastroduodenoscopy & Colonoscopy - Hubert Dias MD Date/Time: 09/29/24 11:06 Surgeon: Hubert Dias MD Pre Op Diagnosis: abnormal weight loss, early satiety, abd pain Patient Data Age: 84 Gender: F Height: 1.5 m Weight: 48.5 kg Last Vital Signs Temp 97 F L 09/29/24 10:34 Pulse 118 H 09/29/24 10:34 Resp 18 09/29/24 10:34 BP 168/65 H 09/29/24 10:34 Pulse Ox 96 09/29/24 10:34 O2 Del Method Room Air 09/29/24 10:34 Allergies Allergy/AdvReac Type Severity Reaction Status Date / Time Sulfa (Sulfonamide Allergy Unknown Unknown Verified 09/29/24 10:30 Antibiotics) Home Medications ?Medication ?Instructions ?Recorded ?Confirmed ?Type lisinopril 2.5 mg tablet 2.5 mg PO BID 09/01/24 09/29/24 History pantoprazole 40 mg tablet,delayed 40 mg PO BID 8 weeks #112 tabs 09/01/24 09/29/24 Rx release ondansetron HCl 4 mg tablet 4 mg PO Q6H PRN nausea and 09/28/24 Rx vomiting #4 tabs losartan 50 mg tablet 50 mg PO DAILY 09/29/24 09/29/24 History Patient hx anesthesia problems: none Family hx anesthesia problems: none Results Review: All pre-operative results and documents have been reviewed as part of the pre-operative evaluation. [facility] Past Medical History Medical History Early satiety Weight loss Abdominal pain Gastropathy Hiatal hernia Esophagitis Colon polyps Left upper quadrant pain Chronic pain Anxiety Family History Family History Father Carcinoma of colon Mother Heart disease Social History Social History Smoking status: Never smoker Alcohol intake: never Substance use: never Substance use type: does not use Living arrangements: with family Spiritual care concerns: No Anes - Eval Final PreProcedure Day of Procedure 09/29/24 11:06 Patient weight: normal and cachectic Lungs: normal air movement Airway: Mallampati scale class II Neurological: alert and oriented Last oral intake: >/= 8 hours ASA classification: III Emergent: no Anesthetic plan: proceed Anesthesia type and monitoring: general GIVS and standard monitoring Results Review: All pre-operative results and documents have been reviewed as part of the pre-operative evaluation. HTN, pleural effusion drained approx 6 months ago. Pt had reported ECHO that was nml and stable pleural effusion. Informed Consent: The patient's anesthetic plan and its attendant risks and benefits were discussed with the patient/family/POA. Questions were solicited and answers provided to the satisfaction of the patient/family/POA.
--- NOTE | 2024-09-29 11:41 | PM.IMHP ---
H&P: HPI History of Present Illness Date/Time: 09/29/24 11:41 Chief Complaint: Weight loss -early satiety-diarrhea Narrative: this patient has been suffering from epigastric discomfort/ early satiety for the past year, which has been progressively worse. At the same time, she noticed a tendency for diarrhea almost all the time, 2-3 episodes per day. More importantly, she has lost more than 25 lb over the past 2 months. She referred for EGD and colonoscopy. Review of Systems Review of Systems: All systems reviewed & are unremarkable except as noted in HPI and below PMFSH Past Medical History Medical History Early satiety Weight loss Abdominal pain Gastropathy Hiatal hernia Esophagitis Colon polyps Left upper quadrant pain Chronic pain Anxiety Family History Family History Father Carcinoma of colon Mother Heart disease Social History Social History Smoking status: Never smoker Alcohol intake: never Substance use: never Substance use type: does not use Living arrangements: with family Spiritual care concerns: No Meds Home Medications and Allergies Home Medications ?Medication ?Instructions ?Recorded ?Confirmed ?Type lisinopril 2.5 mg tablet 2.5 mg PO BID 09/01/24 09/29/24 History pantoprazole 40 mg tablet,delayed 40 mg PO BID 8 weeks #112 tabs 09/01/24 09/29/24 Rx release ondansetron HCl 4 mg tablet 4 mg PO Q6H PRN nausea and 09/28/24 Rx vomiting #4 tabs losartan 50 mg tablet 50 mg PO DAILY 09/29/24 09/29/24 History Allergies Allergy/AdvReac Type Severity Reaction Status Date / Time Sulfa (Sulfonamide Allergy Unknown Unknown Verified 09/29/24 10:30 Antibiotics) Vital Signs Vital Signs - 24 hr 09/29/24 10:34 Temperature 97 F L Pulse Rate 118 H Respiratory Rate 18 Blood Pressure 168/65 H Pulse Oximetry 96 Oxygen Delivery Room Air Exam Const: General: cooperative and healthy appearing Resp: Effort & Inspection: normal respiratory effort and able to speak in complete sentences Auscultation: clear to auscultation bilaterally Cardio: Rate: regular rate Rhythm: regular rhythm GI: Inspection: normal to inspection GI Palp: No No hepatosplenomegaly present Auscultation: normal bowel sounds Rectal Exam: deferred Skin: General skin exam: normal color Psych: Appearance: grossly normal Mental Status: mental status grossly normal Assessment and Plan Assessment and plan (1) Weight loss: Code(s): R63.4 - Abnormal weight loss Status: Acute Assessment and Plan: The patient has evidence of severe disease with alarm symptoms such as weight loss and early satiety. Differential diagnosis includes peptic ulcer disease, gastric neoplasms among others. Will perform EGD and colonoscopy with biopsies.
--- NOTE | 2024-09-29 12:03 | SUR.OPER ---
egd ended at 1159 and colonoscopy begun at 1205.
[2024-09-29 12:23] VITALS: BP 128/60; PULSE 98; RESP 29; O2SAT 97
[2024-09-29 12:33] VITALS: BP 140/75; PULSE 96; RESP 20; O2SAT 96
[2024-09-29 12:43] VITALS: BP 135/64; PULSE 98; RESP 23; O2SAT 97
== END 2024-09-29 13:11 | disposition home or self-care (01) ==
PROVIDERS: PCP Internal Medicine; Referring Provider Nurse Practitioner Family; Visit Provider Internal Medicine Gastroenterology
PROC: 0DJ08ZZ Inspection of Upper Intestinal Tract, Via Natural or Artificial Opening Endoscopic (ICD-10-PCS; CPT 45378; principal; 2024-09-29 11:30)
DX: D12.3 Benign neoplasm of transverse colon (principal); K63.5 Polyp of colon; K29.50 Unspecified chronic gastritis without bleeding; G89.29 Other chronic pain; F41.9 Anxiety disorder, unspecified; Z87.19 Personal history of other diseases of the digestive system; Z80.0 Family history of malignant neoplasm of digestive organs; Z82.49 Family history of ischemic heart disease and other diseases of the circulatory system
CPT/HCPCS: 43239; 45385; 45380; 88305; J2003; J2704; J7120